=== PATIENT | male | born 1945 | race Caucasian/White ===

== ENCOUNTER → 2023-05-02 06:31 | Day surgery (SDC) | payer MEDICARE, OTHER, SELFPAY ==
[2023-05-02 12:05] LABS: Glucose - Point of Care 122 mg/dl (70-99)
== END ==
LOC: GI 06:31
PROVIDERS: ATTENDING PHYSICIAN Internal Medicine Gastroenterology
DX: K31.89 Other diseases of stomach and duodenum (principal); K31.7 Polyp of stomach and duodenum; R12 Heartburn; R19.7 Diarrhea, unspecified
CPT/HCPCS: 43239; 88305; 82962; 88342

== ENCOUNTER → 2023-09-16 11:14 | Outpatient (REF) | payer MEDICARE, OTHER, SELFPAY | LOC: HWRCS 11:14 | PROVIDERS: ATTENDING PHYSICIAN Internal Medicine Cardiovascular Disease; FAMILY PHYSICIAN Emergency Medicine | DX: I10 Essential (primary) hypertension (principal) | CPT/HCPCS: 93306 ==

== ENCOUNTER 2023-09-28 21:05 | Inpatient (IN) | payer MEDICARE, OTHER, SELFPAY ==
[2023-09-28] VITALS (8 sets, daily range): BP systolic 115–170; BP diastolic 35–80; BMI 34.0; BMI 33.3
[2023-09-28 15:56] LABS: % Basophils 0.3 % (0-2); % Immature Granulocytes 0.4 % (0-0.5); % Lymphocytes 4.1 % (20.5-51.1); % Monocytes 6.1 % (1.7-9.3); % Neutrophils 89.1 % (42.2-75.2); Absolute Basophils 0.1 10^3/uL (0-0.2); Absolute Immature Granulocytes 0.1 10^3/uL (0-0.05); Absolute Lymphocytes 0.7 10^3/uL (1.2-3.4); Absolute Monocytes 1.1 10^3/uL (0.1-0.6); Absolute Neutrophils 15.9 10^3/uL (1.4-6.5); Hematocrit 42.9 % (39.0-52.0); Hemoglobin 15.9 g/dL (13.0-18.0); Mean Corp Hgb Conc. 37.1 g/dL (33.0-37.0); Mean Corpuscular Hgb 32.9 pg (27.0-31.0); Mean Corpuscular Volume 88.8 fL (80.0-94.0); Mean Platelet Volume 8.7 fL (7.4-10.4); Nucleated Red Blood Cells % 0 % (-); Platelet Count 146 10^3/uL (130-400); Red Blood Cell Count 4.83 10^6/uL (4.70-6.10); Red Cell Dist. Width 12.6 % (11.5-14.5); White Blood Cell Count 17.8 10^3/uL (4.8-10.8)
[2023-09-28 16:16] LABS: ALT (SGPT) 21 U/L (0-50); AST (SGOT) 23 U/L (17-59); Alkaline Phosphatase 74 U/L (38-126); Blood Urea Nitrogen 13 mg/dl (9-20); Calcium 9.7 mg/dl (8.4-10.2); Carbon Dioxide 27 mmol/L (22-30); Chloride 97 mmol/L (98-107); Estimated Creatinine Clearance 88 ml/min; Glucose 155 mg/dl (70-99); Potassium 3.6 mmol/L (3.5-5.1); Sodium 134 mmol/L (135-145); Total Bilirubin 1.2 mg/dl (0.2-1.3); Total Protein 6.3 g/dl (6.3-8.2); eGFR > 60.00
[2023-09-28 16:31] LABS: Troponin I 0.038 ng/ml
--- NOTE | 2023-09-28 18:57 | ED.GENMED ---
History of Present Illness
General
Chief Complaint: Gait Dysfunction
Time Seen by Provider: 09/28/23 17:05
History of Present Illness
History of Present Illness:
78-year-old male with past medical history of hypertension, CAD status post CABG, hyperlipidemia, diabetes presenting to the emergency department for dizziness and feeling off balance. Patient reports symptoms for the past several days. Also
reports some diarrhea and dry heaving. Denies any vomiting. Denies any associate abdominal pain. Denies chest pain. Does note some dyspnea, however denies cough or fever. Denies any known sick contacts. Denies any fall. Denies the dizziness
as room spinning. Denies ever having the symptoms in the past. Patient lives at home by himself. Denies any focal weakness or sensory deficits to his extremities, notes global weakness. Denies additional acute medical complaints
Past History
Past History
ED Past Medical History: CAD, GERD, HTN, Hypercholesterolemia, NIDDM and Other (Cellulitis)
ED Past Surgical History: Appendectomy, Cardiac (CABG) and Cholecystectomy
Social History
Tobacco: Former smoker
Alcohol: Daily
Drug: None
Personal:
Living: alone
Employment: Retired
Family History
Family History: Other (Noncontributory)
Phy Exam
Physical Exam
Physical Exam:
General: No acute distress, dry mucous membranes
HEENT: protecting airway
Neck: appears supple
CV: Normal heart rate, regular rhythm, no evidence of cyanosis
Resp: No accessory muscle use, no increased work of breathing, lungs clear to auscultation bilaterally
Abd: Soft and non-distended, no tenderness to palpation, normal bowel sounds
Extremities: No deformities, no swelling, no erythema, pulses and sensation intact
Neuro: alert, no focal neurologic deficit
: deferred
Rectal: deferred
Psych: Normal affect
Skin: Intact
Course
Orders/Labs/Results
Orders:
Orders
09/28/23 15:38
Electrocardiogram (*1) Urgent
Reason for Study: Chest Pain
EKG- Treatment ONCE
CXR2 [CR Chest - 2 Views ] Urgent
Comment:
Reason For Exam: dizzy
09/28/23 15:44
Complete Blood Count/With Diff Urgent
Comprehensive Metabolic Panel Urgent
Troponin I Urgent
09/28/23 17:24
CT Head W/o Iv Contrast Urgent
Comment:
Reason For Exam: dizzy/off-balance
09/28/23 18:54
COVID-19 Antigen Urgent
Source: Nasal Swab
Abnormal Lab Results
09/28/23
15:44
WBC 17.8 H 10^3/uL
(4.8-10.8)
MCH 32.9 H pg
(27.0-31.0)
MCHC 37.1 H g/dL
(33.0-37.0)
Abs Immat Gran (auto) 0.1 H 10^3/uL
(0-0.05)
Absolute Neuts (auto) 15.9 H 10^3/uL
(1.4-6.5)
Absolute Lymphs (auto) 0.7 L 10^3/uL
(1.2-3.4)
Absolute Monos (auto) 1.1 H 10^3/uL
(0.1-0.6)
Neutrophils % 89.1 H %
(42.2-75.2)
Lymphocytes % 4.1 L %
(20.5-51.1)
Sodium 134 L mmol/L
(135-145)
Chloride 97 L mmol/L
(98-107)
Glucose 155 H mg/dl
(70-99)
Troponin I 0.038 H* ng/ml
09/28/23 15:44
09/28/23 15:44
Vital Signs
Initial and Last Documented VS:
Initial Vital Signs
Temp Pulse Resp BP Pulse Ox
98.2 F 85 16 129/53 96
09/28/23 15:35 09/28/23 15:35 09/28/23 15:35 09/28/23 15:35 09/28/23 15:35
Last Documented Vital Signs
Temp Pulse Resp BP Pulse Ox
98.2 F 74 16 170/71 94
09/28/23 15:35 09/28/23 18:15 09/28/23 18:15 09/28/23 18:03 09/28/23 18:15
MDM/Problems Addressed
MDM/Problems Addressed:
78-year-old male with past medical history of diabetes, hypertension, CAD status post CABG presenting for generally feeling unwell with nausea, dry heaving, shortness of breath, feeling off balance, diarrhea.
On exam, patient is in no acute distress, however appears somewhat dry with dry mucous membranes. Benign cardiac and pulmonary exam. No increased work of breathing. No tenderness to the abdomen. No focal neurologic deficits without concern for
central neurologic process. Patient EKG, abnormal with right bundle branch block and left anterior fascicular block, however without significant change from prior. Patient without chest pain or concern for ACS at this time. Suspect possible viral
syndrome versus electrolyte abnormality versus pneumonia. Plan for laboratory analysis, chest x-ray imaging, COVID swab. Given age and feeling off balance, will obtain CT brain imaging. Patient ambulated, normal gait
19:00- CT without acute intracranial abnormality. Troponin elevated, however again patient remains chest pain-free. Will continue to trend. Chest x-ray shows trace pleural effusion with consolidation. Possible pneumonia, leukocytosis, again
consistent with possible underlying infectious pathology. Patient afebrile, normal blood pressure, without concern for severe sepsis or septic shock. Will start gentle fluid hydration given trace pleural effusion. Will start antibiotics for
community-acquired pneumonia. Labs otherwise unremarkable. Patient lives at home by himself, fall risk. Feel warrants admission for continued monitoring. Patient agreeable to plan.
*EKG
Interpreted by ED Provider?: Yes
EKG Intrepretation Date: 09/28/23
EKG Intrepretation Time: 19:00
Interpretation: abnormal
Comparison EKG: no changes
Heart Rate: 81
Rate: normal
Rhythm: sinus
[place]: normal axis
Interval: normal interval
QRS Pattern: right bundle branch block and other (LAFB)
Ischemia: non-specific ST changes
*Critical Care Note
Total Time (30-74mins, 75-104mins- exclusive of procedures): Not Applicable
ED Attending Note
-
Portions of this chart may have been created with voice recognition software.� Occasional wrong word or��sound alike� substitutions may have occurred due to the inherent limitations of voice recognition software.
Discharge Plan
Departure
Prescriptions:
No Action
aspirin 325 MG tablet
325 mg PO HS
metoprolol succinate 50 MG tablet extended release 24 hr
75 mg PO HS
niacin [Niaspan Extended-Release] 500 MG tablet extended release 24 hr
500 mg PO AMHS
simvastatin 20 MG tablet
10 mg PO HS
chlordiazepoxide-methscopolamn 1 EACH capsule
2.5 mg PO BID
silodosin [Rapaflo] 8 MG capsule
8 mg PO HS
calcium polycarbophil [Fiber-Tabs] 625 MG tablet
625 mg PO QPM
omeprazole 20 MG capsule,delayed release(DR/EC)
20 mg PO BID
hydrochlorothiazide 25 MG tablet
25 mg PO DAILY
multivitamin with folic acid [Tab-A-Fabi] 1 TABLET tablet
1 tab PO DAILY
canagliflozin [Invokana] 100 MG tablet
100 mg PO QPM
calcium carbonate [Tums Ultra] 400 MG tablet,chewable
400 mg PO AMHS Qty: 14 0RF
meclizine 12.5 MG tablet
12.5 mg PO TID PRN (Reason: vertigo ) Qty: 15 0RF
Referrals:
Caroline Hastings MD [Family Provider] -
Interventions
Interventions:
*Risk Screen - Suicide Last Done: 09/28/23 15:35
*General Assessment Last Done: 09/28/23 16:59
*Neglect/Abuse Screening Last Done: 09/28/23 15:35
ED- Fall Risk Assessment Last Done: 09/28/23 15:35
*ED COVID-19 Vaccine History Last Done: 09/28/23 16:59
ED- Neurological Assessment Last Done: 09/28/23 17:01
ED-Musculoskeletal Assessment Last Done: 09/28/23 17:01
Discharge Date and Time
Print Language: OCCITAN
[2023-09-28] MEDS: ROCEPHIN 1000 MG IV (19:14)
[2023-09-28] MEDS: NSS 1000 IV ×2 (19:14→22:28)
[2023-09-28] MEDS: ZITHROMAX INFUSION 250 IV (19:14)
[2023-09-28 19:44] LABS: COVID-19 Antigen Negative (Negative)
--- NOTE | 2023-09-28 21:00 | HPS.HSE ---
Family Physician
-
Family Physician: Caroline Hastings MD
Chief Complaint
-
Generalized weakness
History of Present Illness
78-year-old male who lives independently alone status post CABG, hypertension and diabetes presented to the hospital complaining of few days of progressively worsening generalized weakness and malaise and fatigue and poor appetite and dry heaving
and dry mouth, also whitish coat covering his tongue, denies any chest pain or shortness of breath or fever or chill any syncope or palpitation no weakness or numbness in extremity, admitted couple days ago had couple episodes of nonbloody diarrhea
which went away, no vomiting or hematemesis denies any choking or coughing on his meal.
No sick contacts or recent travel.
Workup in the ER basically showed white cell count of 17 and chest x-ray showed left lower lobe small effusion. Consolidation concerning for pneumonia.
Admit he drinks 2 vodka drinks every night. Denies fall or accident.
Medical History
Past Medical History
Past Medical History: Reports Other
Additional Past Medical History:
Past medical history archive reviewed:
Anxiety
Type 2 diabetes mellitus
Dyslipidemia
Pretension
GERD
Obesity
Coronary artery disease, Status post CABG and PCI status post CABG
Vertigo
Surgical history:
Cardiac cath
Coronary bypass graft
Appendectomy
Cholecystectomy
ORIF left ankle
Social history, lives at home independently, denies smoking drinks every night couple drink of vodka. They deny drugs uses.
Family history: Positive for hypertension, diabetes and coronary artery disease
Past Surgical History: Reports Other
Social History
Unable to obtain full social history at this time due to: Other
Family History
Family History: Other
Allergies / Home Medications
Allergies reflects when Allergies were last updated in [facility].
Home Medications with original date entered in [facility]
Allergy/Medication List:
Allergies
Allergy/AdvReac Type Severity Reaction Status Date / Time
iodine Allergy Unknown Unknown Verified 09/28/23 15:37
Sulfa (Sulfonamide Allergy Swelling Verified 09/28/23 15:37
Antibiotics)
Home Medications
aspirin 325 mg tablet 325 mg PO HS Blood clot prevention/tx 12/19/18
chlordiazepoxide-methscopolamine 5 mg-2.5 mg capsule 2.5 mg PO BID Mental Health/Anxiety 12/19/18
metoprolol succinate 50 mg tablet,extended release 24 hr 75 mg PO HS Blood pressure 12/19/18
niacin 500 mg tablet,extended release 24 hr (Niaspan) 500 mg PO AMHS Supplement 12/19/18
silodosin 8 mg capsule (Rapaflo) 8 mg PO HS 12/19/18
simvastatin 20 mg tablet 10 mg PO HS High cholesterol 12/19/18
calcium polycarbophil 625 mg tablet (Fiber-Tabs) 625 mg PO QPM Constipation 04/13/19
canagliflozin 100 mg tablet (Invokana) 100 mg PO QPM Diabetes 04/13/19
hydrochlorothiazide 25 mg tablet 25 mg PO DAILY Blood pressure 04/13/19
multivitamin with folic acid 400 mcg tablet (Tab-A-Fabi) 1 tab PO DAILY Supplement 04/13/19
omeprazole 20 mg capsule,delayed release 20 mg PO BID Gastrointestinal issue 04/13/19
calcium carbonate (Tums Ultra) 400 mg PO AMHS Gastrointestinal issue ##14 01/04/21
meclizine 12.5 mg tablet 12.5 mg PO TID PRN vertigo #15 tabs 01/07/21
Review of Systems
-
A 12 point ROS was completed and negative except as noted: Yes
Physical Exam
Vital Signs
Vital Signs
Temp Pulse Resp BP Pulse Ox
98.2 F 74 16 170/71 94
09/28/23 15:35 09/28/23 18:15 09/28/23 18:15 09/28/23 18:03 09/28/23 18:15
Physical exam:
General: Awake, alert and oriented x3, overweight, lethargic not in distress and holds appropriate conversation.
HEENT: BP tongue with a whitish coverage, no active discharge, ecchymosis or bruising, dry lips, tongue and mucous membrane.
Eyes: No discharge or red conjunctiva, no nystagmus, pupils are reactive and equal
Neck:Supple, no JVD no bruit no goiter.
Respiratory: Normal AP contour and diameter, normal chest wall movement, normal respiratory effort, no respiratory distress,
Lungs: Good air entry bilaterally, no wheezing or rhonchi, no rales or crackles
Heart: S1, S2 regular, normal rate, no added sound.
Gastrointestinal: Positive bowel sounds, soft, nontender, no guarding or rigidity or organomegaly
Musculoskeletal: , no chest wall abnormality or tenderness. All joints and extremities have good range of motion, no muscle tenderness or any joint swelling or tenderness.
Extremities: No pitting edema, good peripheral pulses, good range of motion
Skin: Warm and dry, no ulceration, normal color.
Neurological: Awake, alert and oriented x3, no facial droop,, speech clear and comprehensive, good muscle tone, normal sensory and motor function
Psychiatric: Normal mood, normal thought and judgment, normal affect,
Physical Exam
General: Other
Laboratory Results
-
09/28/23 15:44
09/28/23 15:44
Laboratory Results
Total Bilirubin 1.2 mg/dl (0.2-1.3) 09/28/23 15:44
AST 23 U/L (17-59) 09/28/23 15:44
ALT 21 U/L (0-50) 09/28/23 15:44
Alkaline Phosphatase 74 U/L (38-126) 09/28/23 15:44
Troponin I 0.038 ng/ml H* 09/28/23 15:[address]: No acute intracranial abnormality.
Chest x-ray:Lungs: Trace left pleural effusion with associated consolidation. No visualized pneumothorax.
EKG showed normal sinus rhythm with 80, WA 190, QTc 480, right bundle branch block otherwise no acute abnormality and compared to prior EKG PVCs no longer present
Data Reviewed
-
Diagnostic Radiology: Image Personally Visualized and interpreted and Discussed with Patient
CT Scan: Report Reviewed by me and Discussed with Patient
Lab Data: Labs Reviewed by me and Discussed with Patient
Old Records: Reviewed
Impression/Plan
-
IMPRESSION:
78-year-old male presented to the hospital with generalized weakness and fatigue and dry heaving for the last few day, with poor appetite, concerning for the left lower lobe infiltration pneumonia while other causes may need to be considered, doubt
a stroke or any cardiac event and has been troponin minimally elevated.
Generalized weakness
Left lower lobe infiltration, concerning for community-acquired pneumonia
Small left pleural effusion
Leukocytosis
Dehydration
Oral candidiasis
Elevated troponin mild
Mild hyponatremia
Diabetes mellitus
Coronary artery disease status post CABG
Obesity
Alcohol use
PLAN:
Managed per community acquired pneumonia I will use doxycycline instead of Zithromax because of mild elevated QTc
IV Rocephin
I will get a CT of the chest without contrast tomorrow for further information about the left lower lobe consolidation and effusion.
IV fluid
Tylenol as needed
Recheck lab
Monitor vital sign
Cardiac monitoring for now
I will hold cardiology consult as troponin is minimally elevated likely secondary to above, if troponin become higher or becomes symptomatic then will consider cardiology consult.
Even he says he drinks 2 alcohol nightly all manage will monitor him for alcohol withdrawal protocol
Get alcohol level
Thiamine
Nystatin suspension orally
Continue Invokana and monitor blood sugar
Continue metoprolol succinate
Statin
Recheck labs
All discussed with the patient in detail and expressed understanding
CODE STATUS of full code
DVT prophylaxis Lovenox
[2023-09-28 21:49] LABS: Magnesium 1.8 mg/dl (1.6-2.3); Phosphorus 2.5 mg/dl (2.5-4.5)
[2023-09-28 21:52] LABS: Alcohol None Detected
[2023-09-28 22:12] LABS: Lactic Acid 1.2 mmol/L (0.7-2.0)
[2023-09-28] MEDS: TOPROL XL 75 MG PO (22:20)
[2023-09-28] MEDS: MYCOSTATIN ORAL SUSPENSION 5 ML PO (22:20)
[2023-09-28] MEDS: FLOMAX 0.4 MG PO (22:20)
[2023-09-28] MEDS: LIPITOR 10 MG PO (22:20)
[2023-09-28 22:31] LABS: Troponin I 0.044 ng/ml
[2023-09-28] MEDS: NIASPAN TIME RELEASE 500 MG PO (23:05)
[2023-09-28] MEDS: VIBRAMYCIN 260 MG IV (23:05)
[2023-09-28 23:25] LABS: Urine Albumin Negative (Neg - Trace); Urine Bilirubin Negative (Negative); Urine Character Clear (Clear); Urine Color Yellow; Urine Glucose 3+ (Negative); Urine Ketone 1+ (Negative); Urine Leukocyte Negative (Negative); Urine Nitrite Negative (Negative); Urine Occult Blood Negative (Negative); Urine Urobilinogen Negative (Neg - 1+)
--- NOTE | 2023-09-28 23:29 | PTCARENOTE ---
Received pt on the floor around 21:50, AAOx3, able to ambulate from stretcher to the bed with no assistance. Pt has call clinton in reach and vitals are stable.
[2023-09-29] VITALS (8 sets, daily range): BP systolic 112–168; BP diastolic 42–69; PULSE 66; O2SAT 96
[2023-09-29 06:50] LABS: Glucose - Point of Care 138 mg/dl (70-99)
[2023-09-29 07:57] LABS: % Basophils 0.2 % (0-2); % Eosinophils 0.6 % (0-6); % Immature Granulocytes 0.5 % (0-0.5); % Lymphocytes 11.5 % (20.5-51.1); % Monocytes 10.3 % (1.7-9.3); % Neutrophils 76.9 % (42.2-75.2); Absolute Eosinophils 0.1 10^3/uL (0-0.7); Absolute Monocytes 0.9 10^3/uL (0.1-0.6); Absolute Neutrophils 6.4 10^3/uL (1.4-6.5); Hematocrit 39.4 % (39.0-52.0); Hemoglobin 14.2 g/dL (13.0-18.0); Mean Corpuscular Hgb 32.6 pg (27.0-31.0); Mean Corpuscular Volume 90.6 fL (80.0-94.0); Mean Platelet Volume 8.8 fL (7.4-10.4); Nucleated Red Blood Cells % 0 % (-); Platelet Count 121 10^3/uL (130-400); Red Blood Cell Count 4.35 10^6/uL (4.70-6.10); White Blood Cell Count 8.4 10^3/uL (4.8-10.8)
[2023-09-29 08:06] LABS: Blood Urea Nitrogen 14 mg/dl (9-20); Calcium 8.7 mg/dl (8.4-10.2); Carbon Dioxide 29 mmol/L (22-30); Chloride 100 mmol/L (98-107); Estimated Creatinine Clearance 87 ml/min; Glucose 119 mg/dl (70-99); Potassium 3.1 mmol/L (3.5-5.1); Sodium 135 mmol/L (135-145); eGFR > 60.00
[2023-09-29 08:17] LABS: Troponin I 0.032 ng/ml
[2023-09-29] MEDS: NOVOLOG FLEXPEN-MODERATE RESISTANCE SC ×2 (09:42→12:36)
[2023-09-29] MEDS: NIASPAN TIME RELEASE 500 MG PO ×2 (09:43→21:45)
[2023-09-29] MEDS: PROTONIX 40 MG PO ×2 (10:43→21:46)
[2023-09-29] MEDS: VITAMIN B1 100 MG PO (10:43)
[2023-09-29] MEDS: FOLVITE 1 MG PO (10:43)
[2023-09-29] MEDS: MYCOSTATIN ORAL SUSPENSION 5 ML PO ×4 (10:44→21:46)
[2023-09-29] MEDS: VIBRAMYCIN 260 MG IV (10:45)
[2023-09-29 11:43] LABS: Glucose - Point of Care 193 mg/dl (70-99)
[2023-09-29] MEDS: NSS 1000 IV (11:44)
[2023-09-29] MEDS: NOVOLOG FLEXPEN-MODERATE RESISTANCE 1 UNITS SC ×2 (12:00→17:45)
--- NOTE | 2023-09-29 12:06 | W.PN.HOSP.TC ---
Today's Communication/Plan
-
see note
Assessment / Plan
Assessment / Plan
CT chest
1).There is a 1 cm pulmonary nodule in the posterior aspect of the right lung apex which had measured only 7 mm on the 10/22/2017 examination. The slow interval growth of this lesion suggests probable benign etiology, however, if clinically indicated,
this could be followed with PET scan for further evaluation.
2).There is a 2.8 cm spiculated area of pleural parenchymal density at the medial aspect of the right lung apex, stable dating back to 10/22/2017 indicating that it is benign.
3). There is a 1.5 mm nodular density at the posterior aspect of the left lung apex, stable when compared with the 10/22/2017 examination indicating that it is benign.
4). Atherosclerosis
5). Mild emphysematous changes
6). Enlarged substernal thyroid
7). Postoperative changes with wire sternal sutures

1. Generalized weakness
Episodic dizziness
- PT evaluation pending today
- CT head neg
- check ortho vitals
- B12/folate check as have chronic alcohol use
- Meds reviewed, hold HCTz . continue toprol. also on flomax and will need to be held if orthostatic positive
2. Alcohol use disorder
- no signs of withdrawal
- continue monitoring with MSAS/ativan prn
3. Leukocytosis - resolved
- suspected pneumonia based on cxr but not present on CT chest
- check procal
- hold further abx
4. Oral thrush
- maintain on nystatin liquid
5. Multiple pulm nodules - presumed benign
-see CT report above as stable otherwise except one nodule which shows growth
-doesnot f/u with pulmonology, will need to establish care.
6. Troponin elevation
- trended down, nonischemic cardiomyopathy related
7. Hypokalemia
- replace prn
CAD/CABG
Type II DM
Obesity
IBS - on chlordiazepoxide/clenidium 2.5mg bid. PDMP reviewed.
DVT PPX - lovenox
Full code
Anticipated Discharge: Within 24 hours
Subjective/Interval History
-
Date of Service: September 29, 2023
having lunch, no dizziness
no issues overnight
Objective Data
-
Labs:
Laboratory Results
09/29/23
06:24
WBC 8.4
Hgb 14.2
Hct 39.4
Plt Count 121 L
Sodium 135
Potassium 3.1 L
Chloride 100
Carbon Dioxide 29
BUN 14
Creatinine 0.8
Glucose 119 H
Calcium 8.7
Vital Signs:
Vital Signs
Temp Pulse Resp BP Pulse Ox
98.4 F 67 16 122/48 96
09/29/23 11:27 09/29/23 11:27 09/29/23 11:27 09/29/23 11:27 09/29/23 11:27
I&O
09/28/23 09/29/23 09/30/23
06:59 06:59 06:59
Intake Total 480 / 480
Output Total 1025 / 1025
Balance -545 / -545
Review of Systems
-
Respiratory: Reports No Symptoms
Cardiac: Reports No Symptoms
Abdomen/GI: Reports No Symptoms
Physical Exam
-
General: No Apparent Distress and Comfortable
HEENT: Negative Oxygen
Respiratory: Clear to Auscultation
Cardiac: Regular Rhythm and S1/S2; Negative Murmur or Rub
GI: Soft, Nontender, Nondistended and Normal Bowel Sounds
Musculoskeletal: No Edema
Neuro: Awake, Alert, Oriented, No Motor Deficits and Nonfocal/Grossly Intact
Psych: Calm
[2023-09-29 12:21] LABS: Glycohemoglobin (HgbA1c) 6.5 % (4.0-5.6)
[2023-09-29] MEDS: KCL 40 MEQ PO (12:37)
[2023-09-29 13:17] LABS: Procalcitonin 0.16 ng/ml (0.0-0.25)
--- NOTE | 2023-09-29 15:13 | CM ---
Patient seen bedside.
IA completed.
Patient lives alone in a 1st floor apartment.
Patient independent prior to admission without assistive devices.
Patient drives and works.
Patient has not had VN in the past. Denies home care needs.
PT eval completed, no needs indicated.
Patient has transportation home.
PCP: Dr Hastings
Pharmacy: [facility]
Plan: home no needs anticipated.
[2023-09-29 16:29] LABS: Glucose - Point of Care 161 mg/dl (70-99)
[2023-09-29 16:35] LABS: Folate > 20.0 ng/ml (2.76-20); Vitamin B12 591 pg/ml (239-931)
[2023-09-29] MEDS: LOVENOX 40 MG SC (17:46)
[2023-09-29] MEDS: JARDIANCE 10 MG PO (17:46)
[2023-09-29 21:12] LABS: Glucose - Point of Care 198 mg/dl (70-99)
[2023-09-29] MEDS: TOPROL XL 75 MG PO (21:45)
[2023-09-29] MEDS: LIPITOR 10 MG PO (21:46)
[2023-09-29] MEDS: FLOMAX 0.4 MG PO (21:46)
[2023-09-30] VITALS (7 sets, daily range): BP systolic 127–177; BP diastolic 42–86; PULSE 53–61
[2023-09-30 07:51] LABS: Glucose - Point of Care 143 mg/dl (70-99)
[2023-09-30] MEDS: NOVOLOG FLEXPEN-MODERATE RESISTANCE SC ×2 (07:58→11:44)
[2023-09-30 08:01] LABS: Blood Urea Nitrogen 14 mg/dl (9-20); Calcium 8.8 mg/dl (8.4-10.2); Carbon Dioxide 29 mmol/L (22-30); Chloride 102 mmol/L (98-107); Estimated Creatinine Clearance 87 ml/min; Glucose 122 mg/dl (70-99); Potassium 3.9 mmol/L (3.5-5.1); Sodium 135 mmol/L (135-145); eGFR > 60.00
--- NOTE | 2023-09-30 08:15 | W.PN.HOSP.TC ---
Addendum entered and electronically signed by Una Le MD 09/30/23 19:01:
EKG noted- Hold BB tonight due to bradyarrythmia
Addendum entered and electronically signed by Una Le MD 09/30/23 18:18:
I personally performed a history and physical exam of the patient and discussed management with the resident. I reviewed the resident's note and agree with the documented findings and plan of care HPI/CC.
Addendum entered and electronically signed by Una Le MD 09/30/23 18:17:
78-year-old man admitted with generalized weakness
CT of the chest-1 cm pulmonary nodule in the posterior right lung apex-, 7 mm in 2018
CVS: S1-S2 normal, sm at apex
Chest: CTA B/L
Abdomen: Soft, NT / Bowel sounds present
Extremities: No edema, normal pulses
CANDY MIXER: Non focal exam
# Generalized weakness- Positive orthos
Dizziness
PVCS on the monitor
R/O ischemia - trop
MRI brain
Teds and abdominal binder
Advised to stop alcohol
# Oral candidiasis-continue nystatin
# Mild hyponatremia-resolved
# Pulmonary nodules
1 cm pulmonary nodule in the posterior aspect of the right lung apex-1 cm now <millimeter in 2018
2.8 cm spiculated area in the pleural-parenchymal density in the medial aspect of the right lung apex stable since 2018
1.5 mm nodular density in the posterior aspect of the left lung apex-stable since 2018
Needs outpatient follow-up including PET scan
# Hypokalemia-resolved
# Diabetes-hemoglobin A1c 6.5
Sugars are stable
On Invokana as outpatient
# Coronary artery disease with history of Stents and CABG
Echo-normal LV size, wall thickness and systolic function. Ejection fraction 55 to 60%. Abnormal septal motion consistent with postoperative status. Diastolic function indeterminate. Mitral valve opens normally. Mitral annular calcification.
Trace MR.
Mild elevation in Trope nonischemic myocardial injury
# Atherosclerosis/hyperlipidemia-Statin
# Enlarged substernal thyroid
Ultrasound-multinodular goiter. 2 nodules on the right and 1 nodule on the left per ultrasound 03/05/2023
Outpatient follow-up
# Enlarged prostate-
# Hepatic steatosis
# GERD-continue PPI
# IBS - on chlordiazepoxide/Clindinium 2.5mg bid.
# Sleep apnea-noncompliant with CPAP
# Daily alcohol use,MSAS protocol. Thiamine replacement
# Diverticulosis
# Nephrolithiasis
# Obesity with a BMI of 33
# Ex Smoker
# DVT prophylaxis-Lovenox
# Full code
Update med Rec
Original Note:
Today's Communication/Plan
-
Check carotid ultrasound
Consider brain MRI
Hold HCTZ and Flomax
MSAS protocol
Assessment / Plan
Assessment / Plan
Assessment: 78-year-old male with past medical history of hypertension, CAD status post CABG, hyperlipidemia, diabetes who presented to ED on 09/28/23 with dizziness, loss of balance, dry heaving and some dyspnea for past several days. Denies any
vomiting. Notes global weakness, denies falls, focal weakness or sensory deficits to his extremities, notes global weakness.
1. Generalized weakness
Episodic dizziness
- CT head neg
- Positive orthostatic vitals.
- Hold Flomax and HCTZ given positive orthostatics, continue Toprol.
- Check carotid ultrasound.
- Consider brain MRI if negative, r/o posterior circulation pathology.
- B12/folate WNL.
- PT evaluation appreciated, no need for PT on discharge.
2. Alcohol use disorder
- no signs of withdrawal, MSAS Score 0
- continue monitoring with MSAS/ativan prn
3. Leukocytosis - resolved
- suspected pneumonia based on cxr but not present on CT chest
- Procalcitonin 0.16
- Abx discontinued.
4. Oral thrush
- maintain on nystatin liquid
5. Multiple pulm nodules - presumed benign
-see CT report above as stable otherwise except one nodule which shows growth
-doesnot f/u with pulmonology, will need to establish care.
6. Troponin elevation
- trended down, nonischemic cardiomyopathy related
7. Hypokalemia
-Resolved with supplementation.
CAD/CABG
Type II DM
Obesity
IBS - on chlordiazepoxide/clenidium 2.5mg bid. PDMP reviewed.
DVT PPX - lovenox
Full code

Data:
CT chest
1).There is a 1 cm pulmonary nodule in the posterior aspect of the right lung apex which had measured only 7 mm on the 10/22/2017 examination. The slow interval growth of this lesion suggests probable benign etiology, however, if clinically indicated,
this could be followed with PET scan for further evaluation.
2).There is a 2.8 cm spiculated area of pleural parenchymal density at the medial aspect of the right lung apex, stable dating back to 10/22/2017 indicating that it is benign.
3). There is a 1.5 mm nodular density at the posterior aspect of the left lung apex, stable when compared with the 10/22/2017 examination indicating that it is benign.
4). Atherosclerosis
5). Mild emphysematous changes
6). Enlarged substernal thyroid
7). Postoperative changes with wire sternal sutures
Anticipated Discharge: 24 - 48 hours
Subjective/Interval History
-
Date of Service: September 30, 2023
Objective Data
-
Labs:
Laboratory Results
09/30/23
06:37
Sodium 135
Potassium 3.9 D
Chloride 102
Carbon Dioxide 29
BUN 14
Creatinine 0.8
Glucose 122 H
Calcium 8.8
Vital Signs:
Vital Signs
Temp Pulse Resp BP Pulse Ox
97.7 F 80 20 134/71 97
09/30/23 07:31 09/30/23 07:31 09/30/23 07:31 09/30/23 07:31 09/30/23 07:31
I&O
09/29/23 09/30/23 10/01/23
06:59 06:59 06:59
Intake Total 480 / 480 960 / 960
Output Total 1025 / 1025 2610 / 2610
Balance -545 / -545 -1650 / -1650
Physical Exam
-
General: No Apparent Distress and Comfortable
HEENT: Moist Mucous Membranes; Negative Oxygen
Respiratory: Clear to Auscultation
Cardiac: Regular Rhythm and S1/S2; Negative Murmur or Rub
GI: Soft, Nontender, Nondistended and Normal Bowel Sounds
Musculoskeletal: No Edema
Neuro: Awake, Alert, Oriented, No Motor Deficits and Nonfocal/Grossly Intact
Psych: Calm
Data Reviewed
-
Diagnostic Radiology: Image personally visualized and interpreted, Report Reviewed by me and Discussed with Physician
CT Scan: Image personally visualized and interpreted, Report Reviewed by me and Discussed with Physician
Labs: Labs Reviewed by me and Discussed with Physician
Old Records: Reviewed
[2023-09-30] MEDS: VITAMIN B1 100 MG PO (08:52)
[2023-09-30] MEDS: PROTONIX 40 MG PO ×2 (08:52→22:00)
[2023-09-30] MEDS: FOLVITE 1 MG PO (08:52)
[2023-09-30] MEDS: NIASPAN TIME RELEASE 500 MG PO ×2 (08:52→22:00)
[2023-09-30] MEDS: MYCOSTATIN ORAL SUSPENSION 5 ML PO ×4 (08:52→22:00)
[2023-09-30 11:39] LABS: Glucose - Point of Care 146 mg/dl (70-99)
--- NOTE | 2023-09-30 15:38 | CM ---
Chart reviewed and plan is to home when stable.
Plan; Home when stable.
[2023-09-30 16:01] LABS: Glucose - Point of Care 152 mg/dl (70-99)
[2023-09-30] MEDS: NOVOLOG FLEXPEN-MODERATE RESISTANCE 1 UNITS SC (16:18)
[2023-09-30] MEDS: JARDIANCE 10 MG PO (17:11)
[2023-09-30] MEDS: LOVENOX 40 MG SC (17:11)
[2023-09-30 19:44] LABS: Troponin I < 0.012 ng/ml
[2023-09-30] MEDS: LIPITOR 10 MG PO (22:00)
[2023-09-30 22:18] LABS: Glucose - Point of Care 140 mg/dl (70-99)
[2023-10-01 01:58] LABS: Troponin I 0.012 ng/ml
[2023-10-01 03:15] VITALS: BP 181/81
[2023-10-01 07:03] LABS: % Basophils 0.4 % (0-2); % Eosinophils 6.4 % (0-6); % Immature Granulocytes 0.5 % (0-0.5); % Lymphocytes 19.6 % (20.5-51.1); % Monocytes 10.1 % (1.7-9.3); Absolute Eosinophils 0.4 10^3/uL (0-0.7); Absolute Lymphocytes 1.1 10^3/uL (1.2-3.4); Absolute Monocytes 0.6 10^3/uL (0.1-0.6); Absolute Neutrophils 3.6 10^3/uL (1.4-6.5); Hematocrit 39.6 % (39.0-52.0); Hemoglobin 14.4 g/dL (13.0-18.0); Mean Corp Hgb Conc. 36.4 g/dL (33.0-37.0); Mean Corpuscular Hgb 31.9 pg (27.0-31.0); Mean Corpuscular Volume 87.8 fL (80.0-94.0); Mean Platelet Volume 9.1 fL (7.4-10.4); Nucleated Red Blood Cells % 0 % (-); Platelet Count 141 10^3/uL (130-400); Red Blood Cell Count 4.51 10^6/uL (4.70-6.10); Red Cell Dist. Width 12.7 % (11.5-14.5); White Blood Cell Count 5.7 10^3/uL (4.8-10.8)
[2023-10-01 07:22] LABS: Blood Urea Nitrogen 10 mg/dl (9-20); Calcium 8.9 mg/dl (8.4-10.2); Carbon Dioxide 28 mmol/L (22-30); Chloride 103 mmol/L (98-107); Estimated Creatinine Clearance 99 ml/min; Glucose 125 mg/dl (70-99); Potassium 3.8 mmol/L (3.5-5.1); Sodium 135 mmol/L (135-145); eGFR > 60.00
[2023-10-01 07:35] VITALS: BP 177/68
[2023-10-01 07:38] VITALS: BP 165/64; BP 177/68; BP 182/70; PULSE 55; PULSE 57; PULSE 64
--- NOTE | 2023-10-01 08:10 | W.PN.HOSP.TC ---
Addendum entered and electronically signed by Una Le MD 10/01/23 16:38:
discharge time more than 37 min
Addendum entered and electronically signed by Una Le MD 10/01/23 16:38:
I personally performed a history and physical exam of the patient and discussed management with the resident. I reviewed the resident's note and agree with the documented findings and plan of care HPI/CC.
CVS: S1-S2 normal
Chest: CTA B/L
Abdomen: Soft, NT / Bowel sounds present
Extremities: No edema, normal pulses
GRAPE CRUSHER: Non focal exam
Hold BB for discharge
Discussed about sleep study
Discussed about BP monitoring, at home
Lisinopril and Norvasc started
OP traffic monitor specialist.
Pt asymptomatic.
OK for discharge
Left message for daughter.
Original Note:
Today's Communication/Plan
-
Hold HCTZ, and Toprol
Continue tamsulosin
Start amlodipine and lisinopril
Outpatient cardiology follow-up
Outpatient pulmonary follow-up
Discharge planning
Assessment / Plan
Assessment / Plan
Assessment: 78-year-old male with past medical history of vertigo, hypertension, CAD status post CABG, hyperlipidemia, diabetes who presented to ED on 09/28/23 with dizziness, loss of balance, dry heaving and some dyspnea for past several days.
Denies any vomiting. Notes global weakness, denies falls, focal weakness or sensory deficits to his extremities, notes global weakness.
1. Orthostatic hypotension
- Presentation with episodic dizziness and generalized weakness.
- Improved with holding HCTZ and Toprol.
- Etiology likely due to paroxysmal bradycardia; beta-kina induced. Other possible etiologies include vertigo exacerbation, neuropathy.
- Multiple PACs on telemetry, possible ectopic atrial bradycardia with occasional PVCs on subsequent ECG.
- Teds and abdominal binder.
- B/L carotid ultrasound with <50% stenosis.
- Brain MRI with no posterior circulation pathology.
- Cardiology recs appreciated
- B12/folate WNL.
- PT evaluation appreciated, no need for PT on discharge.
- Outpatient cardiology follow-up.
2. Alcohol use disorder
- no signs of withdrawal, MSAS Score 0
- continue monitoring with MSAS/ativan prn
- Alcohol cessation encouraged
3. Leukocytosis - resolved
- suspected pneumonia based on cxr but not present on CT chest
- Procalcitonin 0.16
- Blood cultures pending
- Abx discontinued.
4. Oral thrush
- maintain on nystatin liquid
5. Multiple pulm nodules - presumed benign
- CT chest report below with progressed 1 cm pulmonary nodule in the posterior right lung apex-, 7 mm in 2018.
- Does not f/u with pulmonology, will need to establish care.
- Needs outpatient PET scan follow-up
6. Troponin elevation
- Trended down, nonischemic cardiomyopathy related
7. Hypokalemia
-Resolved with supplementation.
8. Mild hyponatremia
- Resolved
9. Type II DM
- A1c 6.5
-Well-controlled on Invokana as outpatient
10. Essential hypertension
- Hold HCTZ given orthostatic hypotension.
- Start amlodipine 2.5 mg daily, and Lisinopril 5mg daily.
- Potential side effects discussed with pt.
- Encouraged to check BP at home and F/u with PCP for adjustments.
11. IBS
- on chlordiazepoxide/clenidium 2.5mg bid.
- PDMP reviewed.
12. History of BPH
- Continue Flomax
DVT PPX -Lovenox
Full code

Data:
Head CT 09/28/2023
No acute intracranial abnormality noted.
CT chest 09/29/2023
1).There is a 1 cm pulmonary nodule in the posterior aspect of the right lung apex which had measured only 7 mm on the 10/22/2017 examination. The slow interval growth of this lesion suggests probable benign etiology, however, if clinically indicated,
this could be followed with PET scan for further evaluation.
2).There is a 2.8 cm spiculated area of pleural parenchymal density at the medial aspect of the right lung apex, stable dating back to 10/22/2017 indicating that it is benign.
3). There is a 1.5 mm nodular density at the posterior aspect of the left lung apex, stable when compared with the 10/22/2017 examination indicating that it is benign.
4). Atherosclerosis
5). Mild emphysematous changes
6). Enlarged substernal thyroid
7). Postoperative changes with wire sternal sutures
Vascular ultrasound 09/30/2023
RIGHT: Calcified plaque is identified in the common carotid artery and proximal internal carotid artery. Carotid velocity measurements are consistent with less than 50% stenosis. Vertebral artery flow is antegrade.
LEFT: Calcified plaque is identified in the common carotid artery and proximal internal carotid artery. Carotid velocity measurements are consistent with less than 50% stenosis. Vertebral artery flow is antegrade.
Multiple thyroid nodules are identified as demonstrated on dedicated thyroid ultrasound in February 2023.
Brain MRI 09/30/2023
No acute intracranial abnormality noted. Specifically, no acute infarct.
No evidence to suggest vestibular cochlear schwannoma.
Incidental note is made of a type II anterior inferior cerebellar artery vascular loop on the right and a type III anterior inferior cerebellar artery vascular loop on the left.
Relatively centrally situated in the anterior left temporal lobe, there is a small somewhat linear focus of low signal intensity susceptibility noted, consistent with hemosiderin, likely reflecting old/remote hemorrhagic insult.
Small, 9 mm meningioma in the inferolateral right frontal region.
Anticipated Discharge: Today
Subjective/Interval History
-
Date of Service: October 01, 2023
Objective Data
-
Labs:
Laboratory Results
10/01/23
06:21
WBC 5.7
Hgb 14.4
Hct 39.6
Plt Count 141
Sodium 135
Potassium 3.8
Chloride 103
Carbon Dioxide 28
BUN 10
Creatinine 0.7
Glucose 125 H
Calcium 8.9
Vital Signs:
Vital Signs
Temp Pulse Resp BP Pulse Ox
98.4 F 57 18 177/68 99
10/01/23 07:35 10/01/23 07:35 10/01/23 07:35 10/01/23 07:35 10/01/23 07:35
I&O
09/30/23 10/01/23 10/02/23
06:59 06:59 06:59
Intake Total 960 / 960 1560 / 1560
Output Total 2610 / 2610
Balance -1650 / -1650 1560 / 1560
Review of Systems
-
History Source: Patient
All other systems: Not reviewed unless documented
Constitutional: Reports No Symptoms; Denies Fever
EENT: Reports No Symptoms Reported
Respiratory: Reports No Symptoms
Cardiac: Reports No Symptoms
Abdomen/GI: Reports No Symptoms
Genitourinary: Reports No Symptoms
Neuro: Reports Dizzy; Denies Headache, Weakness, Numbness or Seizures
Hematologic / Lymphatic: Reports No Symptoms
Physical Exam
-
General: No Apparent Distress and Comfortable
HEENT: Moist Mucous Membranes; Negative Oxygen
Respiratory: Clear to Auscultation
Cardiac: Regular Rhythm and S1/S2; Negative Murmur or Rub
GI: Soft, Nontender, Nondistended and Normal Bowel Sounds
Musculoskeletal: No Edema
Skin: Warm
Neuro: Awake, Alert, Oriented, No Motor Deficits and Nonfocal/Grossly Intact
Psych: Calm and Intact Judgement/Insight
Data Reviewed
-
Diagnostic Radiology: Image personally visualized and interpreted, Report Reviewed by me and Discussed with Physician
CT Scan: Image personally visualized and interpreted, Report Reviewed by me and Discussed with Physician
Labs: Labs Reviewed by me and Discussed with Physician
Old Records: Reviewed
[2023-10-01 08:14] LABS: Glucose - Point of Care 133 mg/dl (70-99)
[2023-10-01] MEDS: NOVOLOG FLEXPEN-MODERATE RESISTANCE SC ×2 (08:15→15:48)
[2023-10-01] MEDS: PROTONIX 40 MG PO (08:22)
[2023-10-01] MEDS: MYCOSTATIN ORAL SUSPENSION 5 ML PO ×2 (08:22→12:08)
[2023-10-01] MEDS: NIASPAN TIME RELEASE 500 MG PO (08:22)
[2023-10-01] MEDS: VITAMIN B1 100 MG PO (08:23)
[2023-10-01] MEDS: FOLVITE 1 MG PO (08:23)
[2023-10-01] MEDS: NORVASC 10 MG PO (09:25)
--- NOTE | 2023-10-01 09:36 | CON.CAR ---
Addendum entered and electronically signed by Lenny Alexandre MD 10/01/23 12:26:
I saw and examined the patient.
The AQUATICS SPECIALIST or PA's note was reviewed and I agree with the note.
Comment: General: Well developed, well nourished in NAD.
Neck: Supple, no JVD, HJR, carotids +2 B/L, no bruits bilaterally.
Heart: Non displaced PMI, RRR, no murmurs, No S3, S4, no rubs.
Lungs: Scattered rhonchi
Abdomen: Normal bowel sounds, soft, non-tender, non-distended.
Extremities: No clubbing, cyanosis or edema bilaterally.
Neuro: Grossly nonfocal, awake, alert and oriented x3.
Art has history of CAD status post CABG x 2 in 1995, RCA PCI, hypertension, sleep apnea noncompliant with CPAP, diabetes. He presented with weakness and feeling woozy. He also had a dry throat and felt off balance for the last several days.
Cardiology is consulted for bradycardia. Of note he had been evaluated at [facility] for syncope with apparently normal workup.
He has a constellation of symptoms which are not likely related to bradycardia. Toprol has been on hold. Lisinopril and Norvasc have been added. Will arrange outpatient monitor and follow-up. No objection to discharge. Discussed with primary
service
Original Note:
Consultation
Consultation Request
Date/Time Consultation Performed: 10/01/23
Requesting Provider: Dr. Le
Performing Provider: Ginger West PA-C for Dr. Alexandre
Reason for Consultation: weakness, bradycardia
Medical History
-
Chief Complaint: weakness
History of Present Illness:
Patient is an 78 yo M with PMH of CAD s/p CABG x2 in 1995 at OSH, s/p RCA PCI 1999, RBBB and LAFB, HTN, HLD, SYDNEE previously on CPAP however recently not compliant, DM2, thyroid nodules who presented to due to feelings of weakness, 'woozy.' He
reports he has had a dry throat and is felt off balance for the last several days leading up to admission. He denies fevers, chills, sick contacts. He denies palpitations, shortness of breath, chest pain. He reports approximately 3 weeks ago he
had a fall/syncopal episode coming home from a show in [place]. He was evaluated at [facility] for this without clear etiology of event noted. He has not had further falls or syncopal events. Troponin was up to 0.044 now normalized. He is
noted to be positive for orthostatics, however is also hypertensive. Cardiology consulted due to bradycardia noted on telemetry, appears mostly nocturnal. Patient asymptomatic. He reports he recently decreased his aspirin from 325 mg daily to 81
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 Otherwise no changes in cardiac meds.
PMH:
CAD
Status post CABG x 2 in 1995 at OSH
status post RCA PCIx2 1999
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
Hypertension
Hyperlipidemia
SYDNEE, previously on CPAP, however recently noncompliant
Type 2 diabetes
Thyroid nodules
Pulmonary nodules
GERD
IBS
Daily alcohol use
Obesity
Former smoker
Past Medical History
Past Medical History: Other (in HPI)
Social History
Tobacco: Former Smoker
Alcohol: Daily (2 shots of vodka)
Living: Alone
Allergies / Home Medications
Allergy/AdvReac Type Severity Reaction Status Date / Time
iodine Allergy Unknown Unknown Verified 09/28/23 15:37
Sulfa (Sulfonamide Allergy Swelling Verified 09/28/23 15:37
Antibiotics)
�Medication �Instructions �Recorded �Confirmed �Type
aspirin 325 mg tablet 325 mg PO HS Blood clot 12/19/18 01/04/21 History
prevention/tx
chlordiazepoxide-methscopolamine 5 2.5 mg PO BID Mental Health/Anxiety 12/19/18 01/04/21 History
mg-2.5 mg capsule
metoprolol succinate 50 mg 75 mg PO HS Blood pressure 12/19/18 01/04/21 History
tablet,extended release 24 hr
niacin 500 mg tablet,extended 500 mg PO [facility] Supplement 12/19/18 01/04/21 History
release 24 hr (Niaspan)
silodosin 8 mg capsule (Rapaflo) 8 mg PO HS Urinary Issue 12/19/18 01/04/21 History
simvastatin 20 mg tablet 10 mg PO HS High cholesterol 12/19/18 01/04/21 History
calcium polycarbophil 625 mg 625 mg PO QPM Constipation 04/13/19 01/04/21 History
tablet (Fiber-Tabs)
canagliflozin 100 mg tablet 100 mg PO QPM Diabetes 04/13/19 01/04/21 History
(Invokana)
hydrochlorothiazide 25 mg tablet 25 mg PO DAILY Blood pressure 04/13/19 01/04/21 History
multivitamin with folic acid 400 1 tab PO DAILY Supplement 04/13/19 01/04/21 History
mcg tablet (Tab-A-Fabi)
omeprazole 20 mg capsule,delayed 20 mg PO BID Gastrointestinal issue 04/13/19 01/04/21 History
release
calcium carbonate (Tums Ultra) 400 mg PO [facility]HS Gastrointestinal 01/04/21 Rx
issue ##14
meclizine 12.5 mg tablet 12.5 mg PO TID PRN vertigo #15 01/07/21 Rx
tabs
Review of Systems
-
History Source: Patient
All other systems: Negative unless noted
Physical Exam
Vital Signs
Temp Pulse Resp BP Pulse Ox
98.4 F 57 18 177/68 99
10/01/23 07:35 10/01/23 07:35 10/01/23 07:35 10/01/23 07:35 10/01/23 07:35
Lab Results
10/01/23 06:21
10/01/23 06:21
Troponin I 0.012 ng/ml 10/01/23 01:21
Physical Exam
General: No Apparent Distress, Comfortable and Other (obese)
HEENT: Normocephalic, Anicteric and Moist Mucous Membranes
Respiratory: Clear and Non Labored Respirations
Cardiac: S1/S2 and Regular Rhythm
GI: Soft, Non Tender, Non Distended and Normal Bowel Sounds
Musculoskeletal: No Clubbing, No Cyanosis and Edema (trace of B/L LE)
Skin: Warm and Dry
Neuro: AO x 3
Impression / Plan
-
Primary Heavy Equipment Service Technician: Dr. Pablo
Assessment:
Presentation with weakness
Nocturnal bradycardia
PACs
NSVT
Elevated troponin, suspected nonischemic myocardial injury
Orthostasis
Admission to [facility] for fall/syncope 08/2023
CAD
Status post CABG x 2 in 1995 at OSH
status post RCA PCIx2 1999
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
Hypertension
Hyperlipidemia
SYDNEE, previously on CPAP, however recently noncompliant
Type 2 diabetes
Thyroid nodules
Pulmonary nodules
GERD
IBS
Daily alcohol use
Obesity
Former smoker
Infrarenal aortic ectasia
ECHO 09/16/23: EF 55 to 60%, no regional wall motion abnormalities noted, paradoxical septal motion consistent with post CABG status, MAC, trace MR, no significant change compared to prior
Plan:
-Patient presents with feelings of being 'woozy' and weak
-Etiology remains unclear at this time
-head CT and brain MRI negative for acute abnormalities
-He is noted to have positive orthostatics, although baseline blood pressures elevated
-Wearing compression stockings
-Currently on Toprol 75 mg nightly. His outpatient HCTZ is presently on hold. Norvasc was added per primary service today
-he is having frequent PACs on review of tele. had 1 11-beat run and 1 4-beat run of NSVT since admission. follow K/mag
-He is noted to have mostly nocturnal bradycardia, consistent with prior diagnosis of obstructive sleep apnea for which he is currently not being treated by his choice. He reports he 'does not think it helped' him. encouraged compliance
-Recent echo with results as above. Will not repeat at this time
-Will attempt to obtain records from recent admission to [facility]
-check TSH
-trop peaked at 0.044 and normalized. no CP. consider for ischemic evaluation. Last stress test from 2020 with large size moderate intensity fixed inferior defect consistent with infarction and no evidence of acute ischemia with preserved EF
Data Reviewed
-
EKG: Tracing Personally Visualized and interpreted
Radiology: Report Reviewed by me
CT Scan: Report Reviewed by me
MRI: Report Reviewed by me
Medical Tests (Nuc Med, Echo etc): Report Reviewed by me
Labs: Labs Reviewed by me
Old Records: Requested and Reviewed
[2023-10-01] MEDS: ZESTRIL 5 MG PO (10:41)
[2023-10-01 11:21] VITALS: BP 169/70
[2023-10-01 11:38] LABS: TSH Reflex To Free T4 0.85 uIU/ml (0.47-4.68)
[2023-10-01 11:44] LABS: Glucose - Point of Care 201 mg/dl (70-99)
[2023-10-01] MEDS: NOVOLOG FLEXPEN-MODERATE RESISTANCE 3 UNITS SC (12:07)
--- NOTE | 2023-10-01 12:44 | CM ---
Patient is for discharge to home today, no needs.
Plan; Home no needs.
--- NOTE | 2023-10-01 13:41 | W.DCSUMMARY ---
Documented by User: Richie Decker MD, Resident 10/01/23 15:46
Discharge Summary
Discharge Data
Date of Admission: 09/28/23
Date of Discharge: 10/01/23
-
Pending Results: Yes
Additional Pending Results:
Blood cultures
Hospital Course
Discharging Physician : Una Le MD, Richie Decker MD
Disposition : Home
Primary care physician : Caroline Hastings MD
Principal Discharge diagnosis : Orthostatic hypotension
Chronic Discharge diagnosis : Vertigo, alcohol use disorder, Type 2 diabetes mellitus, Essential hypertension, IBS, GERD, anxiety, coronary artery disease, history of BPH.
Hospital Course : 78-year-old male with past medical history of vertigo, essential hypertension, CAD status post CABG, hyperlipidemia, diabetes who presented to ED on 09/28/23 with dizziness, loss of balance, dry heaving and some dyspnea for
several days prior to presentation. He also reported fall/syncopal episode approximately 3 weeks prior to presentation.
While in the ED, patient was evaluated with a noncontrast CT scan of the head, chest x-ray and EKG. His labs showed WBC count 17.8 with neutrophilic predominance 89.1, sodium 134, troponin I max 0.044. His CT scan showed no acute intracranial
abnormalities however there was an elevation of troponin I and his labs although patient was chest pain-free. His chest x-ray showed trace pleural effusion with consolidation and his EKG was abnormal right bundle branch block and left anterior
fascicular block which is likely chronic. There was concern for possible pneumonia due to his leukocytosis although patient was not febrile. Patient was given 1 L of IV fluid and was started on antibiotics for presumed community-acquired pneumonia
and was admitted for further evaluation and management.
While in the hospital, patient was further evaluated with chest CT, Bilateral lower extremity vascular ultrasound and brain MRI which we are all unremarkable for dizziness; reports shown below. Patient subsequently developed multiple PACs on
telemetry, ectopic atrial bradycardia with occasional PVCs on subsequent ECG and orthostatic hypotension on testing. Patient's HCTZ and Toprol were held and cardiology was consulted for further evaluation.
Patient's symptoms improved with holding HCTZ and Toprol however his blood pressure increased. Patient was started on 2.5 mg Norvasc and 2.5 mg lisinopril with improvement of his blood pressure. Patient has been assessed and hemodynamically stable
for discharge with instructions to follow-up with the primary care physician less than 1 week. Patient has also been set up with a cardiac technologist with instructions to follow-up with cardiology outpatient. Patient is also instructed to follow-up
with pulmonology for sleep study and treatment of SYDNEE.
Important imaging findings :
Head CT 09/28/2023
No acute intracranial abnormality noted.
CT chest 09/29/2023
1).There is a 1 cm pulmonary nodule in the posterior aspect of the right lung apex which had measured only 7 mm on the 10/22/2017 examination. The slow interval growth of this lesion suggests probable benign etiology, however, if clinically indicated,
this could be followed with PET scan for further evaluation.
2).There is a 2.8 cm spiculated area of pleural parenchymal density at the medial aspect of the right lung apex, stable dating back to 10/22/2017 indicating that it is benign.
3). There is a 1.5 mm nodular density at the posterior aspect of the left lung apex, stable when compared with the 10/22/2017 examination indicating that it is benign.
4). Atherosclerosis
5). Mild emphysematous changes
6). Enlarged substernal thyroid
7). Postoperative changes with wire sternal sutures
Vascular ultrasound 09/30/2023
RIGHT: Calcified plaque is identified in the common carotid artery and proximal internal carotid artery. Carotid velocity measurements are consistent with less than 50% stenosis. Vertebral artery flow is antegrade.
LEFT: Calcified plaque is identified in the common carotid artery and proximal internal carotid artery. Carotid velocity measurements are consistent with less than 50% stenosis. Vertebral artery flow is antegrade.
Multiple thyroid nodules are identified as demonstrated on dedicated thyroid ultrasound in February 2023.
Brain MRI 09/30/2023
No acute intracranial abnormality noted. Specifically, no acute infarct.
No evidence to suggest vestibular cochlear schwannoma.
Incidental note is made of a type II anterior inferior cerebellar artery vascular loop on the right and a type III anterior inferior cerebellar artery vascular loop on the left.
Relatively centrally situated in the anterior left temporal lobe, there is a small somewhat linear focus of low signal intensity susceptibility noted, consistent with hemosiderin, likely reflecting old/remote hemorrhagic insult.
Small, 9 mm meningioma in the inferolateral right frontal region.
Discharge Plan
-
Patient Disposition: Home with Home Care
Discharge Diagnosis/Procedures: Orthostatic hypotension, vertigo, alcohol use disorder, Type 2 diabetes mellitus, Essential hypertension, IBS, GERD, anxiety, coronary artery disease, history of BPH.
Condition: Good
Diet: Regular and Diabetic, Carb Controlled
Activity: No restrictions
Driving Restrictions: As prior to admission
Bathing Restrictions: None
Activity Restrictions/Additional Instructions:
7 day cardiac technologist
Referrals:
Helio Childers MD [Active] - in two to three weeks
Pinky Rose PA-C [Specified Professional Personl] - 10/15/23 9:20 am (You have a cardiology follow up appointment at the [place] office with Dr. Pablo's physician conservation assistant, Pinky. Please call with questions. )
Caroline Hastings MD [Family Provider] - in less than 1 week
Lenny Alexandre MD [Active] - in two to three weeks
Additional Discharge Medication Instructions: Take amlodipine 2.5 mg tablet by mouth once daily
Take lisinopril 5 mg tablet by mouth once daily
Do not take metoprolol until you see your PCP
Stop hydrochlorothiazide
Prescriptions:
New
amlodipine 2.5 mg Tablet
2.5 mg PO DAILY Qty: 30 0RF
Rx Instructions:
Take 1 tablet by mouth once daily
lisinopril 5 mg Tablet
5 mg PO DAILY Qty: 30 0RF
Continued
aspirin 325 MG tablet
325 mg PO HS
niacin [Niaspan Extended-Release] 500 MG tablet extended release 24 hr
500 mg PO AMHS
simvastatin 20 MG tablet
10 mg PO HS
chlordiazepoxide-methscopolamn 1 EACH capsule
2.5 mg PO BID
silodosin [Rapaflo] 8 MG capsule
8 mg PO HS
calcium polycarbophil [Fiber-Tabs] 625 MG tablet
625 mg PO QPM
omeprazole 20 MG capsule,delayed release(DR/EC)
20 mg PO BID
multivitamin with folic acid [Tab-A-Fabi] 1 TABLET tablet
1 tab PO DAILY
Invokana 100 MG tablet
100 mg PO QPM
calcium carbonate [Tums Ultra] 400 MG tablet,chewable
400 mg PO AMHS Qty: 14 0RF
meclizine 12.5 MG tablet
12.5 mg PO TID PRN (Reason: vertigo ) Qty: 15 0RF
Held
metoprolol succinate 50 MG tablet extended release 24 hr
75 mg PO HS
Hold Instructions: Resume on 10/15/23. Hold until seen by primary care physician
Discontinued
hydrochlorothiazide 25 MG tablet
25 mg PO DAILY
Discharge Orders:
Discharge Patient (As Directed); Ordered 10/01/23
Ordered By: Richie Decker
Discharge Date and Time
Print Language: SENEGALESE

Documented by User: Una Le MD 10/01/23 16:22
Discharge Summary
Discharge Data
Date of Admission: 09/28/23
Date of Discharge: 10/01/23
Discharge Plan
-
Patient Disposition: Home with Home Care
Discharge Diagnosis/Procedures: Orthostatic hypotension, vertigo, alcohol use disorder, Type 2 diabetes mellitus, Essential hypertension, IBS, GERD, anxiety, coronary artery disease, history of BPH.
Condition: Good
Diet: Regular and Diabetic, Carb Controlled
Activity: No restrictions
Driving Restrictions: As prior to admission
Bathing Restrictions: None
Activity Restrictions/Additional Instructions:
7 day cardiac technologist
Referrals:
Helio Childers MD [Active] - in two to three weeks
Pinky Rose PA-C [Specified Professional Personl] - 10/15/23 9:20 am (You have a cardiology follow up appointment at the [place] office with Dr. Pablo's physician conservation assistant, Pinky. Please call with questions. )
Caroline Hastings MD [Family Provider] - in less than 1 week
Lenny Alexandre MD [Active] - in two to three weeks
Additional Discharge Medication Instructions: Take amlodipine 2.5 mg tablet by mouth once daily
Take lisinopril 5 mg tablet by mouth once daily
Do not take metoprolol until you see your PCP
Stop hydrochlorothiazide
Prescriptions:
New
amlodipine 2.5 mg Tablet
2.5 mg PO DAILY Qty: 30 0RF
Rx Instructions:
Take 1 tablet by mouth once daily
lisinopril 5 mg Tablet
5 mg PO DAILY Qty: 30 0RF
Continued
aspirin 325 MG tablet
325 mg PO HS
niacin [Niaspan Extended-Release] 500 MG tablet extended release 24 hr
500 mg PO AMHS
simvastatin 20 MG tablet
10 mg PO HS
chlordiazepoxide-methscopolamn 1 EACH capsule
2.5 mg PO BID
silodosin [Rapaflo] 8 MG capsule
8 mg PO HS
calcium polycarbophil [Fiber-Tabs] 625 MG tablet
625 mg PO QPM
omeprazole 20 MG capsule,delayed release(DR/EC)
20 mg PO BID
multivitamin with folic acid [Tab-A-Fabi] 1 TABLET tablet
1 tab PO DAILY
Invokana 100 MG tablet
100 mg PO QPM
calcium carbonate [Tums Ultra] 400 MG tablet,chewable
400 mg PO AMHS Qty: 14 0RF
meclizine 12.5 MG tablet
12.5 mg PO TID PRN (Reason: vertigo ) Qty: 15 0RF
Held
metoprolol succinate 50 MG tablet extended release 24 hr
75 mg PO HS
Hold Instructions: Resume on 10/15/23. Hold until seen by primary care physician
Discontinued
hydrochlorothiazide 25 MG tablet
25 mg PO DAILY
Discharge Orders:
Discharge Patient (As Directed); Ordered 10/01/23
Ordered By: Richie Decker
Discharge Date and Time
Print Language: SENEGALESE
[2023-10-01 14:07] VITALS: BP 103/68; BP 180/76; PULSE 67; O2SAT 100
[2023-10-01 15:25] VITALS: BP 144/63
[2023-10-01 15:42] LABS: Glucose - Point of Care 180 mg/dl (70-99)
== END 2023-10-01 16:52 | disposition home or self-care (01) | DRG 309 ==
LOC: 4 WEST ACU 21:05
PROVIDERS: Hospitalist; Nurse Practitioner Family; Student in an Organized Health Care Education/Training Program; ADMITTING PHYSICIAN Internal Medicine; ATTENDING PHYSICIAN Hospitalist; EMERGENCY PHYSICIAN Student in an Organized Health Care Education/Training Program; FAMILY PHYSICIAN Emergency Medicine; OTHER PHYSICIAN Internal Medicine Cardiovascular Disease
DX: I49.8 Other specified cardiac arrhythmias (principal); B37.0 Candidal stomatitis; E87.1 Hypo-osmolality and hyponatremia; J90 Pleural effusion, not elsewhere classified; I5A Non-ischemic myocardial injury (non-traumatic); I95.1 Orthostatic hypotension; F10.90 Alcohol use, unspecified, uncomplicated; I42.8 Other cardiomyopathies; E87.6 Hypokalemia; I47.29 Other ventricular tachycardia; Z11.52 Encounter for screening for COVID-19
CPT/HCPCS: 70450; 70551; 71046; 71250; 80048; 80053; 81003; 82077; 82607; 82746; 82962; 83036; 83605; 83735; 84100; 84145; 84443; 84484; 85025; 87040; 87811; 93005; 93880; 96365; 97116; 97161; 97166; 99285

== ENCOUNTER → 2023-11-21 07:25 | Outpatient (REF) | payer MEDICARE, OTHER, SELFPAY | LOC: DHCBC/DCA 07:25 | PROVIDERS: ATTENDING PHYSICIAN Physician Assistant Medical; FAMILY PHYSICIAN Emergency Medicine | DX: I25.118 Atherosclerotic heart disease of native coronary artery with other forms of angina pectoris (principal); Z95.1 Presence of aortocoronary bypass graft | CPT/HCPCS: 78452; 93017; A9500; J2785 ==

== ENCOUNTER → 2023-12-26 18:57 | Outpatient (REF) | payer MEDICARE, OTHER, SELFPAY | LOC: PAVMRI 18:57 | PROVIDERS: ATTENDING PHYSICIAN Physical Medicine & Rehabilitation; FAMILY PHYSICIAN Emergency Medicine | DX: M54.12 Radiculopathy, cervical region (principal) | CPT/HCPCS: 72141 ==

== ENCOUNTER → 2024-01-24 12:33 | Outpatient (REF) | payer MEDICARE, OTHER, SELFPAY | LOC: EMG 12:33 | PROVIDERS: ATTENDING PHYSICIAN Orthopaedic Surgery; FAMILY PHYSICIAN Emergency Medicine | DX: R20.1 Hypoesthesia of skin (principal); R20.0 Anesthesia of skin | CPT/HCPCS: 95886; 95911 ==

== ENCOUNTER → 2024-02-10 12:10 | Outpatient (REF) | payer MEDICARE, OTHER, SELFPAY | LOC: HWRAD 12:10 | PROVIDERS: ATTENDING PHYSICIAN Emergency Medicine | DX: R91.1 Solitary pulmonary nodule (principal); R91.8 Other nonspecific abnormal finding of lung field | CPT/HCPCS: 71250 ==

== ENCOUNTER → 2024-03-04 13:23 | Outpatient (REF) | payer MEDICARE, OTHER, SELFPAY | LOC: RADI 13:23 | PROVIDERS: ATTENDING PHYSICIAN Surgery; FAMILY PHYSICIAN Emergency Medicine | DX: E04.2 Nontoxic multinodular goiter (principal) | CPT/HCPCS: 88173; 10005; 10006 ==

== ENCOUNTER 2024-04-07 06:14 | Day surgery (SDC) | payer MEDICARE, OTHER, SELFPAY ==
[2024-04-03 13:02] VITALS: BMI 32.8
--- NOTE | 2024-04-03 16:07 | PTCARENOTE ---
Abn ECG done 04/03, reviewed by Dr Maurice, no additional intervention.
[2024-04-07] VITALS (10 sets, daily range): BP systolic 121–173; BP diastolic 51–76; BMI 32.8
[2024-04-07 11:55] LABS: Glucose - Point of Care 117 mg/dl (70-99)
[2024-04-07] MEDS: TYLENOL 1000 MG PO (11:58)
[2024-04-07] MEDS: NEURONTIN 300 MG PO (11:58)
[2024-04-07] MEDS: HEPARIN 5000 UNITS SC (11:59)
[2024-04-07] MEDS: NORMOSOL-R/PLASMALYTE-A 1000 IV (11:59)
--- NOTE | 2024-04-07 14:30 | OR.RPT ---
Operative Report
Operative Report
DATE OF OPERATION: April 07, 2024
PREOPERATIVE DIAGNOSIS: Right Substernal Goiter - E040
POSTOPERATIVE DIAGNOSIS: Same
SURGEON: Raymond Ortiz M.D.
OPERATION: Resection of the Right Substernal Multinodular Goiter - 83758
ANESTHESIA: GET
ESTIMATED BLOOD LOSS: 30 cc
DRAINS: None
SPECIMEN: right total thyroid lobe and isthmus
FINDINGS: Hard Right Substernal Goiter
COMPLICATIONS:� None
PROCEDURE:
The patient was taken to the operating room and placed in the usual supine position. After adequate general endotracheal anesthesia was established, the patient�s neck was extended, prepped, and draped in the typical sterile fashion. A 6 cm
transcervical incision was made two fingerbreadths above the sternal notch. The skin incision was made with the #15 blade, which was taken through the skin into the subcutaneous tissue. The underlying platysma muscle was divided, and subplatysmal
flaps were created superiorly to the thyroid cartilage and inferiorly to the sternal notch. Strap muscles were identified and at the midline.
Attention was turned to the patient�s right thyroid lobe. The right thyroid lobe was mobilized medially. During this process, the right middle thyroid vein and inferior thyroid artery were dissected and ligated with Ligasure. There was a hard,
almost bone like, substernal extension, which was not able to delivered out of the mediastinum. Therefore, the right strap muscle was divided, then the substernal extension was delivered out of the mediastinum through the cervical incision. Next,
the right superior pole was taken down by dissecting and transecting the superior pole vessels with a Ligasure. The rest of the right thyroid lobe was mobilized medially. During this process, the right recurrent laryngeal nerve was identified and
preserved throughout its entire course. The right superior parathyroid gland was identified and preserved. The right thyroid lobe with isthmus was resected off the trachea and sent to the pathology department.
After obtaining adequate hemostasis, the strap muscle was approximated with #3-0 Vicryl in a running fashion, and platysma muscles were reapproximated with #3-0 Vicryl in an interrupted fashion, and the skin was approximated with #4-0 Monocryl in a
running subcuticular fashion. Steri-strips and sterile dressings were placed. The patient tolerated the procedure well. The final instrument, needle, and sponge counts were correct.
[2024-04-07 14:42] LABS: Glucose - Point of Care 135 mg/dl (70-99)
--- NOTE | 2024-04-07 15:27 | SUR.PHASEI ---
very sleepy, tactile stimuli to arouse, answers questions with one word answers. Dentures in. Denies using CPAP at home.
== END 2024-04-07 17:18 | disposition home or self-care (01) ==
LOC: SDS 06:14
PROVIDERS: ATTENDING PHYSICIAN Surgery; FAMILY PHYSICIAN Emergency Medicine
DX: D34 Benign neoplasm of thyroid gland (principal); E04.0 Nontoxic diffuse goiter
CPT/HCPCS: 60271; 88305; 88307; 88311; 82962; C1776; C9250

== ENCOUNTER 2024-07-29 06:20 | Day surgery (SDC) | payer MEDICARE, OTHER, SELFPAY ==
[2024-07-16 12:37] VITALS: BMI 34.2
[2024-07-23 14:45] VITALS: BMI 34.2
[2024-07-29] VITALS (13 sets, daily range): BP systolic 139–165; BP diastolic 58–73; BMI 34.2
[2024-07-29 08:26] LABS: Glucose - Point of Care 135 mg/dl (70-99)
[2024-07-29] MEDS: NORMOSOL-R/PLASMALYTE-A 1000 IV ×2 (08:27→12:10)
[2024-07-29] MEDS: METHOCARBAMOL 1500 MG PO (08:27)
[2024-07-29] MEDS: MOBIC 15 MG PO (08:27)
[2024-07-29] MEDS: TYLENOL 1000 MG PO (08:27)
[2024-07-29] MEDS: LYRICA 150 MG PO (08:27)
== END 2024-07-29 13:50 | disposition home or self-care (01) ==
LOC: SDS 06:20
PROVIDERS: ATTENDING PHYSICIAN Orthopaedic Surgery Orthopaedic Surgery of the Spine
DX: M50.222 Other cervical disc displacement at C5-C6 level (principal); M48.00 Spinal stenosis, site unspecified; G95.9 Disease of spinal cord, unspecified
CPT/HCPCS: 22551; 22853; 20930; 72020; 82962; C1713

== ENCOUNTER 2024-08-29 16:31 | Emergency (ER) | payer MEDICARE, OTHER, SELFPAY ==
[2024-08-29 16:43] VITALS: BP 194/91
[2024-08-29 17:47] VITALS: BMI 32.4
--- NOTE | 2024-08-29 18:38 | ED.GENMED ---
History of Present Illness
General
Chief Complaint: Cardiac Symptoms
Source: patient
Exam Limitations: none
Time Seen by Provider: 08/29/24 18:00
Nursing documentation reviewed up to this point in time: agreed with
History of Present Illness
History of Present Illness:
The patient is an 79-year-old man with a past medical history of coronary artery disease who reports that he has been coughing and feeling slightly short of breath for a week. His , who is at the bedside, reports she has had similar symptoms
herself and was given an inhaler as well as an antibiotic. The patient reports he has had no fever. He went to urgent care earlier today and was told that he should come get checked out by the ED since his EKG is not normal he was found to be
hypertensive. Patient reports he had a chest x-ray done in urgent care that was read as normal. Patient reports he has had no recent or current chest pain. He denies leg pain or leg swelling. He reports he is a former smoker but has not smoked
in about 30 years. Patient reports his cough is productive of mucus
Past History
Past History
ED Past Medical History: CAD, GERD, HTN, Hypercholesterolemia, NIDDM and Other (Cellulitis)
ED Past Surgical History: Appendectomy, Cardiac (CABG) and Cholecystectomy
Social History
Tobacco: Former smoker
Alcohol: Daily
Drug: None
Personal:
Living: alone
Employment: Retired
Family History
Family History: Other (Noncontributory)
Review of Systems
Review of Systems
Allergies reviewed?: Yes
All Other Systems: ROS reviewed and negative except as documented in HPI and ROS
Constitutional: Reports no symptoms
EENT: Reports no symptoms
Respiratory: Reports cough and trouble breathing
Cardiac: Reports no symptoms
ABD/GI: Reports no symptoms
: Reports no symptoms
Musculoskeletal: Reports no symptoms
Skin: Reports no symptoms
Neurological: Reports no symptoms
Endocrine: Reports no symptoms
Hematologic/Lymphatic: Reports no symptoms
Psychiatric: Reports no symptoms
Phy Exam
Physical Exam
Physical Exam:
Physical Exam
General: no apparent distress, not acutely ill, patient appears well and nontoxic. He is conversational
Neck: supple. no meningeal signs. normal psoterior pharynx
Heart: s1/s2 regular rate and rhythm,
Lungs: Speak in full sentences without any sign of respiratory distress. Questionable faint wheeze.
Abdomen: normal bowel sounds. not tender. no CVAT
Neuro: alert and oriented. no focal neurological deficits
Skin: no rash
Psychiatric: well kept. interactive and cooperative
Extremities: no edema. no calf tenderness. negative homans. good distal pulses
Course
Orders/Labs/Results
Orders:
Orders
08/29/24 16:31
Electrocardiogram (*1) Urgent
Reason for Study: Abnormal EKG
08/29/24 16:32
EKG- Treatment ONCE
08/29/24 18:34
Ipratropium/Albuterol Sulfate [Duoneb] 3 ml INH R NOW ONE
08/29/24 18:35
Doxycycline [Vibramycin] 100 mg PO NOW STA
08/29/24 18:53
Complete Blood Count/With Diff Urgent
Comprehensive Metabolic Panel Urgent
NT-proBNP Urgent
Troponin I Urgent
08/29/24 20:49
Troponin I Urgent
Abnormal Lab Results
08/29/24
18:53
MCH 31.7 H pg
(27.0-31.0)
Absolute Monos (auto) 0.7 H 10^3/uL
(0.1-0.6)
Monocytes % 10.6 H %
(1.7-9.3)
Creatinine 0.6 L mg/dL
(0.7-1.3)
Glucose 117 H mg/dl
(70-99)
08/29/24 18:53
08/29/24 18:53
Vital Signs
Initial and Last Documented VS:
Initial Vital Signs
Temp Pulse Resp BP Pulse Ox
97.7 F 89 20 194/91 98
08/29/24 16:43 08/29/24 16:43 08/29/24 16:43 08/29/24 16:43 08/29/24 16:43
Last Documented Vital Signs
Temp Pulse Resp BP Pulse Ox
97.7 F 72 12 151/57 99
08/29/24 16:43 08/29/24 21:30 08/29/24 21:30 08/29/24 21:00 08/29/24 21:30
MDM/Problems Addressed
Differential Diagnosis Includes:
Pneumonia, CHF, acute bronchitis
MDM/Problems Addressed:
Patient presents with acute shortness of breath and cough
Chronic conditions affecting care: CAD
Acute Exacerbation and/or Progression of Chronic Illness:
Patient may have acute exacerbation of ACS, however, he looks well and denies chest pain
*Pulse Oximetry
Patient hypoxic: no
Comment: 98% on room air
*Linux Systems Engineer Interpretation
Rate: normal
Interpretation: normal
Rhythm: sinus
*Critical Care Note
Total Time (30-74mins, 75-104mins- exclusive of procedures): Not Applicable
Data Reviewed
Review of Other/Old Records Reveals: Testing (Cardiac echo 2023 shows an EF of 55%)
Source: patient and spouse
Update Note
Update Note:
Patient remains well and comfortable appearing. I did not proceed with a chest x-ray given that patient does had a chest x-ray at urgent care that he tells me was read as normal. Given patient has had an ongoing cough for at least a week, has a
history of heart disease and is a former smoker, decision made to give an antibiotic for productive cough. Patient's second troponin was also in the normal range and patient has no chest pain at all. Therefore, it is unlikely he has ACS.
ED Attending Note
-
Portions of this chart may have been created with voice recognition software.� Occasional wrong word or��sound alike� substitutions may have occurred due to the inherent limitations of voice recognition software.
Discharge Plan
Departure
Patient Disposition: Home (Routine Discharge)
Date of Disposition: 08/29/24
Time of Disposition: 21:22
Patient with high blood pressure during this ER visit?: Yes
Condition: Good
Covid-19: Not Applicable
Discharge Problem:
Cough
Instructions: Cough, runny nose, and colds, BLOOD PRESSURE
Prescriptions:
New
doxycycline hyclate 100 mg capsule
100 mg PO BID Qty: 13 0RF
albuterol sulfate 90 mcg/actuation aerosol powdr breath activated
2 inh inhalation Q6H PRN (Reason: shortness of breath or wheezing) Qty: 1 0RF
No Action
multivitamin with folic acid [Tab-A-Fabi] 1 TABLET tablet
1 tab PO DAILY
Invokana 100 MG tablet
300 mg PO QPM
amlodipine 2.5 mg Tablet
2.5 mg PO DAILY Qty: 30 0RF
Rx Instructions:
Take 1 tablet by mouth once daily
buspirone 5 mg Tablet
5 mg PO BID
famotidine 40 mg Tablet
40 mg PO HS
pantoprazole 40 mg Tablet,Delayed Release (Dr/Ec)
40 mg PO HS
finasteride 5 mg Tablet
5 mg PO DAILY
lisinopril 5 mg tablet
5 mg PO HS
niacin [Niaspan Extended-Release] 500 mg Tablet Extended Release 24 Hr
500 mg PO BID
Benefiber (wheat dextrin) 1 gram Tablet
1 g PO DAILY
aspirin 81 mg Capsule
81 mg PO DAILY
simvastatin 10 mg Tablet
10 mg PO HS
Referrals:
Caroline Hastings MD [Family Provider, Internal Medicine]
Interventions
Interventions:
*Risk Screen - Suicide Last Done: 08/29/24 16:43
*General Assessment Last Done: 08/29/24 16:43
*Neglect/Abuse Screening Last Done: 08/29/24 21:34
*ED- Fall Risk Assessment Last Done: 08/29/24 21:34
*ED COVID-19 Vaccine History Last Done: 08/29/24 21:34
*Nursing Disposition Last Done: 08/29/24 21:34
ED- Pulmonary Assessment Last Done: 08/29/24 17:49
ED- Cardiac Assessment Last Done: 08/29/24 17:49
Discharge Date and Time
Print Language: SERBIAN
[2024-08-29] MEDS: VIBRAMYCIN 100 MG PO (18:55)
[2024-08-29] MEDS: DUONEB 3 ML INH (18:55)
[2024-08-29 18:59] LABS: % Basophils 0.3 % (0-2); % Eosinophils 2.9 % (0-6); % Immature Granulocytes 0.3 % (0-0.5); % Lymphocytes 24.4 % (20.5-51.1); % Monocytes 10.6 % (1.7-9.3); % Neutrophils 61.5 % (42.2-75.2); Absolute Eosinophils 0.2 10^3/uL (0-0.7); Absolute Lymphocytes 1.7 10^3/uL (1.2-3.4); Absolute Monocytes 0.7 10^3/uL (0.1-0.6); Absolute Neutrophils 4.3 10^3/uL (1.4-6.5); Hematocrit 43.7 % (39.0-52.0); Hemoglobin 15.7 g/dL (13.0-18.0); Mean Corp Hgb Conc. 35.9 g/dL (33.0-37.0); Mean Corpuscular Hgb 31.7 pg (27.0-31.0); Mean Corpuscular Volume 88.1 fL (80.0-94.0); Mean Platelet Volume 8.5 fL (7.4-10.4); Nucleated Red Blood Cells % 0 % (-); Platelet Count 164 10^3/uL (130-400); Red Blood Cell Count 4.96 10^6/uL (4.70-6.10); Red Cell Dist. Width 12.4 % (11.5-14.5)
[2024-08-29 19:00] VITALS: BP 171/72
[2024-08-29 19:22] LABS: ALT (SGPT) 22 U/L (0-50); AST (SGOT) 23 U/L (17-59); Albumin 4.1 g/dl (3.5-5.0); Alkaline Phosphatase 89 U/L (38-126); Blood Urea Nitrogen 12 mg/dl (9-20); Calcium 9.5 mg/dl (8.4-10.2); Carbon Dioxide 26 mmol/L (22-30); Chloride 103 mmol/L (98-107); Estimated Creatinine Clearance 112 ml/min; Glucose 117 mg/dl (70-99); Potassium 3.9 mmol/L (3.5-5.1); Sodium 136 mmol/L (135-145); Total Bilirubin 0.9 mg/dl (0.2-1.3); Total Protein 6.6 g/dl (6.3-8.2); eGFR > 60.00
[2024-08-29 19:26] VITALS: BP 173/65
[2024-08-29 19:35] LABS: NT-proBNP 162 pg/ml; Troponin I 0.029 ng/ml
[2024-08-29 20:00] VITALS: BP 171/63
[2024-08-29 21:00] VITALS: BP 151/57
[2024-08-29 21:22] LABS: Troponin I 0.028 ng/ml
== END 2024-08-29 21:48 | disposition home or self-care (01) ==
LOC: EMR 16:31
PROVIDERS: EMERGENCY PHYSICIAN Emergency Medicine; FAMILY PHYSICIAN Emergency Medicine
DX: R05.9 Cough, unspecified (principal); I25.10 Atherosclerotic heart disease of native coronary artery without angina pectoris; E11.9 Type 2 diabetes mellitus without complications; E78.00 Pure hypercholesterolemia, unspecified; I10 Essential (primary) hypertension; Z87.891 Personal history of nicotine dependence; Z95.1 Presence of aortocoronary bypass graft; Z90.49 Acquired absence of other specified parts of digestive tract
CPT/HCPCS: 99284; 94640; 80053; 83880; 84484; 85025; 93005

== ENCOUNTER → 2024-09-02 15:00 | Outpatient (REF) | payer MEDICARE, OTHER, SELFPAY | LOC: REG 15:00 | PROVIDERS: ATTENDING PHYSICIAN Emergency Medicine | DX: R06.02 Shortness of breath (principal) | CPT/HCPCS: 71046 ==

== ENCOUNTER → 2024-09-04 08:10 | Outpatient (REF) | payer MEDICARE, OTHER, SELFPAY | LOC: PAVMRI 08:10 | PROVIDERS: ATTENDING PHYSICIAN Psychiatry & Neurology Neurology; FAMILY PHYSICIAN Emergency Medicine; REFERRING PHYSICIAN Internal Medicine Critical Care Medicine | DX: D32.9 Benign neoplasm of meninges, unspecified (principal); R91.8 Other nonspecific abnormal finding of lung field | CPT/HCPCS: 70551; 71250 ==

== ENCOUNTER 2024-09-15 06:17 | Day surgery (SDC) | payer MEDICARE, OTHER, SELFPAY ==
[2024-09-15] VITALS (8 sets, daily range): BP systolic 134–162; BP diastolic 57–72; BMI 33.4
[2024-09-15] MEDS: TYLENOL 1000 MG PO (08:21)
[2024-09-15 08:48] LABS: Glucose - Point of Care 164 mg/dl (70-99)
[2024-09-15] MEDS: NORMOSOL-R/PLASMALYTE-A 1000 IV (08:50)
[2024-09-15 10:14] LABS: Glucose - Point of Care 150 mg/dl (70-99)
== END 2024-09-15 11:50 | disposition home or self-care (01) ==
LOC: SDS 06:17
PROVIDERS: ATTENDING PHYSICIAN Orthopaedic Surgery
DX: G56.21 Lesion of ulnar nerve, right upper limb (principal); G56.01 Carpal tunnel syndrome, right upper limb
CPT/HCPCS: 64718; 82962

== ENCOUNTER 2024-09-28 06:13 | Day surgery (SDC) | payer MEDICARE, OTHER, SELFPAY ==
[2024-09-21 09:14] LABS: INR 1.09; PT 14.4 Sec (11.4-14.6)
[2024-09-21 09:15] LABS: APTT 33.0 Sec (23.4-35.0)
[2024-09-21 13:58] VITALS: BMI 34.9
[2024-09-28] VITALS (7 sets, daily range): BP systolic 125–160; BP diastolic 55–75; BMI 34.9
[2024-09-28] MEDS: VENTOLIN NEBULES 2.5 MG INH (06:57)
[2024-09-28] MEDS: NSS 500 IV (07:09)
[2024-09-28 09:46] LABS: Glucose - Point of Care 139 mg/dl (70-99)
[2024-09-28 10:22] LABS: Glucose - Point of Care 147 mg/dl (70-99)
== END 2024-09-28 11:04 | disposition home or self-care (01) ==
LOC: SDS 06:13
PROVIDERS: ATTENDING PHYSICIAN Internal Medicine Critical Care Medicine; FAMILY PHYSICIAN Emergency Medicine; OTHER PHYSICIAN Internal Medicine Cardiovascular Disease
DX: R91.8 Other nonspecific abnormal finding of lung field (principal); R59.0 Localized enlarged lymph nodes
CPT/HCPCS: 31629; 31628; 31624; 31623; 31627; 31654; 36415; 71045; 76000; 82962; 85610; 85730; 87070; 87102; 87116; 87205; 88112; 88173; 88305; 88341; 88342; 94640; C1887

== ENCOUNTER → 2024-12-03 07:59 | Outpatient (REF) | payer MEDICARE, OTHER, SELFPAY | LOC: HWRAD 07:59 | PROVIDERS: ATTENDING PHYSICIAN Internal Medicine Critical Care Medicine; FAMILY PHYSICIAN Family Medicine | DX: J44.1 Chronic obstructive pulmonary disease with (acute) exacerbation (principal) | CPT/HCPCS: 71046 ==

== ENCOUNTER → 2024-12-18 14:09 | Outpatient (REF) | payer MEDICARE, OTHER, SELFPAY | LOC: HWRAD 14:09 | PROVIDERS: ATTENDING PHYSICIAN Internal Medicine Critical Care Medicine; FAMILY PHYSICIAN Family Medicine | DX: R91.8 Other nonspecific abnormal finding of lung field (principal) | CPT/HCPCS: 71250 ==

== ENCOUNTER → 2024-12-21 09:05 | Outpatient (REF) | payer MEDICARE, OTHER, SELFPAY ==
[2024-12-21] VITALS (14 sets, daily range): BP systolic 69–147; BP diastolic 54–71
[2024-12-21 09:38] LABS: Glucose - Point of Care 161 mg/dl (70-99)
[2024-12-21 10:05] LABS: INR 1.05; PT 14.0 Sec (11.4-14.6)
[2024-12-21 10:06] LABS: Hematocrit 42.6 % (39.0-52.0); Hemoglobin 14.7 g/dL (13.0-18.0); Mean Corp Hgb Conc. 34.5 g/dL (33.0-37.0); Mean Corpuscular Volume 90.1 fL (80.0-94.0); Platelet Count 135 10^3/uL (130-400); Red Cell Dist. Width 13.2 % (11.5-14.5)
== END ==
LOC: RADI 09:05
PROVIDERS: Physician Assistant; ATTENDING PHYSICIAN Internal Medicine Critical Care Medicine; FAMILY PHYSICIAN Family Medicine
DX: C34.11 Malignant neoplasm of upper lobe, right bronchus or lung (principal)
CPT/HCPCS: 32408; 71045; 81459; 82962; 85027; 85610; 88305; 88333; 99152

== ENCOUNTER 2025-02-26 09:58 | Inpatient (IN) | payer MEDICARE, OTHER, SELFPAY ==
[2025-02-08 12:09] LABS: Hematocrit 44.2 % (39.0-52.0); Hemoglobin 15.7 g/dL (13.0-18.0); Mean Corp Hgb Conc. 35.5 g/dL (33.0-37.0); Mean Corpuscular Volume 90.6 fL (80.0-94.0); Platelet Count 170 10^3/uL (130-400); Red Cell Dist. Width 13.2 % (11.5-14.5)
[2025-02-08 12:12] LABS: INR 1.16; PT 15.1 Sec (11.4-14.6)
[2025-02-08 12:13] LABS: APTT 37.3 Sec (23.4-35.0)
[2025-02-08 12:57] LABS: ALT (SGPT) 27 U/L (0-50); AST (SGOT) 27 U/L (17-59); Albumin 4.0 g/dl (3.5-5.0); Alkaline Phosphatase 77 U/L (38-126); Blood Urea Nitrogen 15 mg/dl (9-20); Calcium 9.1 mg/dl (8.4-10.2); Carbon Dioxide 27 mmol/L (22-30); Chloride 103 mmol/L (98-107); Glucose 130 mg/dl (70-99); Potassium 4.1 mmol/L (3.5-5.1); Sodium 136 mmol/L (135-145); Total Protein 6.7 g/dl (6.3-8.2); eGFR > 60.00
[2025-02-08 14:25] VITALS: BMI 36.1
[2025-02-26] VITALS (23 sets, daily range): BP systolic 128–171; BP diastolic 54–110; BMI 36.1
[2025-02-26] MEDS: TYLENOL 1000 MG PO (10:15)
[2025-02-26] MEDS: HEPARIN 5000 UNITS SC ×2 (10:15→21:25)
[2025-02-26] MEDS: NEURONTIN 300 MG PO ×2 (10:15→21:23)
[2025-02-26 10:23] LABS: Glucose - Point of Care 130 mg/dl (70-99)
[2025-02-26] MEDS: NORMOSOL-R/PLASMALYTE-A 1000 IV (10:26)
[2025-02-26 16:05] LABS: Glucose - Point of Care 169 mg/dl (70-99)
[2025-02-26] MEDS: DILAUDID 0.25 MG IV ×3 (16:22→17:17)
--- NOTE | 2025-02-26 17:04 | HPS.HSE ---
Family Physician
-
Family Physician: Yuliya Roman MD
Chief Complaint
-
Respiratory distress following extubation postoperatively
History of Present Illness
79-year-old male with a past medical history of diabetes, hypertension, hyperlipidemia, obesity, SYDNEE, GERD, CAD status post CABG, and lung cancer status post right upper lobe resection 02/26/2025 presents with respiratory distress after extubation
postoperatively. Per report, patient was a difficult intubation for his surgery. He was extubated postoperatively, and has mild respiratory distress. He is currently requiring 4 L of oxygen. He does report shortness of breath. Denies nausea.
He also reports his right chest incisional pain is 9 out of 10 in intensity. No fever.
Medical History
Past Medical History
Past Medical History: Reports Other
Additional Past Medical History:
Anxiety
Type 2 diabetes mellitus
Essential hypertension
Hyperlipidemia
GERD
Obesity
SYDNEE
Vertigo
Seasonal allergic rhinitis
IBS
Thyroid nodule/goiter
Right frontal lobe meningioma
Coronary artery disease, Status post CABG and PCI status post CABG
Vertigo
BPH
Fatty liver
Lung cancer
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
Past Surgical History: Reports Other
Additional Past Surgical History:
Bowel resection
Thyroidectomy
Back surgery
Cardiac cath
Coronary bypass graft
Appendectomy
Cholecystectomy
ORIF left ankle
Right upper lobe lobectomy
Social History
Tobacco: Former Smoker
Alcohol: Occasional
Drug: None
Family History
Family History: CAD, Diabetes, Hypertension and Other
Allergies / Home Medications
Allergies reflects when Allergies were last updated in [facility].
Home Medications with original date entered in [facility]
Allergy/Medication List:
Allergies
Allergy/AdvReac Type Severity Reaction Status Date / Time
iodine Allergy Rash Verified 02/26/25 16:16
Sulfa (Sulfonamide Allergy Swelling Verified 02/26/25 10:04
Antibiotics)
Home Medications Table - record
�Medication �Instructions �Recorded �Confirmed
canagliflozin 100 mg tablet 300 mg PO DAILY Diabetes 04/13/19 02/26/25
(Invokana)
multivitamin with folic acid 400 1 tab PO DAILY Supplement 04/13/19 02/26/25
mcg tablet (Tab-A-Fabi)
amlodipine 2.5 mg tablet 2.5 mg PO DAILY Blood pressure #30 10/01/23 02/26/25
tabs
buspirone 5 mg tablet 5 mg PO BID 03/02/24 02/26/25
famotidine 40 mg tablet 40 mg PO HS 03/02/24 02/26/25
finasteride 5 mg tablet 5 mg PO DAILY 03/02/24 02/26/25
lisinopril 5 mg tablet 5 mg PO HS Blood pressure 03/02/24 02/26/25
pantoprazole 40 mg tablet,delayed 40 mg PO HS 03/02/24 02/26/25
release
aspirin 81 mg capsule 81 mg PO DAILY 04/03/24 02/26/25
niacin 500 mg tablet,extended 500 mg PO BID 04/03/24 02/26/25
release 24 hr
wheat dextrin 1 gram tablet 1 g PO DAILY 04/03/24 02/26/25
(Benefiber (wheat dextrin))
simvastatin 10 mg tablet 10 mg PO HS 07/29/24 02/26/25
albuterol sulfate 90 mcg/actuation 2 inh inhalation Q6H PRN shortness 08/29/24 02/26/25
breath activated powder inhaler of breath or wheezing #1 ea
tezepelumab-ekko 210 mg/1.91 mL 210 mg SC Q4W 02/19/25 02/26/25
(110 mg/mL) subcutaneous syringe
(Tezspire)
Review of Systems
-
Unable to obtain full review of systems at this time due to: Acuity
A 12 point ROS was completed and negative except as noted: No
Physical Exam
Vital Signs
Vital Signs
Temp Pulse Resp BP Pulse Ox
97.0 F 88 15 138/58 92
02/26/25 17:00 02/26/25 16:54 02/26/25 16:54 02/26/25 16:54 02/26/25 17:00
Physical Exam
General: Well Developed, Well Nourished and No Apparent Distress
HEENT: NormoCephalic, Anicteric and Moist mucous membranes
Respiratory: Rhonchi, Crackles and Chest Tube (R sided chest CT )
Cardiac: S1/S2 and Regular Rhythm
GI: Soft and Non Tender
Musculoskeletal: No Clubbing, No Cyanosis, Edema, Left Lower Extremity and Edema, Right Lower Extremity
Neuro: Awake
Psych: Calm
Laboratory Results
-
02/08/25 09:50
02/08/25 09:51
Laboratory Results
PT 15.1 Sec (11.4-14.6) H 02/08/25 09:51
INR 1.16 02/08/25 09:51
APTT 37.3 Sec (23.4-35.0) H 02/08/25 09:51
Total Bilirubin 1.0 mg/dl (0.2-1.3) 02/08/25 09:51
AST 27 U/L (17-59) 02/08/25 09:51
ALT 27 U/L (0-50) 02/08/25 09:51
Alkaline Phosphatase 77 U/L (38-126) 02/08/25 09:51
Impression/Plan
-
HPI: 79-year-old male with a past medical history of diabetes, hypertension, hyperlipidemia, obesity, SYDNEE, GERD, CAD status post CABG, and lung cancer status post right upper lobe resection 02/26/2025 presents with respiratory distress after
extubation postoperatively. Per report, patient was a difficult intubation for his surgery. He was extubated postoperatively, and has mild respiratory distress. He is currently requiring 4 L of oxygen. He does report shortness of breath. Denies
nausea. He also reports his right chest incisional pain is 9 out of 10 in intensity. No fever.
#Acute hypoxic respiratory insufficiency
#Moderate respiratory distress postoperatively after extubation
Currently requiring 4 L of oxygen
Monitor in ICU overnight, consult hydraulic governor assembler/lay out helper
Bronchodilators, CPAP/BiPAP HS
Wean oxygen as tolerated
#Right-sided lung cancer
Status post right upper lobe resection 02/26/[address] Ortiz
Continue chest tube management as per pulmonology
#Coronary artery disease status post CABG
Continue aspirin, statin
#Diabetes
Patient on Invokana at home
He is ordered Farxiga here
Check hemoglobin A1c, sliding scale insulin
Currently ordered clear liquids
#Essential hypertension
Continue amlodipine, lisinopril
#Hyperlipidemia
Continue statin, niacin
#Obstructive sleep apnea
CPAP/BiPAP at bedtime
#Gastroesophageal reflux disease
Continue PPI, H2 kina
#BPH
Currently has a Cerda
Continue finasteride, add Flomax
Bladder sparing protocol after Cerda removal
#Anxiety
Continue BuSpar
#Obesity due to excess calories
Affects all aspects of care
DVT prophylaxis�subcu heparin as per surgical oncology
Full code
Total time spent to see the patient on the floor, examine the patient, review data and lab results, discuss treatment plan with patient, nursing staff around 77 minutes.
[2025-02-26] MEDS: D5/0.9% SODIUM CHLORIDE 1000 IV (17:40)
[2025-02-26] MEDS: NEURONTIN PO (17:47)
[2025-02-26] MEDS: TYLENOL PO (17:47)
--- NOTE | 2025-02-26 17:48 | PTCARENOTE ---
Rec'd Pt. from PACU.
6L N/C, Drowsy, AO2.
central art pressure not correlating with NIBP channel marketing specialist notified --> use average of the two.
Coal Dumping Equipment Operator bedside updating family.
Chest tube in place.
[2025-02-26] MEDS: VASOTEC 0.625 MG IV (18:22)
--- NOTE | 2025-02-26 20:30 | PTCARENOTE ---
Pt is Aox4, passed swallow evaluation, able to take oral medications. VSS, 6L NC sat 100%. Burns in place. IVF infusing. NSR with 1st degree and BBB on monitor. SCDs on. LE edema. Chest tube on right lateral side, -20cm wall suction with sanguineous
output. Cerda in place.
[2025-02-26] MEDS: DUONEB 3 ML INH (20:33)
[2025-02-26] MEDS: PROTONIX 40 MG PO (21:23)
[2025-02-26] MEDS: LIPITOR 10 MG PO (21:24)
[2025-02-26] MEDS: PEPCID 40 MG PO (21:24)
[2025-02-26] MEDS: NIASPAN TIME RELEASE 500 MG PO (21:24)
[2025-02-26] MEDS: BUSPAR 5 MG PO (21:24)
[2025-02-26] MEDS: ZESTRIL 5 MG PO (21:24)
[2025-02-26] MEDS: COLACE 100 MG PO (21:25)
[2025-02-26] MEDS: TYLENOL 650 MG PO (21:25)
[2025-02-26 21:27] LABS: Glucose - Point of Care 195 mg/dl (70-99)
[2025-02-26 22:08] LABS: Hematocrit 41.5 % (39.0-52.0); Hemoglobin 14.6 g/dL (13.0-18.0); Mean Corp Hgb Conc. 35.2 g/dL (33.0-37.0); Mean Corpuscular Volume 90.6 fL (80.0-94.0); Platelet Count 146 10^3/uL (130-400); Red Cell Dist. Width 13.0 % (11.5-14.5)
[2025-02-26 22:18] LABS: INR 1.16; PT 14.9 Sec (11.4-14.6)
[2025-02-26 22:19] LABS: APTT 31.0 Sec (23.4-35.0)
[2025-02-26 22:30] LABS: Blood Urea Nitrogen 15 mg/dl (9-20); Calcium 8.5 mg/dl (8.4-10.2); Carbon Dioxide 23 mmol/L (22-30); Chloride 102 mmol/L (98-107); Estimated Creatinine Clearance 111 ml/min; Glucose 216 mg/dl (70-99); Magnesium 1.7 mg/dl (1.6-2.3); Potassium 4.0 mmol/L (3.5-5.1); Sodium 132 mmol/L (135-145); eGFR > 60.00
[2025-02-26] MEDS: LR 1000 IV (22:52)
[2025-02-26] MEDS: NOVOLOG FLEXPEN 5 UNITS SC (23:06)
[2025-02-27] VITALS (27 sets, daily range): BP systolic 121–160; BP diastolic 44–72; PULSE 94–96; O2SAT 98; BMI 36.9
[2025-02-27] MEDS: TYLENOL PO (02:50)
[2025-02-27] MEDS: TYLENOL 650 MG PO ×5 (03:07→20:18)
[2025-02-27 03:59] LABS: Hematocrit 38.8 % (39.0-52.0); Hemoglobin 13.9 g/dL (13.0-18.0); Mean Corp Hgb Conc. 35.8 g/dL (33.0-37.0); Mean Corpuscular Volume 90.7 fL (80.0-94.0); Platelet Count 156 10^3/uL (130-400); Red Cell Dist. Width 12.8 % (11.5-14.5)
[2025-02-27] MEDS: ROXICODONE 5 MG PO ×2 (04:19→15:47)
[2025-02-27 04:24] LABS: Blood Urea Nitrogen 17 mg/dl (9-20); Calcium 8.5 mg/dl (8.4-10.2); Carbon Dioxide 24 mmol/L (22-30); Chloride 104 mmol/L (98-107); Estimated Creatinine Clearance 111 ml/min; Glucose 197 mg/dl (70-99); Magnesium 1.8 mg/dl (1.6-2.3); Potassium 4.3 mmol/L (3.5-5.1); Sodium 134 mmol/L (135-145); eGFR > 60.00
[2025-02-27] MEDS: MORPHINE SULFATE 2 MG IV ×2 (05:17→08:23)
[2025-02-27] MEDS: MAGNESIUM SULFATE 102 GRAMS IV (06:13)
[2025-02-27] MEDS: DUONEB 3 ML INH ×4 (07:24→19:43)
--- NOTE | 2025-02-27 07:56 | W.PN.HOSP.TC ---
Today's Communication/Plan
-
Stable for MedSurg
Assessment / Plan
Assessment / Plan
HPI: HPI: 79-year-old male with a past medical history of diabetes, hypertension, hyperlipidemia, obesity, SYDNEE, GERD, CAD status post CABG, and lung cancer status post right upper lobe resection 02/26/2025 presents with mild respiratory distress
after extubation postoperatively. Per report, patient was a difficult intubation for his surgery. He was extubated postoperatively, and has mild respiratory distress. He is currently requiring 4 L of oxygen. He does report shortness of breath.
Denies nausea. He also reports his right chest incisional pain is 9 out of 10 in intensity. No fever.
#Acute hypoxic respiratory insufficiency
#Mild respiratory distress postoperatively after extubation
Appreciate bus info consultant input, monitored in the ICU overnight
Much improved today, patient denies shortness of breath
Currently requiring 2 L of oxygen, down from 4
Continue bronchodilators, CPAP HS
Stable for med-surg, wean oxygen as tolerated
#Right-sided lung cancer
Status post right upper lobe resection 02/26/[address] Ortiz, follow-up on pathology results
Continue chest tube management as per Dr. Ortiz/pulmonology
#Coronary artery disease status post CABG
Continue aspirin, statin
#Diabetes
Patient on Invokana at home
He is ordered Farxiga here. Hgb A1c 7.1
Advance to a regular diet today, will change to carb controlled diet
Continue sliding scale insulin
#Essential hypertension
Continue amlodipine, lisinopril
#Hyperlipidemia
Continue statin, niacin
#Obstructive sleep apnea
CPAP at bedtime
#Gastroesophageal reflux disease
Continue PPI, H2 kina
#BPH
Currently has a Cerda
Continue finasteride, add Flomax
Bladder sparing protocol after Cerda removal
#Anxiety
Continue BuSpar
#Obesity due to excess calories
Affects all aspects of care
DVT prophylaxis�subcu heparin as per surgical oncology
Full code
Total time spent to see the patient on the floor, examine the patient, review data and lab results, discuss treatment plan with patient, nursing staff around 50 minutes.
Physical Exam
General: Obese, No Apparent Distress
HEENT: NormoCephalic, Anicteric and Moist mucous membranes
Respiratory: Coarse breath sounds and Chest Tube (R sided chest CT )
Cardiac: S1/S2 and Regular Rhythm
GI: Soft and Non Tender
Musculoskeletal: No Clubbing, No Cyanosis, Edema, Left Lower Extremity and Edema, Right Lower Extremity
Neuro: Awake
Psych: Calm
Anticipated Discharge: > 48 hours
Subjective/Interval History
-
Date of Service: February 27, 2025
Patient reports pain at his chest tube site. Denies shortness of breath. No fever, no vomiting.
Objective Data
-
Labs:
Laboratory Results
02/26/25 02/27/25
21:56 03:53
WBC 13.2 H 11.7 H
Hgb 14.6 13.9
Hct 41.5 38.8 L
Plt Count 146 156
PT 14.9 H
INR 1.16
APTT 31.0
Sodium 132 L 134 L
Potassium 4.0 4.3
Chloride 102 104
Carbon Dioxide 23 24
BUN 15 17
Creatinine 0.6 L 0.6 L
Glucose 216 H 197 H
Calcium 8.5 8.5
Vital Signs:
Vital Signs
Temp Pulse Resp BP Pulse Ox
98.0 F 83 16 130/52 100
02/27/25 05:23 02/27/25 07:26 02/27/25 07:26 02/27/25 06:00 02/27/25 07:26
I&O
02/26/25 02/27/25 02/28/25
06:59 06:59 06:59
Intake Total 985 / 985
Output Total 1340 / 1340
Balance -355 / -355
[2025-02-27] MEDS: NOVOLOG FLEXPEN-MODERATE RESISTANCE 1 UNITS SC ×2 (08:10→12:33)
[2025-02-27] MEDS: FARXIGA 10 MG PO (08:11)
[2025-02-27] MEDS: FLOMAX 0.4 MG PO (08:11)
[2025-02-27] MEDS: PROSCAR 5 MG PO (08:11)
[2025-02-27] MEDS: NORVASC 5 MG PO (08:11)
[2025-02-27] MEDS: BUSPAR 5 MG PO ×2 (08:11→20:17)
[2025-02-27] MEDS: NEURONTIN 300 MG PO ×3 (08:11→21:58)
[2025-02-27] MEDS: COLACE 100 MG PO (08:11)
[2025-02-27] MEDS: NIASPAN TIME RELEASE 500 MG PO ×2 (08:12→20:18)
[2025-02-27] MEDS: HEPARIN 5000 UNITS SC ×2 (08:12→20:17)
[2025-02-27 08:20] LABS: Glucose - Point of Care 187 mg/dl (70-99)
[2025-02-27 08:23] LABS: Glycohemoglobin (HgbA1c) 7.1 % (4.0-5.9)
--- NOTE | 2025-02-27 08:28 | CON.INTV ---
Consultation
Consultation Request
Date/Time Consultation Requested: 02/26/2025 - 1717
Date/Time Consultation Performed: 02/27/2025 - 819
Requesting Provider: Dr. Mcgowan
Performing Provider: Dr. Menard
Reason for Consultation: s/p lobectomy
Medical History
-
Chief Complaint: Elective lobectomy
History of Present Illness:
79-year-old male with a past medical history of SYDNEE, severe persistent asthma, right upper lobe lung cancer, history of colon polyps, DM type II, GERD, mixed hyperlipidemia, hypertension, CAD s/p CABG, and thyroid goiter s/p thyroid resection who
presents with elective lung surgery due to lung cancer. �Patient recently underwent CT-guided needle biopsy via interventional radiology on 12/21/2024, showing pulmonary adenocarcinoma which was well-moderately differentiated with a predominantly
lipidic pattern with focal acinar, micropapillary and papillary patterns. There was no PD-L1 expression and relevant biomarkers were not detected. PET?CT on 01/15/2025 Showed stable medial right upper lobe apical subpleural nodule with
minimal�mild FDG avidity, with minimal increase in size of subpleural posterior right upper lobe nodule with slightly increased minimal�mild FDG avidity with no additional suspicious FDG avid lesions in the body. Patient underwent minimally
invasive right upper lobectomy, and was transferred to ICU postoperatively for further care. Multiple Punch Press Operator service consulted for additional management/recommendations.
PMHx: SYDNEE, severe persistent asthma, right upper lobe lung cancer, history of colon polyps, DM type II, GERD, mixed hyperlipidemia, hypertension, CAD s/p CABG, thyroid goiter s/p thyroid resection by Dr. Ortiz on 04/07/2024
PSHx: appendectomy, bowel resection, CABG, cardiac stents, cholecystectomy, left ankle ORIF, thyroidectomy (March 2024, spinal surgery (07/2024), right cubital tunnel release, robotic bronchoscopy (September 2024)
Past Medical History
Past Medical History: Other ( above as per HPI)
Past Surgical History: Other ( above as per HPI)
Social History
Tobacco: Former Smoker (quit on 05/01/1995, 52-aggy-vlop history)
Alcohol: Occasional
Drug: None
Personal:
Living: With Family
Family History
Family History: CAD (Father, mother, brother and cousin)
Allergies / Home Medications
Allergies
Allergy/AdvReac Type Severity Reaction Status Date / Time
iodine Allergy Rash Verified 02/26/25 16:16
Sulfa (Sulfonamide Allergy Swelling Verified 02/26/25 10:04
Antibiotics)
Home Medications
�Medication �Instructions �Recorded �Confirmed �Last Taken �Type
canagliflozin 100 mg tablet 300 mg PO DAILY Diabetes 04/13/19 02/26/25 02/25/25 History
(Invokana)
multivitamin with folic acid 400 1 tab PO DAILY Supplement 04/13/19 02/26/25 02/19/25 History
mcg tablet (Tab-A-Fabi)
amlodipine 2.5 mg tablet 2.5 mg PO DAILY Blood pressure #30 10/01/23 02/26/25 02/25/25 Rx
tabs
buspirone 5 mg tablet 5 mg PO BID Mental Health/Anxiety 03/02/24 02/26/25 02/25/25 History
famotidine 40 mg tablet 40 mg PO HS Gastrointestinal Issue 03/02/24 02/26/25 02/25/25 History
finasteride 5 mg tablet 5 mg PO DAILY Urinary Issue 03/02/24 02/26/25 02/25/25 History
lisinopril 5 mg tablet 5 mg PO HS Blood pressure 03/02/24 02/26/25 02/24/25 History
pantoprazole 40 mg tablet,delayed 40 mg PO HS Gastrointestinal Issue 03/02/24 02/26/25 02/24/25 History
release
aspirin 81 mg capsule 81 mg PO DAILY Blood Clot 04/03/24 02/26/25 02/19/25 History
Prevention/Tx
niacin 500 mg tablet,extended 500 mg PO BID Supplement 04/03/24 02/26/25 02/25/25 History
release 24 hr
wheat dextrin 1 gram tablet 1 g PO DAILY Supplement 04/03/24 02/26/25 02/25/25 History
(Benefiber (wheat dextrin))
simvastatin 10 mg tablet 10 mg PO HS High Cholesterol 07/29/24 02/26/25 02/24/25 History
albuterol sulfate 90 mcg/actuation 2 inh inhalation Q6H PRN shortness 08/29/24 02/26/25 09/27/24 08:00 Rx
breath activated powder inhaler of breath or wheezing #1 ea
tezepelumab-ekko 210 mg/1.91 mL 210 mg SC Q4W Lung/Breathing Issues 02/19/25 02/27/25 Unknown History
(110 mg/mL) subcutaneous syringe
(Tezspire)
Review of Systems
-
History Source: Patient
All other systems: Negative unless noted
Vitals / Labs / Diagnostic Testing
Vital Signs
Temp Pulse Resp BP Pulse Ox
97.9 F 84 16 133/56 98
02/27/25 08:07 02/27/25 11:24 02/27/25 11:24 02/27/25 10:00 02/27/25 11:24
Lab Data
02/27/25 03:53
02/27/25 03:53
Laboratory Results
02/26/25
21:56
PT 14.9 H
INR 1.16
APTT 31.0
Diagnostic Testing:
Physical Exam
-
HEENT: Normocephalic and Anicteric
Cardiovascular: S1/S2 and Peripheral Edema (trace lower extremity edema bilaterally)
Respiratory: Wheeze (negative), Rales (bilateral (R >L)), Rhonchi (bilateral (R >L)), Other (bubbling heard in anterior hemithorax (right)) and Other (right-sided chest tube with air leak during cough, currently on waterseal)
GI: Soft, Non Distended, Non Tender and Normal Bowel Sounds
Neurology: Awake, Alert, Oriented and Tremors (negative)
Skin: Warm and Dry
General: Respiratory Distress (negative), Comfortable, Fever (negative) and Chills (negative)
Assessment
-
Assessment: 79-year-old male with a past medical history of SYDNEE, severe persistent asthma, right upper lobe lung cancer, history of colon polyps, DM type II, GERD, mixed hyperlipidemia, hypertension, CAD s/p CABG, and thyroid goiter s/p thyroid
resection who presents with elective lung surgery due to lung cancer. �Patient recently underwent CT-guided needle biopsy via interventional radiology on 12/21/2024, showing pulmonary adenocarcinoma which was well-moderately differentiated with a
predominantly lipidic pattern with focal acinar, micropapillary and papillary patterns. There was no PD-L1 expression and relevant biomarkers were not detected. PET?CT on 01/15/2025 Showed stable medial right upper lobe apical subpleural nodule
with minimal�mild FDG avidity, with minimal increase in size of subpleural posterior right upper lobe nodule with slightly increased minimal�mild FDG avidity with no additional suspicious FDG avid lesions in the body. Patient underwent minimally
invasive right upper lobectomy, and was transferred to ICU postoperatively for further care. Multiple Punch Press Operator service consulted for additional management/recommendations.
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 Ortiz on 04/07/2024
Impression:
#Right upper lobe NSCLC s/p minimally invasive right upper lobe lobectomy � POD #1
#Leukocytosis - likely reactive
#Hyponatremia (mild)
#DM type II v/b hyperglycemia (mild)
#Chronic cough � now resolved s/p surgery above
#History of severe persistent asthma/COPD on Breztri + Tezspire in office
Plan:
- Postoperative management as per surgical oncology
- Chest tube per surgery
- Follow up path from OR
- Pain control
- Trend sNa
- Maintain SpO2 >90-94%
- Maintain MAP>65
- Replete electrolytes with K>4, Mg>2
- Maintain euglycemia with goal BG 140-180
- Trend H/H and transfuse if needed to keep Hb>7g/dL; keep plt>50k (given post-op status)
- prn nebulized bronchodilators - not currently bronchospastic
- Incentive spirometer encouraged 10x per hour for at least 4 hrs a day
- DVT ppx
Patient is stable for downgrade out of ICU to telemetry. Pulmonary service will continue to follow along.
Patient was seen and evaluated on 02/27/2025. Total time spent today was 59 minute for this encounter. Time includes reviewing laboratory tests/imaging results, reviewing pertinent medical records, obtaining and reviewing medical history,
performing an appropriate physical exam, ordering medications, tests and procedures. Time also includes documentation of this encounter, coordinating patient care and communicating with other healthcare professionals. Total time does not include
separately billed tests or procedures performed on this date of service.
--- NOTE | 2025-02-27 08:45 | PTCARENOTE ---
Rec'd pt at 0700. Pt AAOx3, follows commands, ESPINOZA. Monitor SR. Left radial a-line in place, zeroed. Right lateral chest tube in place to -20cm sx. +tidaling, no crepitus or air leak noted. Dressing intact, sang drainage to atrium. Right BS coarse,
left dim. Pox 100% 6LNC, lowered to 4LNC. +BS, abd large/soft/NT. Cerda draining nery urine.
--- NOTE | 2025-02-27 11:00 | W.PN.GENERIC ---
Assessment / Plan
-
S/p Minimally invasive right upper lobectomy. POD #1
No problems with airway overnight. Stable
Will transfer pt to the surgical floor
Chest tube to H2O seal
OOB and ambulate
Will add Toradol to pain mgt
Await path
Physician Progress Note
Subjective
c/o some incisional pain
Objective
Vital Signs
Temp Pulse Resp BP Pulse Ox
97.9 F 81 18 133/56 100
02/27/25 08:07 02/27/25 10:00 02/27/25 10:00 02/27/25 10:00 02/27/25 10:00
Lab Results
02/27/25 03:53
02/27/25 03:53
Pul - dec rt chest.
Chest tube - no AL
--- NOTE | 2025-02-27 12:09 | W.PN.ANS.POP ---
Anesthesia Post Operative
- Anesthesia Post Op Note
Vital Signs Stable-See Nursing Note: Yes
Airway Patent: Yes
Adequate Pain Control: Yes
Change in Mental Status: No
Current Postoperative Nausea & Vomiting: No
Anesthesia Complications: No
General Anesthetic Recall: No
Unplanned Admission: No
Post Op Hydration Adequate: Yes
- -
Pt awake and alert, visiting with family. VSS
[2025-02-27] MEDS: TORADOL 15 MG IV ×3 (12:31→23:45)
[2025-02-27 12:44] LABS: Glucose - Point of Care 174 mg/dl (70-99)
--- NOTE | 2025-02-27 13:43 | PTCARENOTE ---
1100- A-line and IVF dc'd, diet advanced. Right CT to water seal. Pt downgraded to medsur LOC. ~1200 pt OOB to recliner chair approx 1.5hrs. Pt back to bed at this time.
[2025-02-27] MEDS: NOVOLOG FLEXPEN-MODERATE RESISTANCE 5 UNITS SC (16:53)
[2025-02-27 17:03] LABS: Glucose - Point of Care 252 mg/dl (70-99)
--- NOTE | 2025-02-27 18:27 | PTCARENOTE ---
1744 Pt arrived from ICU. VSS. R Chest tube to water seal. draining sanguinous drainage. 97% on 2LO2. Oriented to room and call clinton. bed locked and in lowest position.
[2025-02-27] MEDS: COLACE PO (20:17)
[2025-02-27] MEDS: LIPITOR 10 MG PO (21:58)
[2025-02-27] MEDS: PROTONIX 40 MG PO (21:58)
[2025-02-27] MEDS: PEPCID 40 MG PO (21:58)
[2025-02-27] MEDS: ZESTRIL 5 MG PO (21:58)
[2025-02-27 22:08] LABS: Glucose - Point of Care 227 mg/dl (70-99)
[2025-02-27] MEDS: FLUSH (NSS) 1 FLUSH IV (23:45)
[2025-02-28] MEDS: TYLENOL PO ×4 (00:40→23:57)
[2025-02-28] MEDS: MORPHINE SULFATE 2 MG IV ×3 (02:42→16:10)
--- NOTE | 2025-02-28 03:06 | PTCARENOTE ---
Patient tipped over chest tube drainage system @0300. New drainage system replaced by RN. Tidaling is present. Dressing is clean, dry, and intact. Care ongoing.
[2025-02-28 03:16] VITALS: BMI 36.7
[2025-02-28] MEDS: FLUSH (NSS) 1 FLUSH IV (06:05)
[2025-02-28] MEDS: TORADOL 15 MG IV ×4 (06:05→23:48)
[2025-02-28 07:25] LABS: Hematocrit 37.0 % (39.0-52.0); Hemoglobin 12.8 g/dL (13.0-18.0); Mean Corp Hgb Conc. 34.6 g/dL (33.0-37.0); Mean Corpuscular Volume 93.2 fL (80.0-94.0); Platelet Count 148 10^3/uL (130-400); Red Cell Dist. Width 13.2 % (11.5-14.5)
[2025-02-28] MEDS: DUONEB 3 ML INH ×4 (07:37→20:48)
[2025-02-28 07:56] LABS: Blood Urea Nitrogen 27 mg/dl (9-20); Calcium 8.5 mg/dl (8.4-10.2); Carbon Dioxide 28 mmol/L (22-30); Chloride 99 mmol/L (98-107); Estimated Creatinine Clearance 84 ml/min; Glucose 189 mg/dl (70-99); Potassium 3.9 mmol/L (3.5-5.1); Sodium 132 mmol/L (135-145); eGFR > 60.00
[2025-02-28 08:30] VITALS: BP 140/60
[2025-02-28 08:44] LABS: Glucose - Point of Care 188 mg/dl (70-99)
[2025-02-28] MEDS: NEURONTIN 300 MG PO ×3 (09:08→21:23)
[2025-02-28] MEDS: NIASPAN TIME RELEASE 500 MG PO ×2 (09:08→21:23)
[2025-02-28] MEDS: FARXIGA 10 MG PO (09:08)
[2025-02-28] MEDS: TYLENOL 650 MG PO ×4 (09:08→21:26)
[2025-02-28] MEDS: BUSPAR 5 MG PO ×2 (09:09→21:22)
[2025-02-28] MEDS: PROSCAR 5 MG PO (09:09)
[2025-02-28] MEDS: NORVASC 5 MG PO (09:09)
[2025-02-28] MEDS: COLACE PO ×2 (09:09→09:20)
[2025-02-28] MEDS: HEPARIN 5000 UNITS SC ×2 (09:10→21:26)
[2025-02-28] MEDS: NOVOLOG FLEXPEN-MODERATE RESISTANCE 1 UNITS SC ×2 (09:10→13:41)
[2025-02-28] MEDS: FLOMAX 0.4 MG PO (09:10)
--- NOTE | 2025-02-28 09:35 | W.PN.HOSP.TC ---
Today's Communication/Plan
-
see bold
Assessment / Plan
Assessment / Plan
HPI: HPI: 79-year-old male with a past medical history of diabetes, hypertension, hyperlipidemia, obesity, SYDNEE, GERD, CAD status post CABG, and lung cancer status post right upper lobe resection 02/26/2025 presents with mild respiratory distress
after extubation postoperatively. Per report, patient was a difficult intubation for his surgery. He was extubated postoperatively, and has mild respiratory distress. He is currently requiring 4 L of oxygen. He does report shortness of breath.
Denies nausea. He also reports his right chest incisional pain is 9 out of 10 in intensity. No fever.
#Acute hypoxic respiratory insufficiency
#Mild respiratory distress postoperatively after extubation
Appreciate sign language translator input, monitored in the ICU overnight, transferred out on 02/27/2025
Currently requiring 2 L of oxygen, down from 4
Continue bronchodilators, CPAP HS
02/28�patient short of breath, given Lasix 20 mg IV as recommended by Dr. Ortiz
Shortness of breath also due to pain from chest tube and surgery, continue pain medications prn
#Right-sided lung cancer
Status post right upper lobe resection 02/26/[address] Ortiz, follow-up on pathology results
Continue chest tube management as per Dr. Ortiz/pulmonology
#Acute blood loss anemia
Secondary to surgery, trend hemoglobin
#Leukocytosis
Likely reactive, patient is afebrile
#Hyponatremia
Mild, monitor
#Coronary artery disease status post CABG
Continue aspirin, statin
#Diabetes
Patient on Invokana at home. He is ordered Farxiga here. Hgb A1c 7.1
Continue carb controlled diet, sliding scale insulin
#Essential hypertension
Continue amlodipine, lisinopril
#Hyperlipidemia
Continue statin, niacin
#Obstructive sleep apnea
CPAP at bedtime
#Gastroesophageal reflux disease
Continue PPI, H2 kina
#BPH
Cerda removed 02/27, he is voiding
Continue finasteride, added Flomax, continue bladder scan protocol
#Anxiety
Continue BuSpar
#Obesity due to excess calories
Affects all aspects of care
DVT prophylaxis�subcu heparin as per surgical oncology
Full code
Total time spent to see the patient on the floor, examine the patient, review data and lab results, discuss treatment plan with patient, nursing staff around 40 minutes.
Physical Exam
General: Obese, No Apparent Distress
HEENT: NormoCephalic, Anicteric and Moist mucous membranes
Respiratory: Coarse breath sounds and Chest Tube (R sided chest CT )
Cardiac: S1/S2 and Regular Rhythm
GI: Soft and Non Tender
Musculoskeletal: No Clubbing, No Cyanosis, Edema, Left Lower Extremity and Edema, Right Lower Extremity
Neuro: Awake
Psych: Calm
Anticipated Discharge: 24 - 48 hours
Subjective/Interval History
-
Date of Service: February 27, 2025
Patient reports feeling more short of breath this morning. He reports right sided chest pain from his chest tube site. Denies left-sided chest pain. No fever, no vomiting.
Objective Data
-
Labs:
Laboratory Results
02/27/25
03:53
WBC 11.7 H
Hgb 13.9
Hct 38.8 L
Plt Count 156
Sodium 134 L
Potassium 4.3
Chloride 104
Carbon Dioxide 24
BUN 17
Creatinine 0.6 L
Glucose 197 H
Calcium 8.5
Vital Signs:
Vital Signs
Temp Pulse Resp BP Pulse Ox
97.9 F 102 28 122/58 98
02/27/25 08:07 02/27/25 12:00 02/27/25 12:00 02/27/25 11:55 02/27/25 11:55
I&O
02/26/25 02/27/25 02/28/25
06:59 06:59 06:59
Intake Total 985 / 1065 560 / 560
Output Total 1340 / 1340
Balance -355 / -275 560 / 560
--- NOTE | 2025-02-28 10:50 | CM ---
CM reviewed chart. Pt POD1 minimally invasive RU lobectomy w/CT in place.
Met with pt at bedside. IA completed. Explained role and discussed anticipated dc plan/options.
Pt lives alone in a [facility] apartment with 0ste.
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
Pt does not anticipate any skilled needs at dc. Family will transport.
[facility], [place]
[phone]
CM/SW will continue to follow to ensure a safe and timely dc.
[2025-02-28] MEDS: ROXICODONE 5 MG PO ×2 (11:28→17:43)
[2025-02-28] MEDS: LASIX 20 MG IV (12:18)
--- NOTE | 2025-02-28 12:41 | W.PN.GENERIC ---
Assessment / Plan
-
S/p Minimally invasive right upper lobectomy POD #2
The cause of his dyspnea is multifactorial, including, marginal preoperative PFTs, resection of the right upper lobe (~20% of lung volume), postoperative pain, and 3rd spacing fluid on POD #2.
Agree with one dose of IV Lasix
Continue current pain medications, oxycodone, Toradol, tylenol, and neurontin
When the chest tube is out, the pain should improve
Encourage pulmonary toilet
ambulate with pharmacy assistant
Await final pathology
Physician Progress Note
Subjective
felt like he couldn't breast last night and earlier this morning due to pain, but feeling much better. Currently, on 2L NC.
Objective
Vital Signs
Temp Pulse Resp BP Pulse Ox
97.7 F 85 18 140/60 92
02/28/25 08:30 02/28/25 11:22 02/28/25 11:22 02/28/25 09:09 02/28/25 11:22
Lab Results
02/28/25 06:43
02/28/25 06:43
Chest - dec BS in the right lung field. Dsg - CDI
Chest tube on water seal without AL
[2025-02-28 13:22] LABS: Glucose - Point of Care 196 mg/dl (70-99)
--- NOTE | 2025-02-28 14:11 | W.PN.PUL3 ---
Today's Communication / Plan
-
Pain control
Chest tube per surgical oncology
Follow up path from OR
Start budesonide
Continue DuoNebs
Encourage IS
Pulmonary service will continue to follow along
Assessment
-
Assessment: 79-year-old male with a past medical history of SYDNEE, severe persistent asthma, right upper lobe lung cancer, history of colon polyps, DM type II, GERD, mixed hyperlipidemia, hypertension, CAD s/p CABG, and thyroid goiter s/p thyroid
resection who presents with elective lung surgery due to lung cancer. �Patient recently underwent CT-guided needle biopsy via interventional radiology on 12/21/2024, showing pulmonary adenocarcinoma which was well-moderately differentiated with a
predominantly lipidic pattern with focal acinar, micropapillary and papillary patterns. There was no PD-L1 expression and relevant biomarkers were not detected. PET/CT on 01/15/2025 showed stable medial right upper lobe apical subpleural nodule
with minimal�mild FDG avidity, with minimal increase in size of subpleural posterior right upper lobe nodule with slightly increased minimal�mild FDG avidity with no additional suspicious FDG avid lesions in the body. Patient underwent minimally
invasive right upper lobectomy, and was transferred to ICU postoperatively for further care. Permaculture Designer service consulted for additional management/recommendations.
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 Ortiz on 04/07/2024
Impression:
#Right upper lobe NSCLC s/p minimally invasive right upper lobe lobectomy � POD #2
#Leukocytosis - likely reactive and now normal WBC as of 02/28
#Hyponatremia (mild)
#DM type II v/b hyperglycemia (mild)
#Chronic cough � now resolved s/p surgery above
#History of severe persistent asthma/COPD on Breztri + Tezspire in office
Plan:
- Postoperative management as per surgical oncology
- Chest tube per surgery - currently on CWS
- Follow up path from OR
- Pain control
- Trend sNa
- Anti-tussants as needed
- Maintain SpO2 >90-94%, using supplemental O2 as needed
- Continue DuoNebs
- Add budesonide
- Maintain MAP>65
- Replete electrolytes with K>4, Mg>2
- Maintain euglycemia with goal BG 140-180
- Trend H/H and transfuse if needed to keep Hb>7g/dL; keep plt>50k (given post-op status)
- prn nebulized bronchodilators
- Incentive spirometer encouraged 10x per hour for at least 4 hrs a day
- DVT ppx: HSQ
Pulmonary service will continue to follow along.
Total time spent today was 38 minute for this encounter. Time includes reviewing laboratory tests/imaging results, reviewing pertinent medical records, obtaining and reviewing medical history, performing an appropriate physical exam, ordering
medications, tests and procedures. Time also includes documentation of this encounter, coordinating patient care and communicating with other healthcare professionals. Total time does not include separately billed tests or procedures performed on
this date of service.
Subjective Data
-
Date of Service:
Date of Service: February 28, 2025
Chief Complaint: Pulmonary Follow Up
Subjective:
Pt developed SOB this AM and post-operative site pain, improved with morphine. Remains weak. Currently on 2L/min, breathing comfortably at rest. Chest tube on CWS with no visible air leak.
Review of Systems
General: Other (negative unless mentioned above)
Objective Data
Data Reviewed
Vital Signs / I&O / Oxygen:
Vital Signs
Temp Pulse Resp BP Pulse Ox
97.7 F 85 18 140/60 92
02/28/25 08:30 02/28/25 11:22 02/28/25 11:22 02/28/25 09:09 02/28/25 11:22
Intake and Output
02/27/25 02/28/2503/01/25
06:59 06:59 06:59
Intake Total 985 / 1065 800 / 800 720 / 720
Output Total 1340 / 1340 1570 / 1570 200 / 200
Balance -355 / -275 -770 / -770 520 / 520
SaO2 92
Nasal Cannula flow liters per 2
minute
Physical Exam
General: Respiratory Distress (n), Comfortable, Chills (n) and Sweats (n)
HEENT: Normocephalic and Anicteric
Cardiovascular: S1-S2 and Peripheral Edema (trace bilateral LE edema)
Respiratory: Wheeze (mild expiratory), Crackles (bilateral (R>L)), Rhonchi (bilateral (R>L)), Non-Labored Respirations, Stridor (n), Chest Tube (right-sided chest tube with air leak during cough, currently on waterseal) and Other (bubbling heard in
anterior hemithorax (right))
GI: Soft, Non Distended, Non Tender and Normal Bowel Sounds
Neurology: Awake, Alert and Tremors (n)
Skin: Warm, Dry, Cyanosis (n) and Jaundice (n)
Labs/Micro/Reports
Lab Data
02/28/25 06:43
02/28/25 06:43
[2025-02-28 15:30] VITALS: BP 137/64
[2025-02-28 17:25] LABS: Glucose - Point of Care 200 mg/dl (70-99)
[2025-02-28] MEDS: NOVOLOG FLEXPEN-MODERATE RESISTANCE 3 UNITS SC (17:43)
[2025-02-28] MEDS: PULMICORT 0.5 MG INH (20:48)
[2025-02-28] MEDS: PROTONIX 40 MG PO (21:22)
[2025-02-28] MEDS: COLACE 100 MG PO (21:22)
[2025-02-28] MEDS: LIPITOR 10 MG PO (21:23)
[2025-02-28] MEDS: ZESTRIL 5 MG PO (21:23)
[2025-02-28] MEDS: PEPCID 40 MG PO (21:26)
[2025-02-28 22:40] LABS: Glucose - Point of Care 223 mg/dl (70-99)
[2025-02-28 23:00] VITALS: BP 149/97
[2025-03-01] MEDS: TYLENOL 650 MG PO ×6 (03:27→23:30)
[2025-03-01] MEDS: MORPHINE SULFATE 2 MG IV ×2 (03:31→06:41)
--- NOTE | 2025-03-01 04:25 | PTCARENOTE ---
Addendum entered by Rox Zavala RN 03/01/25 07:36:
pt complained of pain and SOB overnight, on 2L NC. Change in breath sounds on RU chest. Absent at start of shift, audible crackles heard at this time. Chest tube tidaling high, each chamber noted with fluid. Patient was asked if it was tipped over,
pt denied. STEVEN Parmar assessed pt at bedside. Pt put on quality assurance monitor chassis. Bedside CXR confirmed correct placement of chest tube. Advised to continue w pain meds prn.
Original Note:
pt complaints of pain and SOB overnight, on 2L NC. Bedside CXR confirmed correct placement of chest tube. continue w pain meds prn.
[2025-03-01] MEDS: TORADOL 15 MG IV ×4 (05:27→23:30)
[2025-03-01] MEDS: DUONEB 3 ML INH ×4 (06:35→19:14)
[2025-03-01] MEDS: PULMICORT 0.5 MG INH ×2 (06:36→19:14)
[2025-03-01 07:15] VITALS: BP 110/73
--- NOTE | 2025-03-01 07:30 | PTCARENOTE ---
Patient found with Pleurx drainage system knocked over. Bloody drainage in all three columns and Chest aggressively and audibly tidaling. Physician at bedside. Chest tube drainage system changed, patient educated to call staff before voiding in
urinal or moving out of bed, Patient verbalized understanding. CT drainage canister taped to floor.
[2025-03-01 07:38] LABS: Hematocrit 38.8 % (39.0-52.0); Hemoglobin 13.1 g/dL (13.0-18.0); Mean Corp Hgb Conc. 33.8 g/dL (33.0-37.0); Mean Corpuscular Volume 94.6 fL (80.0-94.0); Platelet Count 151 10^3/uL (130-400); Red Cell Dist. Width 13.2 % (11.5-14.5)
[2025-03-01 08:06] LABS: Blood Urea Nitrogen 26 mg/dl (9-20); Calcium 9.0 mg/dl (8.4-10.2); Carbon Dioxide 30 mmol/L (22-30); Chloride 98 mmol/L (98-107); Estimated Creatinine Clearance 84 ml/min; Glucose 170 mg/dl (70-99); Potassium 3.9 mmol/L (3.5-5.1); Sodium 134 mmol/L (135-145); eGFR > 60.00
--- NOTE | 2025-03-01 08:10 | W.PN.GENERIC ---
Assessment / Plan
-
A/P: Multifocal right upper lobe cancer
s/p minimally right upper lobectomy and mediastinal lymph node dissection POD #3
His CXR findings are consistent with postoperative changes after resection of the large right upper lobe, along with significant atelectasis and poor expansion due to inadequate pulmonary effort. I doubt he has a middle lobe torsion, as we observed
minimal fissure between the middle lobe and the lower lobe.
He needs aggressive pulmonary toilet and better pain control.
PT to see the patient. NEEDS TO AMBULATE!!
Encourage IS
Continue narcs prn, Toradol, Gabapentin, and Tylenol.
We will change his Pleurvac and dc his chest tube when we have a better assessment of his chest tube output.
Physician Progress Note
Subjective
He had an eventful night except for acute dyspnea. When I asked him several questions about his dyspnea, he told me that he �can�t breath� when using his right arm to push himself out of bed, which causes significant pain. Otherwise, he has minimal
dyspnea at rest. He denied chest pain. His intermittent pulse oxygen saturation is approximately 94% on 2 L.
Objective
Vital Signs
Temp Pulse Resp BP Pulse Ox
97.8 F 99 16 110/73 95
03/01/25 07:15 03/01/25 07:15 03/01/25 07:15 03/01/25 07:15 03/01/25 07:15
Lab Results
03/01/25 07:00
03/01/25 07:00
Pul � decreased BS bilaterally.
Chest tube without air leak. It�s hard to assess the output due to the Pleurvac getting tilted multiple times.
CXR from this morning remains the same, showing incomplete expansion of the right middle and lower lobes, moderate pneumothorax, opacities in the mediastinum with questionable middle lobe torsion.
[2025-03-01 08:14] LABS: Glucose - Point of Care 500 mg/dl (70-99)
[2025-03-01 08:59] LABS: Glucose 171 mg/dl (70-99)
[2025-03-01] MEDS: FLOMAX 0.4 MG PO (09:08)
[2025-03-01] MEDS: BUSPAR 5 MG PO ×2 (09:08→20:50)
[2025-03-01] MEDS: FARXIGA 10 MG PO (09:08)
[2025-03-01] MEDS: PROSCAR 5 MG PO (09:09)
[2025-03-01] MEDS: NORVASC 5 MG PO (09:09)
[2025-03-01] MEDS: NIASPAN TIME RELEASE 500 MG PO ×2 (09:09→20:51)
[2025-03-01] MEDS: COLACE 100 MG PO ×2 (09:09→20:50)
[2025-03-01] MEDS: HEPARIN 5000 UNITS SC ×2 (09:09→20:50)
[2025-03-01] MEDS: NEURONTIN 300 MG PO ×3 (09:10→21:46)
[2025-03-01] MEDS: NOVOLOG FLEXPEN-MODERATE RESISTANCE 1 UNITS SC ×2 (09:10→14:53)
--- NOTE | 2025-03-01 09:16 | W.PN.PUL3 ---
Today's Communication / Plan
-
Maintained on waterseal per surgery
Consider CT chest for re-eval if not improving
IS and ambulation encouraged
Pain management per team
Assessment
-
79-year-old male with a past medical history of SYDNEE, severe persistent asthma, right upper lobe lung cancer, history of colon polyps, DM type II, GERD, mixed hyperlipidemia, hypertension, CAD s/p CABG, and thyroid goiter s/p thyroid resection who
presents with elective lung surgery due to lung cancer. �Patient recently underwent CT-guided needle biopsy via interventional radiology on 12/21/2024, showing pulmonary adenocarcinoma which was well-moderately differentiated with a predominantly
lipidic pattern with focal acinar, micropapillary and papillary patterns. There was no PD-L1 expression and relevant biomarkers were not detected. PET/CT on 01/15/2025 showed stable medial right upper lobe apical subpleural nodule with minimal�mild
FDG avidity, with minimal increase in size of subpleural posterior right upper lobe nodule with slightly increased minimal�mild FDG avidity with no additional suspicious FDG avid lesions in the body. Patient underwent minimally invasive right upper
lobectomy, and was transferred to ICU postoperatively for further care. Wire Rope Sling Maker service consulted for additional management/recommendations.
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 Ortiz on 04/07/2024
Impression:
#Right upper lobe NSCLC s/p minimally invasive right upper lobe lobectomy � POD #2
#Leukocytosis - likely reactive and now normal WBC as of 02/28
#Hyponatremia (mild)
#DM type II v/b hyperglycemia (mild)
#Chronic cough � now resolved s/p surgery above
#History of severe persistent asthma/COPD on Breztri + Tezspire in office
Plan:
- Postoperative management as per surgical oncology
- Chest tube per surgery - currently on CWS
- Follow up path from OR
- Pain control
- Trend sNa
- Anti-tussants as needed
- Maintain SpO2 >90-94%, using supplemental O2 as needed
- Continue DuoNebs/budesonide
- Maintain MAP>65
- Replete electrolytes with K>4, Mg>2
- Maintain euglycemia with goal BG 140-180
- Trend H/H and transfuse if needed to keep Hb>7g/dL; keep plt>50k (given post-op status)
- prn nebulized bronchodilators
- Incentive spirometer encouraged 10x per hour for at least 4 hrs a day
- DVT ppx: HSQ
Pulmonary service will continue to follow along.
Total time spent today was 40 minute for this encounter. Time includes reviewing laboratory tests/imaging results, reviewing pertinent medical records, obtaining and reviewing medical history, performing an appropriate physical exam, ordering
medications, tests and procedures. Time also includes documentation of this encounter, coordinating patient care and communicating with other healthcare professionals. Total time does not include separately billed tests or procedures performed on
this date of service.
Subjective Data
-
Date of Service:
Date of Service: March 01, 2025
Chief Complaint: Pulmonary Follow Up
Subjective:
Doing well today, sitting in chair
Chest tube to waterseal
Objective Data
Data Reviewed
Vital Signs / I&O / Oxygen:
Vital Signs
Temp Pulse Resp BP Pulse Ox
97.8 F 99 16 110/73 95
03/01/25 07:15 03/01/25 07:15 03/01/25 07:15 03/01/25 07:15 03/01/25 07:15
Intake and Output
02/28/25 03/01/25 03/02/25
06:59 06:59 06:59
Intake Total 800 / 800 2015
Output Total 1570 / 1570 1925 / 192
Balance -770 / -770 91 / 91
SaO2 95
Nasal Cannula flow liters per 2
minute
Physical Exam
General: Respiratory Distress (n), Comfortable, Chills (n) and Sweats (n)
HEENT: Normocephalic and Anicteric
Cardiovascular: S1-S2 and Peripheral Edema (trace bilateral LE edema)
Respiratory: Wheeze (mild expiratory), Crackles (bilateral (R>L)), Rhonchi (bilateral (R>L)), Non-Labored Respirations, Stridor (n), Chest Tube (right-sided chest tube with air leak during cough, currently on waterseal) and Other (bubbling heard in
anterior hemithorax (right))
GI: Soft, Non Distended, Non Tender and Normal Bowel Sounds
Neurology: Awake, Alert and Tremors (n)
Skin: Warm, Dry, Cyanosis (n) and Jaundice (n)
Labs/Micro/Reports
Lab Data
03/01/25 07:00
03/01/25 08:26
[2025-03-01 11:48] VITALS: BP 142/63; BP 147/66; PULSE 95; O2SAT 97
[2025-03-01 12:53] LABS: Glucose - Point of Care 188 mg/dl (70-99)
--- NOTE | 2025-03-01 13:00 | PTCARENOTE ---
Patient had 11 beat run of VT. Now in Afib 114-140. Physician made aware. Patient is asymptomatic.
--- NOTE | 2025-03-01 13:35 | W.PN.HOSP.TC ---
Today's Communication/Plan
-
Chest tube care/removal once adequate numbers obtained
New onset Afib - cards consulted - defer rhythm v rate control and anticoagulation to cards/surg onc
Assessment / Plan
Assessment / Plan
Physical Exam
General: Obese, No Apparent Distress
HEENT: NormoCephalic, Anicteric and Moist mucous membranes
Respiratory: Coarse breath sounds and Chest Tube (R sided chest CT )
Cardiac: S1/S2 and Regular Rhythm
GI: Soft and Non Tender
Musculoskeletal: No Clubbing, No Cyanosis, Edema, Left Lower Extremity and Edema, Right Lower Extremity
Neuro: Awake
Psych: Calm
HPI: HPI: 79-year-old male with a past medical history of diabetes, hypertension, hyperlipidemia, obesity, SYDNEE, GERD, CAD status post CABG, and lung cancer status post right upper lobe resection 02/26/2025 presents with mild respiratory distress
after extubation postoperatively. Per report, patient was a difficult intubation for his surgery. He was extubated postoperatively, and has mild respiratory distress. He is currently requiring 4 L of oxygen. He does report shortness of breath.
Denies nausea. He also reports his right chest incisional pain is 9 out of 10 in intensity. No fever.
#Acute hypoxic respiratory insufficiency
#Mild respiratory distress postoperatively after extubation
#s/p minimally right upper lobectomy and mediastinal lymph node dissection POD #3
Wean o2 as tolerated
Continue bronchodilators, CPAP HS
02/28�patient short of breath, given Lasix 20 mg IV as recommended by Dr. Ortiz
Shortness of breath also due to pain from chest tube and surgery, continue pain medications prn
CT management as per CT Surg
Early ambulation
PT/OT
#Right-sided lung cancer
Status post right upper lobe resection 02/26/[address] Ortiz, follow-up on pathology results
Continue chest tube management as per Dr. Ortiz/pulmonology
#Atrial Fibrillation, new
-cards consulted
#Acute blood loss anemia
Secondary to surgery, trend hemoglobin
Will defer anticoag with new afib to Cardiology/Surg/Onc
#Leukocytosis
Likely reactive, patient is afebrile
#Hyponatremia
Mild, monitor
#Coronary artery disease status post CABG
Continue aspirin, statin
#Diabetes
Patient on Invokana at home. He is ordered Farxiga here. Hgb A1c 7.1
Continue carb controlled diet, sliding scale insulin
#Essential hypertension
Continue amlodipine, lisinopril
#Hyperlipidemia
Continue statin, niacin
#Obstructive sleep apnea
CPAP at bedtime
#Gastroesophageal reflux disease
Continue PPI, H2 kina
#BPH
Cerda removed 02/27, he is voiding
Continue finasteride, added Flomax, continue bladder scan protocol
#Anxiety
Continue BuSpar
#Obesity due to excess calories
Affects all aspects of care
DVT prophylaxis�subcu heparin as per surgical oncology
Full code
Total time spent on today's encounter was 51 minutes which included time spent in counseling the patient/family regarding diagnosis and treatment plan as listed above, goals of care, and symptom management. Case was discussed with nursing staff,
specialists, and care coordinators/case management. All labs and imaging personally reviewed by me. Remainder the time spent in detailed review of previous records, lab data, imaging, and other medical provider documentation.
Anticipated Discharge: > 48 hours
Subjective/Interval History
-
Date of Service: March 01, 2025
Went into Afib today; otherwise stable resp status
Objective Data
-
Labs:
Laboratory Results
03/01/25 03/01/25
07:00 08:26
WBC 7.1
Hgb 13.1
Hct 38.8 L
Plt Count 151
Sodium 134 L
Potassium 3.9
Chloride 98
Carbon Dioxide 30
BUN 26 H
Creatinine 0.8
Glucose 170 H 171 H
Calcium 9.0
Vital Signs:
Vital Signs
Temp Pulse Resp BP Pulse Ox
97.8 F 83 16 110/73 97
03/01/25 07:15 03/01/25 12:02 03/01/25 12:02 03/01/25 07:15 03/01/25 12:02
I&O
02/28/25 03/01/25 03/02/25
06:59 06:59 06:59
Intake Total 800 / 800 2015
Output Total 1570 / 1570 1925 / 1925 375 / 375
Balance -770 / -770 91 / 91 -375 / -375
Review of Systems
-
History Source: Patient
All other systems: Not reviewed unless documented
Constitutional: Reports No Symptoms; Denies Fever
EENT: Reports No Symptoms Reported
Respiratory: Reports No Symptoms
Cardiac: Reports No Symptoms
Abdomen/GI: Reports No Symptoms
Genitourinary: Reports No Symptoms
Neuro: Reports Dizzy; Denies Headache, Weakness, Numbness or Seizures
Hematologic / Lymphatic: Reports No Symptoms
Physical Exam
-
General: No Apparent Distress and Comfortable
HEENT: Moist Mucous Membranes; Negative Oxygen
Respiratory: Clear to Auscultation
Cardiac: Regular Rhythm and S1/S2; Negative Murmur or Rub
GI: Soft, Nontender, Nondistended and Normal Bowel Sounds
Musculoskeletal: No Edema
Skin: Warm
Neuro: Awake, Alert, Oriented, No Motor Deficits and Nonfocal/Grossly Intact
Psych: Calm and Intact Judgement/Insight
Data Reviewed
-
Diagnostic Radiology: Image personally visualized and interpreted, Report Reviewed by me and Discussed with Physician
CT Scan: Image personally visualized and interpreted, Report Reviewed by me and Discussed with Physician
Labs: Labs Reviewed by me and Discussed with Physician
Old Records: Reviewed
[2025-03-01 13:38] VITALS: BP 142/63; BP 147/66; PULSE 95; O2SAT 97
--- NOTE | 2025-03-01 14:50 | CM ---
Chart reviewed; anticipated discharge > 48 hours
Case Management will continue to monitor for disposition needs and support when identified
[2025-03-01 15:20] VITALS: BP 163/93
--- NOTE | 2025-03-01 15:25 | CON.CAR ---
Addendum entered and electronically signed by Chiquis Dia MD 03/01/25 17:20:
I saw and examined the patient.
The Network Lead's note was reviewed and I agree with the note.
Comment: Art is a 79-year-old gentleman with past medical history of coronary artery disease status post coronary artery bypass grafting with 2 grafts, RCA PCI subsequently, hypertension, hyperlipidemia, obstructive sleep apnea, not compliant
with CPAP, type 2 diabetes mellitus, paroxysmal atrial tachycardia, GERD, IBS, lung cancer status post right upper lobe lobectomy with lymph node dissection for adenocarcinoma of the lung on February 26, 2025 and today was noted to go from sinus
rhythm into atrial fibrillation with RVR. He reports no associated symptoms. Denies any heart racing, palpitations, dizziness or lightheadedness. He also denies any chest discomfort or shortness of breath. No significant lower extremity edema.
He takes very shallow breaths due to discomfort with deep breaths in the setting of a chest tube still in place. We are being consulted for evaluation and management of new onset atrial fibrillation. Patient does not report any bleeding
complications
On exam patient is out of bed in a chair, flat affect, very poor historian, awake, alert and oriented x 3, irregularly irregular heart rhythm, normal S1 and S2, no murmurs, rubs or gallops, no carotid bruit, mildly elevated JVD daily, decreased
breath sounds at bilateral bases, chest tube is in place draining serosanguineous fluid, abdomen is soft, nontender, nondistended with active bowel sounds, warm extremities without significant edema
Recommendations:
1. New onset atrial fibrillation with [id number] of at least 4 warranting long-term full anticoagulation. Discussed with surgery for now we will hold off while the chest tube is in place and plan to reassess on a daily basis on when patient may
be appropriate to initiate heparin prior to Eliquis as long as he tolerates the heparin.
2. Will add low-dose beta-kina for overall heart rate control and closely monitor on telemetry.
3. Will make sure he has had a recent thyroid function test and we will check an echocardiogram to assess biventricular function and rule out any significant valvular abnormalities given his prior 1 was more than a year ago.
4. Outpatient assessment and importance of compliance with CPAP for SYDNEE. Educated in regards to alcohol abstinence, association of alcohol use, physical and activity, heavy meals and obesity with increased prevalence of paroxysmal atrial
fibrillation and risk of stroke associated with that
Chiquis Dia MD, [facility], [facility]
[id number]
Original Note:
Consultation
Consultation Request
Date/Time Consultation Requested: 03/01/2025
Date/Time Consultation Performed: 03/01/2025
Requesting Provider: Dr. Toure
Performing Provider: Ju Schaeffer PA-C for Dr. Dia
Reason for Consultation: New Afib
Medical History
-
Chief Complaint: weakness
History of Present Illness:
HPI: Art is an 79 year old male with PMH of CAD s/p CABG x 2, RCA PCI, lung cancer, HTN, HLD, SYDNEE, DM2, PAT, GERD, and IBS who presented to [facility] for right upper lobe lobectomy with lymph node dissection for adenocarcinoma of the lung. He had
successful surgery on 02/26, and today, 03/01 was noted to go into rapid atrial fibrillation which is a new diagnosis. He reports no symptoms with this and denies palpitations, dizziness, lightheadedness, or SOB. No chest pain other than post-op
pain. He has no known history of atrial fibrillation, although on prior monitors has been noted to have atrial tachycardia. Cardiology consulted for evaluation. Remains in atrial fibrillation on review of telemetry with HR in the 100s.
PMH:
CAD
s/p CABG x 2 in 1995 at OSH
s/p RCA PCI x2 1999
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
Lung Cancer
Hypertension
Hyperlipidemia
SYDNEE, previously on CPAP, however recently noncompliant
Type 2 diabetes
Paroxysmal atrial tachycardia
GERD
IBS
Daily alcohol use
Obesity
Former smoker
Past Medical History
Past Medical History: Other (in HPI)
Social History
Tobacco: Former Smoker
Alcohol: Daily (2 shots of vodka)
Living: Alone
Family History
Family History: Reviewed & Not Pertinent
Allergies / Home Medications
Allergy/AdvReac Type Severity Reaction Status Date / Time
iodine Allergy Rash Verified 02/26/25 16:16
Sulfa (Sulfonamide Allergy Swelling Verified 02/26/25 10:04
Antibiotics)
�Medication �Instructions �Recorded �Confirmed �Type
canagliflozin 100 mg tablet 300 mg PO DAILY Diabetes 04/13/19 02/26/25 History
(Invokana)
multivitamin with folic acid 400 1 tab PO DAILY Supplement 04/13/19 02/26/25 History
mcg tablet (Tab-A-Fabi)
amlodipine 2.5 mg tablet 2.5 mg PO DAILY Blood pressure #30 10/01/23 02/26/25 Rx
tabs
buspirone 5 mg tablet 5 mg PO BID Mental Health/Anxiety 03/02/24 02/26/25 History
famotidine 40 mg tablet 40 mg PO HS Gastrointestinal Issue 03/02/24 02/26/25 History
finasteride 5 mg tablet 5 mg PO DAILY Urinary Issue 03/02/24 02/26/25 History
lisinopril 5 mg tablet 5 mg PO HS Blood pressure 03/02/24 02/26/25 History
pantoprazole 40 mg tablet,delayed 40 mg PO HS Gastrointestinal Issue 03/02/24 02/26/25 History
release
aspirin 81 mg capsule 81 mg PO DAILY Blood Clot 04/03/24 02/26/25 History
Prevention/Tx
niacin 500 mg tablet,extended 500 mg PO BID Supplement 04/03/24 02/26/25 History
release 24 hr
wheat dextrin 1 gram tablet 1 g PO DAILY Supplement 04/03/24 02/26/25 History
(Benefiber (wheat dextrin))
simvastatin 10 mg tablet 10 mg PO HS High Cholesterol 07/29/24 02/26/25 History
albuterol sulfate 90 mcg/actuation 2 inh inhalation Q6H PRN shortness 08/29/24 02/26/25 Rx
breath activated powder inhaler of breath or wheezing #1 ea
tezepelumab-ekko 210 mg/1.91 mL 210 mg SC Q4W Lung/Breathing Issues 02/19/25 02/27/25 History
(110 mg/mL) subcutaneous syringe
(Tezspire)
Review of Systems
-
History Source: Patient
All other systems: Negative unless noted
Physical Exam
Vital Signs
Temp Pulse Resp BP Pulse Ox
97.8 F 83 16 110/73 97
03/01/25 07:15 03/01/25 12:02 03/01/25 12:02 03/01/25 07:15 03/01/25 12:02
Lab Results
03/01/25 07:00
03/01/25 08:26
Nkd-T-Uxgjqudutvq Pept 243 pg/ml 02/08/25 09:50
Physical Exam
General: Well Developed, Well Nourished and No Apparent Distress
HEENT: Normocephalic, Anicteric and Moist Mucous Membranes
Respiratory: Non Labored Respirations
Cardiac: S1/S2 and Irregular Rhythm
Musculoskeletal: No Clubbing, No Cyanosis and No Edema
Skin: Warm and Dry
Neuro: AO x 3 and Nonfocal/Grossly Intact
Psych: Calm
Impression / Plan
-
PCP: Dr. Graff
Auto Dealer: Dr. Pablo
Impression:
Presented for R upper lobe lobectomy 02/26/2025
New onset atrial fibrillation
CAD
s/p CABG x 2 in 1995 at OSH
s/p RCA PCI x2 1999
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
Lung Cancer
Hypertension
Hyperlipidemia
SYDNEE, previously on CPAP, however recently noncompliant
Type 2 diabetes
Paroxysmal atrial tachycardia
GERD
IBS
Daily alcohol use
Obesity
Former smoker
Echo 09/16/2023: EF 55-60%, trace MR, Trace TR
Echo 03/01/2025: Study pending
Plan:
-Underwent R upper lobe lobectomy 02/26/2025 w/ Dr. Ortiz. Recovering. Chest tube in place.
-Noted to go into atrial fibrillation today, 03/01. New diagnosis.
-HRs slightly elevated. Will start low dose Toprol 25mg daily for rate control.
-CHADSVASc score 5 (Age, HTN, CAD, DM). Will need to start anticoagulation eventually. Will reach out to surgery team to see when they would feel OK to start IV heparin or Eliquis 5mg BID.
-Check echo
-Check TSH. K 3.9.
-Daily ETOH use noted. Discussed this is a potential trigger and should cut back/eliminate alcohol consumption.
-BP stable on lisinopril, amlodipine. Continue for now.
HPI: Art is an 79 year old male with PMH of CAD s/p CABG x 2, RCA PCI, lung cancer, HTN, HLD, SDYNEE, DM2, PAT, GERD, and IBS who presented to [facility] for right upper lobe lobectomy with lymph node dissection for adenocarcinoma of the lung. He had
successful surgery on 02/26, and today, 03/01 was noted to go into rapid atrial fibrillation which is a new diagnosis. He reports no symptoms with this and denies palpitations, dizziness, lightheadedness, or SOB. No chest pain other than post-op
pain. He has no known history of atrial fibrillation, although on prior monitors has been noted to have atrial tachycardia. Cardiology consulted for evaluation. Remains in atrial fibrillation on review of telemetry with HR in the 100s.
Data Reviewed
-
EKG: Tracing Personally Visualized and interpreted
Radiology: Report Reviewed by me
Labs: Labs Reviewed by me
Old Records: Reviewed
[2025-03-01] MEDS: TOPROL XL 25 MG PO (16:42)
[2025-03-01 16:43] LABS: Glucose - Point of Care 261 mg/dl (70-99)
[2025-03-01] MEDS: NOVOLOG FLEXPEN-MODERATE RESISTANCE 5 UNITS SC (16:43)
[2025-03-01 19:35] VITALS: BP 133/62
[2025-03-01 21:44] LABS: Glucose - Point of Care 180 mg/dl (70-99)
[2025-03-01] MEDS: ZESTRIL 5 MG PO (21:45)
[2025-03-01] MEDS: PEPCID 40 MG PO (21:46)
[2025-03-01] MEDS: PROTONIX 40 MG PO (21:46)
[2025-03-01] MEDS: LIPITOR 10 MG PO (21:46)
[2025-03-01 23:20] VITALS: BP 139/74
[2025-03-02] MEDS: ZOFRAN 4 MG IV (01:30)
[2025-03-02 03:10] VITALS: BP 122/53
[2025-03-02] MEDS: TYLENOL 650 MG PO ×6 (03:15→23:18)
[2025-03-02] MEDS: TORADOL 15 MG IV ×4 (06:20→23:19)
[2025-03-02 07:30] VITALS: BP 118/56
[2025-03-02 07:36] LABS: Glucose - Point of Care 162 mg/dl (70-99)
[2025-03-02] MEDS: DUONEB 3 ML INH ×3 (07:48→21:05)
[2025-03-02] MEDS: PULMICORT 0.5 MG INH ×2 (07:48→21:05)
[2025-03-02 08:28] LABS: Hematocrit 39.3 % (39.0-52.0); Hemoglobin 13.4 g/dL (13.0-18.0); Mean Corp Hgb Conc. 34.1 g/dL (33.0-37.0); Mean Corpuscular Volume 94.5 fL (80.0-94.0); Platelet Count 179 10^3/uL (130-400); Red Cell Dist. Width 13.2 % (11.5-14.5)
[2025-03-02 08:46] LABS: Blood Urea Nitrogen 27 mg/dl (9-20); Calcium 9.2 mg/dl (8.4-10.2); Carbon Dioxide 29 mmol/L (22-30); Chloride 97 mmol/L (98-107); Estimated Creatinine Clearance 84 ml/min; Glucose 161 mg/dl (70-99); Potassium 4.5 mmol/L (3.5-5.1); Sodium 131 mmol/L (135-145); eGFR > 60.00
--- NOTE | 2025-03-02 09:03 | W.PN.CARDCBS ---
Addendum entered and electronically signed by Graham Romo MD 03/02/25 12:27:
79-year-old man who underwent minimally invasive thoracotomy and right upper lobe lobectomy with lymph node dissection on February 26 and developed postoperative atrial fibrillation, a new diagnosis
PMH/PSH: CAD/status post CABG 1995, PCI 1999, hypertension, hyperlipidemia, sleep apnea, diabetes, right bundle branch block and left anterior fascicular block, goiter, paroxysmal atrial tachycardia, severe persistent asthma/COPD and PVCs
Current meds: BuSpar 5 mg twice daily, Pepcid 40 mg at bedtime, Proscar 5 mg a day, lisinopril 5 mg at bedtime, Niaspan 500 twice daily, pantoprazole 40 nightly, atorvastatin 10 nightly, amlodipine 5 daily, dapagliflozin 10 mg daily, subcu heparin,
acetaminophen, Neurontin, Colace, Flomax, DuoNebs, Toradol, Pulmicort, metoprolol ER 25 mg a day
118/56, pulse 82, afebrile, sats are 97%, weight is 106.2 kg on the , currently receiving neb treatments, lungs are surprisingly clear, regular rate and rhythm, no murmurs, chronic edema lower extremities,
Hemoglobin is 13.4, white count is 6.8, sodium is 131, potassium is 4.5, BUN and creatinine are 27 and 0.8
ECG yesterday atrial fibrillation, right bundle branch block, left anterior fascicular block, LVH, PVCs versus aberrantly ventricular conduction and specific ST and T changes
Impression:
Paroxysmal atrial fibrillation, now in sinus rhythm
Status post right upper lobe lobectomy 03/01/2025
Other diagnoses as below, reviewed in detail and agree unless otherwise specified
Plan:
He has converted to normal sinus rhythm spontaneously.
Will await echocardiogram.
Would be reasonable to start anticoagulation when safe from a surgical standpoint, but given that he has converted to sinus rhythm importance of this is somewhat reduced.
Continue metoprolol ER.
We will continue to follow
Original Note:
Today's Communication / Plan
-
Remains in rate controlled A-fib on telemetry, continue Toprol XL 25 mg daily that was started yesterday
Eventually start OAC once safe from a postsurgical standpoint
Echo today
Impression / Plan
-
PCP: Dr. Graff
Hot Stone Setter: Dr. Pablo
Impression:
Presented for right upper lobe lobectomy for right sided lung cancer 02/26/2025
New onset atrial fibrillation 03/01/2025
CAD
s/p CABG x 2 in 1995 at OSH
s/p RCA PCI x2 1999
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
Lung Cancer
Hypertension
Hyperlipidemia
SYDNEE, previously on CPAP, however recently noncompliant
Type 2 diabetes
Paroxysmal atrial tachycardia
GERD
IBS
Daily alcohol use
Obesity
Former smoker
Hyponatremia
Echo 09/16/2023: EF 55-60%, trace MR, Trace TR
Echo 03/02/2025: Study pending
Plan:
-Patient underwent R upper lobe lobectomy for lung cancer 02/26/2025 w/ Dr. Ortiz. Recovering. Chest tube in place. Cardiology consulted for new diagnosis of A-fib on 03/01/2025.
-Telemetry reviewed by me on 03/02/2025 and patient remains in rate controlled atrial fibrillation. Toprol XL 25 mg daily was added on 03/01/2025.
-Plan for now is rate control given inability to anticoagulate and patient is asymptomatic with his A-fib.
-Patient has a [id number] score of 5 and should be started on OAC when safe from a postsurgical standpoint.
-Chest tube remains in place with ongoing drainage. Patient reports surgical team to decide total 1625 on possible chest tube removal.
-Check echo, order confirmed by me and study to be performed on 03/02/2025
-TSH normal 1.13
-Daily ETOH use prior to admission noted. Patient reports that he is 79 years old and will do what he would like to do, but was receptive to the discussion that EtOH use is a potential trigger and should cut back/eliminate alcohol consumption.
-Outpatient dose of amlodipine 2.5 mg daily has been continued
-Outpatient dose of lisinopril 5 mg HS has been continued
-Labs reviewed by me 03/02/2025 and sodium level is down to 131
-Patient was given a dose of Lasix 20 mg IV x 1 on 02/28/2025 for symptoms of SOB as recommended by surgery service, no evidence of acute HF.
HPI: Art is an 79 year old male with PMH of CAD s/p CABG x 2, RCA PCI, lung cancer, HTN, HLD, SYDNEE, DM2, PAT, GERD, and IBS who presented to [facility] for right upper lobe lobectomy with lymph node dissection for adenocarcinoma of the lung. He had
successful surgery on 02/26, and today, 03/01 was noted to go into rapid atrial fibrillation which is a new diagnosis. He reports no symptoms with this and denies palpitations, dizziness, lightheadedness, or SOB. No chest pain other than post-op
pain. He has no known history of atrial fibrillation, although on prior monitors has been noted to have atrial tachycardia. Cardiology consulted for evaluation. Remains in atrial fibrillation on review of telemetry with HR in the 100s.
Progress Note - Hot Stone Setter
Subjective
Date of Service: March 02, 2025
Patient has right axillary pain which he attributes to chest tube, no palpitation
Objective
Labs:
03/02/25 07:58
03/02/25 07:58
Labs
Hgb 13.4 g/dL (13.0-18.0) 03/02/25 07:58
Hct 39.3 % (39.0-52.0) 03/02/25 07:58
Plt Count 179 10^3/uL (130-400) 03/02/25 07:58
PT 14.9 Sec (11.4-14.6) H 02/26/25 21:56
INR 1.16 02/26/25 21:56
APTT 31.0 Sec (23.4-35.0) 02/26/25 21:56
Sodium 131 mmol/L (135-145) L 03/02/25 07:58
Potassium 4.5 mmol/L (3.5-5.1) 03/02/25 07:58
BUN 27 mg/dl (9-20) H 03/02/25 07:58
Creatinine 0.8 mg/dL (0.7-1.3) 03/02/25 07:58
Glucose 161 mg/dl (70-99) H 03/02/25 07:58
Vital Signs and I&O:
Vital Signs
Temp Pulse Resp BP Pulse Ox
97.6 F 82 18 118/56 97
03/02/25 07:30 03/02/25 07:53 03/02/25 07:53 03/02/25 07:30 03/02/25 07:53
Vital Signs
Temp Pulse Resp BP Pulse Ox
97.6 F 82 18 118/56 97
03/02/25 07:30 03/02/25 07:53 03/02/25 07:53 03/02/25 07:30 03/02/25 07:53
Intake & Output
02/28/25 03/01/25 03/02/25 03/03/25
06:59 06:59 06:59 06:59
Intake Total 800 / 800 2015 480 / 480 480 / 480
Output Total 1570 / 1570 1925 / 1925 1490 / 1570 80 / 80
Balance -770 / -770 91 / 91 -1010 / -1090 400 / 400
Physical Exam
Physical Exam
GEN: NAD, AAO x 3
LUNGS: 2 L NC. Clear anterolaterally without wheeze
CV: A-fib that is rate controlled on telemetry. Irreg, S1/S2, no murmur
EXT: No edema B/L LE
NEURO: Gross non-focal
SKIN: No rash
--- NOTE | 2025-03-02 09:20 | W.PN.PUL3 ---
Today's Communication / Plan
-
Chest tube to waterseal, likely discontinued today per team
Chest x-rays remain stable
Follows with Dr. Menard, can follow-up as outpatient
Discharge planning per team
Assessment
-
79-year-old male with a past medical history of SYDNEE, severe persistent asthma, right upper lobe lung cancer, history of colon polyps, DM type II, GERD, mixed hyperlipidemia, hypertension, CAD s/p CABG, and thyroid goiter s/p thyroid resection who
presents with elective lung surgery due to lung cancer. �Patient recently underwent CT-guided needle biopsy via interventional radiology on 12/21/2024, showing pulmonary adenocarcinoma which was well-moderately differentiated with a predominantly
lipidic pattern with focal acinar, micropapillary and papillary patterns. There was no PD-L1 expression and relevant biomarkers were not detected. PET/CT on 01/15/2025 showed stable medial right upper lobe apical subpleural nodule with minimal�mild
FDG avidity, with minimal increase in size of subpleural posterior right upper lobe nodule with slightly increased minimal�mild FDG avidity with no additional suspicious FDG avid lesions in the body. Patient underwent minimally invasive right upper
lobectomy, and was transferred to ICU postoperatively for further care. Load Dropper service consulted for additional management/recommendations.
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 Ortiz on 04/07/2024
Impression:
#Right upper lobe NSCLC s/p minimally invasive right upper lobe lobectomy � POD #2
#Leukocytosis - likely reactive and now normal WBC as of 02/28
#Hyponatremia (mild)
#DM type II v/b hyperglycemia (mild)
#Chronic cough � now resolved s/p surgery above
#History of severe persistent asthma/COPD on Breztri + Tezspire in office
Plan:
- Postoperative management as per surgical oncology
- Chest tube per surgery - currently on CWS--likely to discontinue today
- Follow up path from OR
- Pain control
- Trend sNa
- Anti-tussants as needed
- Maintain SpO2 >90-94%, using supplemental O2 as needed
- Continue DuoNebs/budesonide
- Maintain MAP>65
- Replete electrolytes with K>4, Mg>2
- Maintain euglycemia with goal BG 140-180
- Trend H/H and transfuse if needed to keep Hb>7g/dL; keep plt>50k (given post-op status)
- prn nebulized bronchodilators
- Incentive spirometer encouraged 10x per hour for at least 4 hrs a day
- DVT ppx: HSQ
Pulmonary service will continue to follow along.
Total time spent today was 40 minute for this encounter. Time includes reviewing laboratory tests/imaging results, reviewing pertinent medical records, obtaining and reviewing medical history, performing an appropriate physical exam, ordering
medications, tests and procedures. Time also includes documentation of this encounter, coordinating patient care and communicating with other healthcare professionals. Total time does not include separately billed tests or procedures performed on
this date of service.
Subjective Data
-
Date of Service:
Date of Service: March 02, 2025
Chief Complaint: Pulmonary Follow Up
Subjective:
No new complaints, sitting in chair
Chest tube to waterseal
Objective Data
Data Reviewed
Vital Signs / I&O / Oxygen:
Vital Signs
Temp Pulse Resp BP Pulse Ox
97.6 F 82 18 118/56 97
03/02/25 07:30 03/02/25 07:53 03/02/25 07:53 03/02/25 07:30 03/02/25 07:53
Intake and Output
03/01/25 03/02/25 03/03/25
06:59 06:59 06:59
Intake Total 2015 480 / 480 480 / 480
Output Total 1925 / 1925 1490 / 1570 80 / 80
Balance 91 / 91 -1010 / -1090 400 / 400
SaO2 97
Nasal Cannula flow liters per 2
minute
Physical Exam
General: Respiratory Distress (n), Comfortable, Chills (n) and Sweats (n)
HEENT: Normocephalic and Anicteric
Cardiovascular: S1-S2 and Peripheral Edema (trace bilateral LE edema)
Respiratory: Wheeze (mild expiratory), Crackles (bilateral (R>L)), Rhonchi (bilateral (R>L)), Non-Labored Respirations, Stridor (n), Chest Tube (right-sided chest tube with air leak during cough, currently on waterseal) and Other (bubbling heard in
anterior hemithorax (right))
GI: Soft, Non Distended, Non Tender and Normal Bowel Sounds
Neurology: Awake, Alert and Tremors (n)
Skin: Warm, Dry, Cyanosis (n) and Jaundice (n)
Labs/Micro/Reports
Lab Data
03/02/25 07:58
03/02/25 07:58
--- NOTE | 2025-03-02 09:30 | PTCARENOTE ---
Patient now in a SR, 1st AVB, with PAC, HR 67. Cardiology already aware.
[2025-03-02] MEDS: NOVOLOG FLEXPEN-MODERATE RESISTANCE 1 UNITS SC ×3 (10:29→18:16)
[2025-03-02] MEDS: NORVASC 5 MG PO (10:30)
[2025-03-02] MEDS: PROSCAR 5 MG PO (10:30)
[2025-03-02] MEDS: NIASPAN TIME RELEASE 500 MG PO ×2 (10:30→20:29)
[2025-03-02] MEDS: BUSPAR 5 MG PO ×2 (10:30→20:29)
[2025-03-02] MEDS: FARXIGA 10 MG PO (10:30)
[2025-03-02] MEDS: TOPROL XL 25 MG PO (10:30)
[2025-03-02] MEDS: NEURONTIN 300 MG PO ×3 (10:31→21:29)
[2025-03-02] MEDS: FLOMAX 0.4 MG PO (10:31)
[2025-03-02] MEDS: HEPARIN 5000 UNITS SC ×2 (10:31→20:25)
[2025-03-02] MEDS: COLACE 100 MG PO ×2 (10:31→20:29)
[2025-03-02 11:15] VITALS: BP 129/54
[2025-03-02 11:54] LABS: Glucose - Point of Care 175 mg/dl (70-99)
[2025-03-02 12:07] LABS: Troponin I 0.118 ng/ml
--- NOTE | 2025-03-02 12:21 | OR.RPT ---
Operative Report
Operative Report
Date of Operation: February 26, 2025
Preoperative Diagnosis: Right upper lobe lung cancer - [id number]
Postoperative Diagnosis: Same
Surgeon: Raymond Ortiz M.D.
Operation: Minimally invasive wedge resection of right upper lobe tumors x 2, right upper lobectomy, and mediastinal lymph node dissection - [id number]
Anesthesia: Double-lumen endotracheal anesthesia
Estimated Blood Loss: 100 cc
Drains: 33F chest tube in the right chest
Specimen: Right upper lobe anterior tumor, right upper lobe posterior tumor, right upper lobe, and mediastinal lymph nodes
Findings: Multifocal cancer in the right upper lobe. Difficult intubation
Complications: None
Procedure:
The patient was taken to the operating room and placed in the usual supine position. It took about an hour to place a double-lumen tube due to his anatomy, as per the anesthesia team. After an adequate double-lumen endotracheal tube was placed, the
patient was positioned in the left decubitus position with the right chest up. The right chest was prepped and draped in the usual sterile fashion. At this time, a 6 cm mid-axillary incision was made with a #10 blade, and this was taken through the
skin into the subcutaneous tissue. The serratus anterior muscle overlying the 5th intercostal space was identified and split along the course of the muscle fibers. The intercostal muscle of the fifth intercostal space was divided, and the left chest
was entered. The left chest was explored. The tumors in the anterior and posterior aspects of the apex of the right upper lobe were identified.
First, the anterior tumor, which was biopsied preoperatively and showed inflammatory cells, was wedge resected and sent to the pathology department for evaluation, which revealed adenocarcinoma. Since this represented the second cancer in the right
upper lobe, a decision was made to proceed with right upper lobectomy, as I discussed with the patient and his family.
The fissures the right upper lobe from the middle and lower lobes were completed using Ligasure and EndoGIA purple tri-stapler. The left pulmonary artery branches to the right upper lobe were identified, carefully dissected, ligated, and
divided with an EndoGIA gold vascular stapler. The right superior vein draining the right upper lobe was identified, carefully dissected, transected, and ligated with an EndoGIA vascular gold stapler. The bronchus was dissected, transected, and
divided with an EndoGIA purple stapler. The left upper lobe was removed and sent to pathology for a permanent section. At this time, mediastinal lymph node dissection was performed. The lymph nodes from stations 3 to 10 were taken and sent to
pathology for permanent section. Hemostasis was obtained. A 33 Slovenian chest tube was placed through the anterior thoracostomy incision and anchored to the skin using a #2 nylon suture. The ribs were re-approximated with 1 Vicryl in the transcostal
fascia. The serratus anterior muscle was also re-approximated with 1 Vicryl in a running fashion. The fascia was approximated with 1 Vicryl in a running fashion. The subcutaneous tissue was re-approximated with 3-0 Vicryl in a running fashion. The
skin was approximated with 4-0 Monocryl in a running subcuticular fashion. Steri-strips and a sterile dressing were placed. The chest tube was connected to the Pleurovac. The patient was placed back in the supine position and extubated without any
problems. The final needle, sponge, and instrument counts were correct. The patient was transferred to the recovery room.
--- NOTE | 2025-03-02 13:06 | W.PN.HOSP.TC ---
Today's Communication/Plan
-
ECHO
Surg recs for Chest tube
Cont Toprol
No Chest pain with Elevated Trop- f/u cards and ECHO
Fluid restriction
Assessment / Plan
Assessment / Plan
Physical Exam
General: Obese, No Apparent Distress
HEENT: NormoCephalic, Anicteric and Moist mucous membranes
Respiratory: Coarse breath sounds and Chest Tube (R sided chest CT )
Cardiac: S1/S2 and Regular Rhythm
GI: Soft and Non Tender
Musculoskeletal: No Clubbing, No Cyanosis, Edema, Left Lower Extremity and Edema, Right Lower Extremity
Neuro: Awake
Psych: Calm
HPI: HPI: 79-year-old male with a past medical history of diabetes, hypertension, hyperlipidemia, obesity, SYDNEE, GERD, CAD status post CABG, and lung cancer status post right upper lobe resection 02/26/2025 presents with mild respiratory distress
after extubation postoperatively. Per report, patient was a difficult intubation for his surgery. He was extubated postoperatively, and has mild respiratory distress. He is currently requiring 4 L of oxygen. He does report shortness of breath.
Denies nausea. He also reports his right chest incisional pain is 9 out of 10 in intensity. No fever.
#Acute hypoxic respiratory insufficiency
#Mild respiratory distress postoperatively after extubation
#s/p minimally right upper lobectomy and mediastinal lymph node dissection POD #3
Wean o2 as tolerated
Continue bronchodilators, CPAP HS
02/28�patient short of breath, given Lasix 20 mg IV as recommended by Dr. Ortiz
Shortness of breath also due to pain from chest tube and surgery, continue pain medications prn
CT management as per CT Surg - possible removal today
Early ambulation
PT/OT
#Right-sided lung cancer
Status post right upper lobe resection 02/26/[address] Ortiz, follow-up on pathology results
Continue chest tube management as per Dr. Ortiz/pulmonology
#Atrial Fibrillation, new
-converted to Sinus
-Cont Toprol
-ECHO
-Anticoagulation once cleared by surgery
#Non Ischemic Myocardial Injury
-most likely 2/2 to Afib with Chest tube
-no chest pain
-Cards on board
-F/u ECHO
#Hyponatremia
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
-FWR
-Monitor Na
#Acute blood loss anemia
Secondary to surgery, trend hemoglobin
Will defer anticoag with new afib to Cardiology/Surg/Onc
Anticoag once cleared by Surgery
#Leukocytosis
Likely reactive, patient is afebrile
#Coronary artery disease status post CABG
Continue aspirin, statin
#Diabetes
Patient on Invokana at home. He is ordered Farxiga here. Hgb A1c 7.1
Continue carb controlled diet, sliding scale insulin
#Essential hypertension
Continue amlodipine, lisinopril
#Hyperlipidemia
Continue statin, niacin
#Obstructive sleep apnea
CPAP at bedtime
#Gastroesophageal reflux disease
Continue PPI, H2 kina
#BPH
Cerda removed 02/27, he is voiding
Continue finasteride, added Flomax, continue bladder scan protocol
#Anxiety
Continue BuSpar
#Obesity due to excess calories
Affects all aspects of care
DVT prophylaxis�subcu heparin as per surgical oncology
Full code
Total time spent on today's encounter was 51 minutes which included time spent in counseling the patient/family regarding diagnosis and treatment plan as listed above, goals of care, and symptom management. Case was discussed with nursing staff,
specialists, and care coordinators/case management. All labs and imaging personally reviewed by me. Remainder the time spent in detailed review of previous records, lab data, imaging, and other medical provider documentation.
Anticipated Discharge: 24 - 48 hours
Subjective/Interval History
-
Date of Service: March 02, 2025
Converted to sinus rhythm spontaneously
Objective Data
-
Labs:
Laboratory Results
03/02/25
07:58
WBC 6.8
Hgb 13.4
Hct 39.3
Plt Count 179
Sodium 131 L
Potassium 4.5
Chloride 97 L
Carbon Dioxide 29
BUN 27 H
Creatinine 0.8
Glucose 161 H
Calcium 9.2
Vital Signs:
Vital Signs
Temp Pulse Resp BP Pulse Ox
98 F 69 16 129/54 99
03/02/25 11:15 03/02/25 11:15 03/02/25 11:15 03/02/25 11:15 03/02/25 11:15
I&O
03/01/25 03/02/25 03/03/25
06:59 06:59 06:59
Intake Total 2015 480 / 480 480 / 480
Output Total 1924 1490 / 1570 80 / 80
Balance 91 / 91 -1010 / -1090 400 / 400
Review of Systems
-
History Source: Patient
All other systems: Not reviewed unless documented
Constitutional: Reports No Symptoms; Denies Fever
EENT: Reports No Symptoms Reported
Respiratory: Reports No Symptoms
Cardiac: Reports No Symptoms
Abdomen/GI: Reports No Symptoms
Genitourinary: Reports No Symptoms
Neuro: Reports Dizzy; Denies Headache, Weakness, Numbness or Seizures
Hematologic / Lymphatic: Reports No Symptoms
Physical Exam
-
General: No Apparent Distress and Comfortable
HEENT: Moist Mucous Membranes; Negative Oxygen
Respiratory: Clear to Auscultation
Cardiac: Regular Rhythm and S1/S2; Negative Murmur or Rub
GI: Soft, Nontender, Nondistended and Normal Bowel Sounds
Musculoskeletal: No Edema
Skin: Warm
Neuro: Awake, Alert, Oriented, No Motor Deficits and Nonfocal/Grossly Intact
Psych: Calm and Intact Judgement/Insight
Data Reviewed
-
Diagnostic Radiology: Image personally visualized and interpreted, Report Reviewed by me and Discussed with Physician
CT Scan: Image personally visualized and interpreted, Report Reviewed by me and Discussed with Physician
Labs: Labs Reviewed by me and Discussed with Physician
Old Records: Reviewed
[2025-03-02] MEDS: LASIX 20 MG IV (13:10)
[2025-03-02] MEDS: DUONEB INH (14:35)
--- NOTE | 2025-03-02 14:44 | CM ---
POD #4: RUL lung wedge resection. Chest tube. Fluid restriction. Discharge POC: SNF vs HH. Will await further evals and definitive plan. Patient does not feel he needs services at discharge.
--- NOTE | 2025-03-02 15:15 | PTCARENOTE ---
Physician removed right chest tube. Dressing saturated with serous sang drainage. Dressing changed with 4x4, abd. Silk tape caused skin tears when removed, so medipore was used with new dressing change. Patient ambulating in halls with walker. RA
sat 88% after ambulation. At rest 92% RA
[2025-03-02 15:51] VITALS: BP 115/51
[2025-03-02] MEDS: MIRALAX 17 GRAMS PO (15:52)
[2025-03-02 16:33] LABS: Glucose - Point of Care 193 mg/dl (70-99)
--- NOTE | 2025-03-02 18:03 | W.PN.GENERIC ---
Assessment / Plan
-
S/p Minimally invasive right upper lobectomy POD #4
Doing much better
pain better controlled
SOB improving
Atrial fibrillation
now back in NSR
Transient AF is common after lung surgery
Treatment as per cardiology svc
Chest tube removed
Post-CXR much better with dec PTX and increased lung expansion
Continue to encourage ambulation
Pt is surgically stable for discharge
Will discharge patient with homecare vs SNIF when ok with medicine svc and cardiology
Case mgt to see pt for discharge planning
Await path
Physician Progress Note
Subjective
No complaints. No significant pain. Some dyspnea on exertion
Objective
Vital Signs
Temp Pulse Resp BP Pulse Ox
97.9 F 80 18 115/51 94
03/02/25 15:51 03/02/25 15:51 03/02/25 15:51 03/02/25 15:51 03/02/25 15:51
Lab Results
03/02/25 07:58
03/02/25 07:58
Chest - decreased BS x2
[2025-03-02 19:00] VITALS: BP 130/54
[2025-03-02] MEDS: PEPCID 40 MG PO (21:28)
[2025-03-02] MEDS: LIPITOR 10 MG PO (21:28)
[2025-03-02] MEDS: ZESTRIL 5 MG PO (21:29)
[2025-03-02] MEDS: PROTONIX 40 MG PO (21:29)
[2025-03-02 21:39] LABS: Glucose - Point of Care 153 mg/dl (70-99)
[2025-03-02 23:00] VITALS: BP 127/56
[2025-03-03 03:02] VITALS: BP 129/51
[2025-03-03] MEDS: TYLENOL 650 MG PO ×2 (03:30→12:01)
[2025-03-03] MEDS: TORADOL 15 MG IV ×2 (05:20→12:01)
[2025-03-03 07:05] LABS: Hematocrit 39.3 % (39.0-52.0); Hemoglobin 13.6 g/dL (13.0-18.0); Mean Corp Hgb Conc. 34.6 g/dL (33.0-37.0); Mean Corpuscular Volume 92.9 fL (80.0-94.0); Platelet Count 192 10^3/uL (130-400); Red Cell Dist. Width 12.9 % (11.5-14.5)
[2025-03-03 07:27] LABS: Blood Urea Nitrogen 28 mg/dl (9-20); Calcium 9.3 mg/dl (8.4-10.2); Carbon Dioxide 30 mmol/L (22-30); Chloride 95 mmol/L (98-107); Estimated Creatinine Clearance 84 ml/min; Glucose 148 mg/dl (70-99); Potassium 4.3 mmol/L (3.5-5.1); Sodium 131 mmol/L (135-145); eGFR > 60.00
[2025-03-03 07:28] LABS: Glucose - Point of Care 139 mg/dl (70-99)
[2025-03-03 07:45] VITALS: BP 137/54
[2025-03-03] MEDS: DUONEB 3 ML INH ×2 (08:14→11:42)
[2025-03-03] MEDS: PULMICORT 0.5 MG INH (08:14)
--- NOTE | 2025-03-03 09:13 | W.PN.PUL3 ---
Today's Communication / Plan
-
Doing well, chest tube is discontinued
Stable on RA, no new complaints, wants to go home
We discussed OP FU, he understands
Discharge planning per team
We will sign off at this time, please call with questions
Assessment
-
79-year-old male with a past medical history of SYDNEE, severe persistent asthma, right upper lobe lung cancer, history of colon polyps, DM type II, GERD, mixed hyperlipidemia, hypertension, CAD s/p CABG, and thyroid goiter s/p thyroid resection who
presents with elective lung surgery due to lung cancer. �Patient recently underwent CT-guided needle biopsy via interventional radiology on 12/21/2024, showing pulmonary adenocarcinoma which was well-moderately differentiated with a predominantly
lipidic pattern with focal acinar, micropapillary and papillary patterns. There was no PD-L1 expression and relevant biomarkers were not detected. PET/CT on 01/15/2025 showed stable medial right upper lobe apical subpleural nodule with minimal�mild
FDG avidity, with minimal increase in size of subpleural posterior right upper lobe nodule with slightly increased minimal�mild FDG avidity with no additional suspicious FDG avid lesions in the body. Patient underwent minimally invasive right upper
lobectomy, and was transferred to ICU postoperatively for further care. 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 Ortiz on 04/07/2024
Impression:
#Right upper lobe NSCLC s/p minimally invasive right upper lobe lobectomy � POD #2
#Leukocytosis - likely reactive and now normal WBC as of 02/28
#Hyponatremia (mild)
#DM type II v/b hyperglycemia (mild)
#Chronic cough � now resolved s/p surgery above
#History of severe persistent asthma/COPD on Breztri + Tezspire in office
Plan:
- Postoperative management as per surgical oncology
- Chest tube per surgery - discontinued 12/17
- Follow up path from OR
- Pain control
- Trend sNa
- Anti-tussants as needed
- Maintain SpO2 >90-94%, using supplemental O2 as needed
- Continue DuoNebs/budesonide
- Maintain MAP>65
- Replete electrolytes with K>4, Mg>2
- Maintain euglycemia with goal BG 140-180
- Trend H/H and transfuse if needed to keep Hb>7g/dL; keep plt>50k (given post-op status)
- prn nebulized bronchodilators
- Incentive spirometer encouraged 10x per hour for at least 4 hrs a day
- DVT ppx: HSQ
Outpatient FU to be arranged
Discharge planning per team
Total time spent today was 40 minute for this encounter. Time includes reviewing laboratory tests/imaging results, reviewing pertinent medical records, obtaining and reviewing medical history, performing an appropriate physical exam, ordering
medications, tests and procedures. Time also includes documentation of this encounter, coordinating patient care and communicating with other healthcare professionals. Total time does not include separately billed tests or procedures performed on
this date of service.
Subjective Data
-
Date of Service:
Date of Service: March 03, 2025
Chief Complaint: Pulmonary Follow Up
Subjective:
Chest tube removed, stable on RA
No new complaints
Wants to go home
Objective Data
Data Reviewed
Vital Signs / I&O / Oxygen:
Vital Signs
Temp Pulse Resp BP Pulse Ox
97.6 F 79 18 137/54 96
03/03/25 07:45 03/03/25 08:17 03/03/25 08:17 03/03/25 07:45 03/03/25 08:17
Intake and Output
03/02/25 03/03/25 03/04/25
06:59 06:59 06:59
Intake Total 480 / 480 710 / 710
Output Total 1490 / 1570 80 / 80
Balance -1010 / -1090 630 / 630
SaO2 96
Nasal Cannula flow liters per 2
minute
Physical Exam
General: Respiratory Distress (n), Comfortable, Chills (n) and Sweats (n)
HEENT: Normocephalic and Anicteric
Cardiovascular: S1-S2 and Peripheral Edema (trace bilateral LE edema)
Respiratory: Wheeze (mild expiratory), Crackles (bilateral (R>L)), Rhonchi (bilateral (R>L)), Non-Labored Respirations, Stridor (n), Chest Tube (right-sided chest tube with air leak during cough, currently on waterseal) and Other (bubbling heard in
anterior hemithorax (right))
GI: Soft, Non Distended, Non Tender and Normal Bowel Sounds
Neurology: Awake, Alert and Tremors (n)
Skin: Warm, Dry, Cyanosis (n) and Jaundice (n)
Labs/Micro/Reports
Lab Data
03/03/25 06:40
03/03/25 06:40
[2025-03-03] MEDS: BUSPAR 5 MG PO (09:16)
[2025-03-03] MEDS: TYLENOL PO (09:16)
[2025-03-03] MEDS: NIASPAN TIME RELEASE 500 MG PO (09:16)
[2025-03-03] MEDS: PROSCAR 5 MG PO (09:16)
[2025-03-03] MEDS: FARXIGA 10 MG PO (09:16)
[2025-03-03] MEDS: COLACE 100 MG PO (09:16)
[2025-03-03] MEDS: TOPROL XL 25 MG PO (09:17)
[2025-03-03] MEDS: HEPARIN 5000 UNITS SC (09:17)
[2025-03-03] MEDS: NORVASC 5 MG PO (09:17)
[2025-03-03] MEDS: NEURONTIN 300 MG PO (09:17)
[2025-03-03] MEDS: FLOMAX 0.4 MG PO (09:17)
[2025-03-03] MEDS: NOVOLOG FLEXPEN-MODERATE RESISTANCE SC (09:18)
[2025-03-03 10:35] VITALS: BP 125/49; PULSE 65; O2SAT 96
[2025-03-03] MEDS: MIRALAX 17 GRAMS PO (10:51)
[2025-03-03 11:10] VITALS: BP 132/74
[2025-03-03 11:59] LABS: Glucose - Point of Care 168 mg/dl (70-99)
[2025-03-03] MEDS: NOVOLOG FLEXPEN-MODERATE RESISTANCE 1 UNITS SC (12:02)
[2025-03-03 12:29] LABS: Troponin I 0.079 ng/ml
--- NOTE | 2025-03-03 12:37 | W.PN.HOSP.TC ---
Today's Communication/Plan
-
Fluid restriction 48 oz/day
Follow-up BMP in 3 to 5 days, liberalize fluid restriction as indicated
Continue Toprol
Anticoagulation as per cardiology
Medically clear after recommendations from cardiology
Follow-up PCP, cardiology, Dr. Ortiz outpatient
Assessment / Plan
Assessment / Plan
Physical Exam
General: Obese, No Apparent Distress
HEENT: NormoCephalic, Anicteric and Moist mucous membranes
Respiratory: Coarse breath sounds and Chest Tube (R sided chest CT )
Cardiac: S1/S2 and Regular Rhythm
GI: Soft and Non Tender
Musculoskeletal: No Clubbing, No Cyanosis, Edema, Left Lower Extremity and Edema, Right Lower Extremity
Neuro: Awake
Psych: Calm
HPI: HPI: 79-year-old male with a past medical history of diabetes, hypertension, hyperlipidemia, obesity, SYDNEE, GERD, CAD status post CABG, and lung cancer status post right upper lobe resection 02/26/2025 presents with mild respiratory distress
after extubation postoperatively. Per report, patient was a difficult intubation for his surgery. He was extubated postoperatively, and has mild respiratory distress. He is currently requiring 4 L of oxygen. He does report shortness of breath.
Denies nausea. He also reports his right chest incisional pain is 9 out of 10 in intensity. No fever.
#Acute hypoxic respiratory insufficiency
#Mild respiratory distress postoperatively after extubation
#s/p minimally right upper lobectomy and mediastinal lymph node dissection POD #3
Wean o2 as tolerated
Continue bronchodilators, CPAP HS
02/28�patient short of breath, given Lasix 20 mg IV as recommended by Dr. Ortiz
Shortness of breath also due to pain from chest tube and surgery, continue pain medications prn
CT management as per CT Surg -CT removed 03/02�tolerating well
Early ambulation
PT/OT
#Right-sided lung cancer
Status post right upper lobe resection 02/26/[address] Ortiz, follow-up on pathology results
Continue chest tube management as per Dr. Ortiz/pulmonology
#Atrial Fibrillation, new
-converted to Sinus
-Cont Toprol
-ECHO stable
-Anticoagulation as per cardiology, cleared by surgery
#Non Ischemic Myocardial Injury
-most likely 2/2 to Afib with Chest tube
-no chest pain
-Cards on board
- No significant wall motion abnormalities
�Continue Eliquis
#Hyponatremia
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
-FWR
-Monitor Na, monitor BMP in 3 to 5 days with PCP; fluid restriction 48 ounces per day, may liberalize outpatient.
#Acute blood loss anemia
Secondary to surgery, trend hemoglobin
Will defer anticoag with new afib to Cardiology/Surg/Onc
Anticoag once cleared by Surgery
#Leukocytosis
Likely reactive, patient is afebrile
#Coronary artery disease status post CABG
Continue aspirin, statin
#Diabetes
Patient on Invokana at home. He is ordered Farxiga here. Hgb A1c 7.1
Continue carb controlled diet, sliding scale insulin
#Essential hypertension
Continue amlodipine, lisinopril
#Hyperlipidemia
Continue statin, niacin
#Obstructive sleep apnea
CPAP at bedtime
#Gastroesophageal reflux disease
Continue PPI, H2 kina
#BPH
Cerda removed 02/27, he is voiding
Continue finasteride, added Flomax, continue bladder scan protocol
#Anxiety
Continue BuSpar
#Obesity due to excess calories
Affects all aspects of care
DVT prophylaxis�subcu heparin as per surgical oncology
Full code
Anticipated Discharge: Today
Subjective/Interval History
-
Date of Service: March 03, 2025
no acute events; walking with PT. Chest tube out
Objective Data
-
Labs:
Laboratory Results
03/03/25
06:40
WBC 6.6
Hgb 13.6
Hct 39.3
Plt Count 192
Sodium 131 L
Potassium 4.3
Chloride 95 L
Carbon Dioxide 30
BUN 28 H
Creatinine 0.8
Glucose 148 H
Calcium 9.3
Vital Signs:
Vital Signs
Temp Pulse Resp BP Pulse Ox
97.8 F 83 16 132/74 97
03/03/25 11:10 03/03/25 11:44 03/03/25 11:44 03/03/25 11:10 03/03/25 11:44
I&O
03/02/25 03/03/25 03/04/25
06:59 06:59 06:59
Intake Total 480 / 480 710 / 710
Output Total 1490 / 1570 80 / 80
Balance -1010 / -1090 630 / 630
Review of Systems
-
History Source: Patient
All other systems: Not reviewed unless documented
Constitutional: Reports No Symptoms; Denies Fever
EENT: Reports No Symptoms Reported
Respiratory: Reports No Symptoms
Cardiac: Reports No Symptoms
Abdomen/GI: Reports No Symptoms
Genitourinary: Reports No Symptoms
Neuro: Reports Dizzy; Denies Headache, Weakness, Numbness or Seizures
Hematologic / Lymphatic: Reports No Symptoms
Physical Exam
-
General: No Apparent Distress and Comfortable
HEENT: Moist Mucous Membranes; Negative Oxygen
Respiratory: Clear to Auscultation
Cardiac: Regular Rhythm and S1/S2; Negative Murmur or Rub
GI: Soft, Nontender, Nondistended and Normal Bowel Sounds
Musculoskeletal: No Edema
Skin: Warm
Neuro: Awake, Alert, Oriented, No Motor Deficits and Nonfocal/Grossly Intact
Psych: Calm and Intact Judgement/Insight
Data Reviewed
-
Diagnostic Radiology: Image personally visualized and interpreted, Report Reviewed by me and Discussed with Physician
CT Scan: Image personally visualized and interpreted, Report Reviewed by me and Discussed with Physician
Labs: Labs Reviewed by me and Discussed with Physician
Old Records: Reviewed
--- NOTE | 2025-03-03 14:27 | W.DS.TRANS ---
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
-
Discharge Instructions:
Discharge Diagnosis/Procedures Lung cancer
Diet Restrict fluids to 48 oz,No restrictions
Activity As tolerated,No strenuous activity
Driving Restrictions Not until seen by your Dr
Bathing Restrictions OK to Shower
Blood Work follow up bmp (monitoring Sodium - in 3-5 days).
Has evidence of SIADH - on Fluid restriction
required for now
Instructions:
Stand-Alone Forms:
Changes to Home Medications: Yes
Discharge Medications:
DC Medications w/original date entered in [facility]
canagliflozin 100 mg tablet (Invokana) 300 mg PO DAILY Diabetes 04/13/19
multivitamin with folic acid 400 mcg tablet (Tab-A-Fabi) 1 tab PO DAILY Supplement 04/13/19
amlodipine 2.5 mg tablet 2.5 mg PO DAILY Blood pressure #30 tabs 10/01/23
buspirone 5 mg tablet 5 mg PO BID Mental Health/Anxiety 03/02/24
famotidine 40 mg tablet 40 mg PO HS Gastrointestinal Issue 03/02/24
finasteride 5 mg tablet 5 mg PO DAILY Urinary Issue 03/02/24
lisinopril 5 mg tablet 5 mg PO HS Blood pressure 03/02/24
pantoprazole 40 mg tablet,delayed release 40 mg PO HS Gastrointestinal Issue 03/02/24
aspirin 81 mg capsule 81 mg PO DAILY Blood Clot Prevention/Tx 04/03/24
niacin 500 mg tablet,extended release 24 hr 500 mg PO BID Supplement 04/03/24
wheat dextrin 1 gram tablet (Benefiber (wheat dextrin)) 1 g PO DAILY Supplement 04/03/24
simvastatin 10 mg tablet 10 mg PO HS High Cholesterol 07/29/24
albuterol sulfate 90 mcg/actuation breath activated powder inhaler 2 inh inhalation Q6H PRN shortness of breath or wheezing #1 ea 08/29/24
tezepelumab-ekko 210 mg/1.91 mL (110 mg/mL) subcutaneous syringe (Tezspire) 210 mg SC Q4W Lung/Breathing Issues 02/19/25
docusate sodium 100 mg capsule 100 mg PO BID stool softener while taking narcotics #60 caps 03/03/25
gabapentin 300 mg capsule 300 mg PO TID #90 caps 03/03/25
oxycodone 5 mg tablet 5 mg PO Q4HPRN PRN moderate pain #30 tabs 03/03/25
Home Medication Changes
Pending Results: No
--- NOTE | 2025-03-03 14:28 | W.DCSUMMARY ---
Addendum entered and electronically signed by Jolynn Galicia PA-C 03/03/25 14:47:
Prior to discharge the cardiology team amended the discharge instructions to include Eliquis 5 mg twice daily and to discontinue aspirin 81 mg daily.
Original Note:
Discharge Summary
Discharge Data
Date of Admission: 02/26/25
Date of Discharge: 03/03/25
-
Pending Results: No
Hospital Course
DIAGNOSIS: Right upper lobe lung cancer
PROCEDURE: Minimally invasive right upper lobe cancer resection and mediastinal lymph node dissection
HISTORY OF PRESENT ILLNESS:
He is an 79-year-old man who presented to me for a surgical opinion regarding a recently diagnosed right upper lobe lung cancer. in December 2023, he had a cervical MRI for neck pain, demonstrating incidental right upper lobe lung nodules and a
substernal goiter. A dedicated chest CT scan done on 02/10/24 showed a 2.8 cm apical right lung nodule and a 9 mm spiculated density in the posterior right upper lobe. We underwent a resection right substernal goiter on 04/07/24, demonstrating a
benign goiter without any evidence of malignancy. Follow-up CT scans demonstrated enlarging right upper lobe nodules. On 09/28/2024, he underwent robotic bronchoscopy and EBUS, revealing atypical cells from both lung nodules with negative mediastinal
lymph nodes. 12/21/24, he underwent a CT-guided biopsy of the posterior upper lung nodule, demonstrating findings consistent with adenocarcinoma. I reviewed the films and the official readings in my office. His lung function test from 09/08/24 showed
FEV1 of 1.86 L (76%), FVC of 2.75 L (79%), and DLCO of 83%. His PET scan from 103,125 showed no evidence of regional or distant metastatic disease. He also had a brain MRI on 09/04/24, showing no evidence of metastatic disease. We reviewed the CT,
MRI, and PET scan films and official readings in my office. He has a 25-year smoking history, which he stopped in 1995. He has no obvious history of occupational chemical exposure. He denied fevers, chills, chest pain, dyspnea, cough, or recent
weight loss. He presented for lung resection.
PAST MEDICAL HISTORY: CAD, RBBB, HTN, SYDNEE, DM2, GERD, and pulmonary nodules
ALLERGIES: iodine and sulfa drugs.
REVIEW OF SYSTEMS: Unremarkable.
SOCIAL HISTORY: No EtOH or tobacco use.
FAMILY HISTORY: Non-contributory.
PHYSICAL EXAMINATION:
He was anicteric. The heart had a regular rate. The chest was clear bilaterally. He had no cervical, supraclavicular, or axillary lymphadenopathy.
HOSPITAL COURSE:
The patient presented to the hospital and underwent uneventful surgery. Postoperatively, the patient was transferred to the ICU then to a surgical floor, where he recovered without any problems except for a transient atrial fibrillation which
converted spontaneously to NSR. On postoperative day #5, he was discharged home. The patient�s condition on discharged was stable.
Discharge Plan
-
Patient Disposition: Home (Routine Discharge)
Discharge Diagnosis/Procedures: Lung cancer
Condition: Fair
Diet: No restrictions and Restrict fluids to 48 oz
Activity: As tolerated and No strenuous activity
Driving Restrictions: Not until seen by your Dr
Bathing Restrictions: OK to Shower
Blood Work: follow up bmp (monitoring Sodium - in 3-5 days). Has evidence of SIADH - on Fluid restriction required for now
Activity Restrictions/Additional Instructions:
Call Dr. Ortiz's Office for a follow-appointment ([phone]).
The presecriptions for neurontin and narcotic for pain sent to the patient's pharmacy
Referrals:
Paramjit Menard MD [Active, Pulmonary Medicine] - in three to four weeks
Referral Note: PFT
Yuliya Roman MD [Family Provider, Family Practice]
Prescriptions:
New
docusate sodium 100 mg Capsule
100 mg PO BID Qty: 60 0RF
gabapentin 300 mg Capsule
300 mg PO TID Qty: 90 0RF
oxycodone 5 mg Tablet
5 mg PO Q4HPRN PRN (Reason: moderate pain) Qty: 30 0RF
Continued
multivitamin with folic acid [Tab-A-Fabi] 1 TABLET tablet
1 tab PO DAILY
Invokana 100 MG tablet
300 mg PO DAILY
amlodipine 2.5 mg Tablet
2.5 mg PO DAILY Qty: 30 0RF
Rx Instructions:
Take 1 tablet by mouth once daily
buspirone 5 mg Tablet
5 mg PO BID
famotidine 40 mg Tablet
40 mg PO HS
pantoprazole 40 mg Tablet,Delayed Release (Dr/Ec)
40 mg PO HS
finasteride 5 mg Tablet
5 mg PO DAILY
lisinopril 5 mg tablet
5 mg PO HS
niacin 500 mg Tablet Extended Release 24 Hr
500 mg PO BID
Benefiber (wheat dextrin) 1 gram Tablet
1 g PO DAILY
aspirin 81 mg Capsule
81 mg PO DAILY
simvastatin 10 mg Tablet
10 mg PO HS
albuterol sulfate 90 mcg/actuation aerosol powdr breath activated
2 inh inhalation Q6H PRN (Reason: shortness of breath or wheezing) Qty: 1 0RF
Tezspire 210 mg/1.91 mL (110 mg/mL) Syringe
210 mg SC Q4W
Discharge Orders:
Discharge Patient (As Directed); Ordered 03/03/25
Ordered By: Raymond Ortiz
Discharge Date and Time
Print Language: IRISH
[2025-03-03 14:43] VITALS: BP 139/51
--- NOTE | 2025-03-03 14:47 | W.PN.UPDATE ---
Update Note
Progress Note Update
Troponin was 0.118 when checked on 03/02/2025 and on recheck this morning it had decreased to 0.079. Chest tube removed on 03/02/2025. Eliquis to start on 03/03/2025 PM, medication discharge instructions amended and Eliquis e-scribed by
cardiology. Cardiology follow-up arranged.
--- NOTE | 2025-03-03 17:00 | CM ---
Patient has been medically cleared for discharge to home with no additional skilled services. HH was offered and patient declined. He will not be homebound. Offered to obtain script for Pulm Rehab. Patient did not want to wait and said he would
get it from his PCP. transported home.
== END 2025-03-03 15:22 | disposition home or self-care (01) | DRG 164 ==
LOC: 2 SOUTH 09:58
PROVIDERS: Family Medicine; Internal Medicine Cardiovascular Disease; Nurse Practitioner Family; Physician Assistant Medical; ADMITTING PHYSICIAN Surgery; ATTENDING PHYSICIAN Internal Medicine; CONSULT PHYSICIAN Internal Medicine Critical Care Medicine; FAMILY PHYSICIAN Family Medicine; OTHER PHYSICIAN Internal Medicine Interventional Cardiology
PROC: 07B70ZX Excision of Thorax Lymphatic, Open Approach, Diagnostic (ICD-10-PCS; 2025-03-02)
PROC: 0BTC0ZZ Resection of Right Upper Lung Lobe, Open Approach (ICD-10-PCS; 2025-03-02)
DX: C34.11 Malignant neoplasm of upper lobe, right bronchus or lung (principal); E87.1 Hypo-osmolality and hyponatremia; I45.2 Bifascicular block; G47.33 Obstructive sleep apnea (adult) (pediatric); I10 Essential (primary) hypertension; I25.10 Atherosclerotic heart disease of native coronary artery without angina pectoris; K21.9 Gastro-esophageal reflux disease without esophagitis; J45.50 Severe persistent asthma, uncomplicated; J44.89 Other specified chronic obstructive pulmonary disease; Z86.0100 Personal history of colon polyps, unspecified; E11.65 Type 2 diabetes mellitus with hyperglycemia; E78.2 Mixed hyperlipidemia; D72.829 Elevated white blood cell count, unspecified; F41.9 Anxiety disorder, unspecified; K58.9 Irritable bowel syndrome, unspecified; N40.0 Benign prostatic hyperplasia without lower urinary tract symptoms; Z95.5 Presence of coronary angioplasty implant and graft; K76.0 Fatty (change of) liver, not elsewhere classified; Q27.9 Congenital malformation of peripheral vascular system, unspecified; E89.0 Postprocedural hypothyroidism; Z95.1 Presence of aortocoronary bypass graft; Z87.891 Personal history of nicotine dependence; Z88.2 Allergy status to sulfonamides; Z79.82 Long term (current) use of aspirin; R09.02 Hypoxemia; E66.09 Other obesity due to excess calories; Z68.36 Body mass index [BMI] 36.0-36.9, adult; T88.4XXA Failed or difficult intubation, initial encounter; Y72.8 Miscellaneous otorhinolaryngological devices associated with adverse incidents, not elsewhere classified; I48.91 Unspecified atrial fibrillation; Z79.84 Long term (current) use of oral hypoglycemic drugs; Z79.899 Other long term (current) drug therapy; Z82.49 Family history of ischemic heart disease and other diseases of the circulatory system; Z91.041 Radiographic dye allergy status; Z91.199 Patient's noncompliance with other medical treatment and regimen due to unspecified reason
CPT/HCPCS: 36415; 71045; 80048; 80053; 81459; 82947; 82962; 83036; 83735; 83880; 84100; 84443; 84484; 85027; 85610; 85730; 86850; 86900; 86901; 88305; 88307; 88309; 88313; 88331; 88342; 93005; 93306; 94640; 97116; 97163; 97167; 97530; C9250

== ENCOUNTER → 2025-03-08 14:12 | Outpatient (REF) | payer MEDICARE, OTHER, SELFPAY ==
[2025-03-08 15:36] LABS: Blood Urea Nitrogen 14 mg/dl (9-20); Calcium 9.3 mg/dl (8.4-10.2); Carbon Dioxide 30 mmol/L (22-30); Chloride 97 mmol/L (98-107); Glucose 215 mg/dl (70-99); Potassium 4.5 mmol/L (3.5-5.1); Sodium 133 mmol/L (135-145); eGFR > 60.00
== END ==
LOC: REG 14:12
PROVIDERS: ATTENDING PHYSICIAN Family Medicine
DX: R79.9 Abnormal finding of blood chemistry, unspecified (principal)
CPT/HCPCS: 36415; 80048